=== PATIENT | female | born 1950 | race Caucasian/White ===

== ENCOUNTER 2020-04-10 10:12 | Emergency (ER) | payer MEDICARE, SELFPAY ==
--- NOTE | ~2020-04-10 | XR_ITS ---
EXAMINATION: XR shoulder LT min 2V DATE: 04/10/2020 10:45 INDICATION: Left shoulder injury and pain. TECHNIQUE: 4 views of left shoulder were obtained. COMPARISON: None. FINDINGS: There is an avulsion fracture of greater tuberosity of proximal humerus with 2 mm displacem ent. Glenohumeral joint is normal. There is mild acromioclavicular joint osteoarthritis. Electrodes o verlie the spine. There are widespread curvilinear densities in the visualized portions of the lungs, consistent with embolized bone cement. There are changes of vertebroplasty in thoracic spine. IMPRESSION: 1. Avulsion fracture of greater tuberosity of proximal left humerus. Reviewed, dictated and finalized at location A.
[2020-04-10 10:20] VITALS: BP 154/63; PULSE 78; RESP 20; TEMP 37.1; O2SAT 100
--- NOTE | 2020-04-10 10:46 | ED.UPPEXIN ---
HPI - Extremity Injury (Upper) General Chief Complaint: Extremity Injury, Upper Stated Complaint: left shoulder injury Time Seen by Provider: 04/10/20 10:46 Source: patient and RN notes reviewed Mode of arrival: ambulatory Limitations: no limitations History of Present Illness HPI narrative: 69-year-old female presents with concern for left shoulder injury. Reports this morning she was gardening and slipped on a slippery flower petal on her garage floor. Reports her left arm became hyper extended in front of her body. She reports pain with range of motion, weakness with range of motion, is unable to raise the arm to shoulder level. She denies any numbness and tingling in the hand. She denies any head injury, loss of consciousness, hip pain, other pain. MD complaint: injury to: left and shoulder Related Data Home Medications Medication Instructions Recorded Confirmed gabapentin 300 mg capsule 300 mg PO cap 10/12/19 multivitamin 1 tablet PO DAILY 10/12/19 aspirin 81 mg tablet,delayed 81 mg PO DAILY 12/28/19 release cholecalciferol (vitamin D3) 100 2,000 unit PO DAILY cap 12/28/19 mcg (4,000 unit) capsule ferrous sulfate 325 mg (65 mg 325 mg PO DAILY 12/28/19 iron) tablet furosemide 20 mg tablet 20 mg PO QAM PRN tablet 12/28/19 morphine 30 mg tablet,extended 30 mg PO Q8H tablet 12/28/19 release Allergies Allergy/AdvReac Type Severity Reaction Status Date / Time codeine Allergy Unknown Nausea Verified 04/10/20 10:21 sumatriptan Allergy Unknown chest pain Verified 04/10/20 10:21 Review of Systems Review of Systems: Narrative: CONSTITUTIONAL: Denies malaise, chills, sweats, or fever. CARDIOVASCULAR: Denies chest pain, palpitations, or edema. RESPIRATORY: Denies cough or dyspnea. SKIN: Denies abrasion, bruising, redness MUSCULOSKELETAL: Reports left shoulder pain, decreased range of motion NEUROLOGIC: Denies numbness, weakness All systems reviewed & are unremarkable except as noted in HPI and below PMFSH Past Medical History Medical History Anemia Arthritis Diabetes Social History Social History Smoking status: Never smoker Second hand tobacco smoke exposure: No Alcohol intake: never Comments At time of signature, agree with nursing past medical, surgical, social and family history. There is no relevant family history pertinent to the presenting complaint Exam Narrative: Exam Narrative: GENERAL: Well-appearing, well-nourished, and in no acute distress. HEAD: Normocephalic, atraumatic. EYES: PERRLA, conjunctivae clear NECK: Supple. CHEST: Speaks in full sentences. No respiratory distress. HEART: Regular rate and rhythm. Normal and equal peripheral pulses. EXTREMITIES: Left shoulder has normal sensation, no edema, limited range of motion. 3/5 strength with abduction and abduction flexion and extension. Normal sensation with sensitivity to light touch and pain. No open wounds, no skin tenting, no devitalized tissue or atrophy, no trophic changes, no ecchymosis, no obvious deformity, alignment normal, lateral joint tenderness, nearby joints and structures intact. Distal pulses palpable and equal bilaterally, skin warm, dry, pink. Capillary refill less than 3 seconds. SKIN: Warm, dry, no rash. NEURO: Alert and oriented x3. PSYCH: Normal mood and affect Course Course Emergency Course: Patient is aware of diagnosis, understands and agrees to treatment plan. Anticipatory guidance given. Patient agrees to follow-up as directed and is aware of reasons to seek care at the emergency department. Portions of this record may have been created with voice recognition software Vital Signs Vital signs: Vital Signs Temperature 98.7 F 04/10/20 10:20 Pulse Rate 78 04/10/20 10:20 Respiratory Rate 20 04/10/20 10:20 Blood Pressure 154/63 H 04/10/20 10:20 Pulse Oximetry 100 04/10/20
== END 2020-04-10 11:10 | disposition home or self-care (01) ==
PROVIDERS: Emergency Provider Nurse Practitioner; PCP Family Medicine
DX: S42.252A Displaced fracture of greater tuberosity of left humerus, initial encounter for closed fracture (principal); D64.9 Anemia, unspecified; M19.90 Unspecified osteoarthritis, unspecified site; E11.9 Type 2 diabetes mellitus without complications; Z79.84 Long term (current) use of oral hypoglycemic drugs; Z79.82 Long term (current) use of aspirin; W01.0XXA Fall on same level from slipping, tripping and stumbling without subsequent striking against object, initial encounter
CPT/HCPCS: 73030; 99214; A4565; G0463

== ENCOUNTER 2020-04-20 00:29 | Outpatient (CLI) | payer MEDICARE, SELFPAY ==
[2020-04-20 20:58] LABS: SARS-CoV-2 RNA PCR Negative
== END 2020-04-20 00:30 | disposition home or self-care (01) ==
LOC: ANHCOVIDDT 00:30
PROVIDERS: PCP Family Medicine; Visit Provider Orthopaedic Surgery
DX: Z01.812 Encounter for preprocedural laboratory examination (principal); Z11.59 Encounter for screening for other viral diseases
CPT/HCPCS: 87635; C9803; U0003

== ENCOUNTER 2020-04-20 08:00 | Outpatient (CLI) | payer MEDICARE, SELFPAY ==
--- NOTE | 2020-04-20 08:01 | ECG_ITS ---
Measurements Intervals [place] Rate: 61 P: 24 IA: 171 QRS: -17 QRSD: 95 T: -19 QT: 410 QTc: 416 Interpretive Statements SINUS RHYTHM POOR R WAVE PROGRESSION, ANTERIOR LEADS BORDERLINE T WAVE ABNORMALITY- INFERIOR LEADS BASELINE ARTIFACT- I, II, III, AVR, AVL, AVF BORDERLINE ECG Electronically Signed On 04-20-2020 8:48:26 CDT by Roberto Pelletier D.O.
[2020-04-20 08:53] LABS: Hematocrit 38.3 % (37.0-47.0); Hemoglobin 12.3 g/dL (12.0-15.0)
[2020-04-20 09:06] LABS: Blood Urea Nitrogen 27 mg/dL (7-17); Calcium 9.6 mg/dL (8.4-10.2); Carbon Dioxide 28 mmol/L (22-30); Chloride 104 mmol/L (98-107); Estimated Glomerular Filt Rate > 60; Glucose 96 mg/dL (65-105); Potassium 3.7 mmol/L (3.4-5.0); Sodium 139 mmol/L (137-145)
== END 2020-04-20 08:01 | disposition home or self-care (01) ==
PROVIDERS: Anesthesiology; PCP Family Medicine; Visit Provider Orthopaedic Surgery
DX: D64.9 Anemia, unspecified (principal); E11.9 Type 2 diabetes mellitus without complications; I10 Essential (primary) hypertension; R94.31 Abnormal electrocardiogram [ECG] [EKG]
CPT/HCPCS: 36415; 80048; 85014; 85018; 87635; 93005; C9803; U0003

== ENCOUNTER 2020-04-23 01:26 | Day surgery (SDC) | payer MEDICARE, SELFPAY ==
[2020-04-19 13:23] VITALS: BMI 23.7
--- NOTE | 2020-04-22 16:08 | WPDANESEPP ---
Anes - Eval Pre Procedure Procedure: Operation Date: 04/23/20 07:30 Proposed Procedures p Open Reduction Internal Fixation Left Shoulder Greater Tuberosity Fracture - Moises Hernandez MD Date/Time: 04/22/20 16:08 Pre Op Diagnosis: Left Greater Tuberosity Fracture Patient Data Age: 69 Gender: F Height: 1.6 m Weight: 60.78 kg Allergies Allergy/AdvReac Type Severity Reaction Status Date / Time No Known Allergies Allergy Verified 04/19/20 12:54 Home Medications Medication Instructions Recorded Confirmed Type gabapentin 300 mg capsule 300 mg PO DAILY cap 10/12/19 04/19/20 History multivitamin 1 tablet PO DAILY 10/12/19 04/19/20 History amlodipine 5 mg tablet 5 mg PO DAILY #90 tablet 12/16/19 04/19/20 Rx atorvastatin 10 mg tablet 10 mg PO DAILY #90 tablet 12/16/19 04/19/20 Rx diclofenac sodium 75 mg 75 mg PO BID #60 tablet 12/16/19 04/19/20 Rx tablet,delayed release hydrochlorothiazide 12.5 mg capsule 12.5 mg PO DAILY #90 cap 12/16/19 04/19/20 Rx metformin 500 mg tablet,extended 1,000 mg PO QPM #180 tablet 12/16/19 04/19/20 Rx release 24 hr cholecalciferol (vitamin D3) 100 2,000 unit PO DAILY cap 12/28/19 04/19/20 History mcg (4,000 unit) capsule ferrous sulfate 325 mg (65 mg 325 mg PO DAILY 12/28/19 04/19/20 History iron) tablet furosemide 20 mg tablet 20 mg PO QAM PRN tablet 12/28/19 04/19/20 History morphine 30 mg tablet,extended 30 mg PO Q8H tablet 12/28/19 04/19/20 History release tizanidine 2 mg tablet 2 mg PO TID PRN #90 tablet 12/29/19 04/19/20 Rx lisinopril 40 mg tablet 40 mg PO DAILY #90 tablet 02/27/20 04/19/20 Rx oxybutynin chloride 10 mg 10 mg PO .COMPLEX PRN #90 tablet 04/02/20 04/19/20 Rx tablet,extended release 24 hr vit C 250 mg-E 200 unit-zinc 40 1 tablet PO BID 04/12/20 04/19/20 History mg-copper 1 [id number] capsule Patient hx anesthesia problems: none Family hx anesthesia problems: none PMFSH Past Medical History Medical History Anemia Arthritis Back pain Diabetes A1C = 5.9 (08/01/2019) Hepatitis HTN (hypertension) Shingles Surgical History Surgical History (Updated 04/22/20 @ 16:09 by Rodríguez Bhagat CRNA) History of hernia repair (~05/30/15) History of hernia repair (~05/04/13) History of tonsillectomy and adenoidectomy Hx of appendectomy (~12/31/11) Family History Family History Grandparent Diabetes mellitus Father Acute myocardial infarction, Onset Age: 49 Sibling Malignant neoplasm of prostate Social History Social History Smoking status: Never smoker Second hand tobacco smoke exposure: No Alcohol intake: never Exam Day of Procedure 04/22/20 16:08
[2020-04-23] VITALS (10 sets, daily range): BP systolic 112–159; BP diastolic 58–70; PULSE 58–102; RESP 12–20; TEMP 35.8–36.4; O2SAT 92–98
--- NOTE | ~2020-04-23 | XR_ITS ---
EXAMINATION: XR shoulder LT min 2V DATE: 04/23/2020 10:31 INDICATION: Postoperative evaluation following left shoulder surgery. TECHNIQUE: AP and transscapular Y views of the left shoulder were obtained. COMPARISON: 04/10/2020 FINDINGS: And seen is a comminuted fracture of the left greater tuberosity. There appears to be slightly decrea sed in the degree of distraction of a few of the fragments at the junction of the posterior and middl e facets. Normal alignment at the acromioclavicular and glenohumeral joints with relatively preserved joint spaces. Numerous tiny linear and branching linear opacities throughout the left lung consisten t with embolized methylmethacrylate likely related to a lower thoracic vertebroplasty. Spinal stimula tor leads project over the lower thoracic spine. IMPRESSION: Comminuted fractures of the left greater tuberosity with decreased distraction of a few the bone frag ments. Reviewed, dictated and finalized at location A. IMPRESSION: Comminuted fractures of the left greater tuberosity with decreased distraction of a few the bone fragments.
[2020-04-23] MEDS: LACTATED RINGERS 1,000 ML 30 ML IV CONT ×2 (06:30→08:58)
[2020-04-23 06:39] LABS: Glucose Point of Care 99 (65-105)
--- NOTE | 2020-04-23 06:50 | WPDANESEPPF ---
Anes - Initial Pre Proc Eval Procedure: Operation Date: 04/23/20 07:30 Proposed Procedures p Open Reduction Internal Fixation Left Shoulder Greater Tuberosity Fracture - Moises Hernandez MD Date/Time: 04/23/20 06:50 Surgeon: Moises Hernandez MD Pre Op Diagnosis: Left Greater Tuberosity Fracture Patient Data Age: 69 Gender: F Height: 1.6 m Weight: 60.78 kg Allergies Allergy/AdvReac Type Severity Reaction Status Date / Time No Known Allergies Allergy Verified 04/19/20 12:54 Home Medications Medication Instructions Recorded Confirmed Type gabapentin 300 mg capsule 300 mg PO DAILY cap 10/12/19 04/19/20 History multivitamin 1 tablet PO DAILY 10/12/19 04/19/20 History amlodipine 5 mg tablet 5 mg PO DAILY #90 tablet 12/16/19 04/19/20 Rx atorvastatin 10 mg tablet 10 mg PO DAILY #90 tablet 12/16/19 04/19/20 Rx diclofenac sodium 75 mg 75 mg PO BID #60 tablet 12/16/19 04/19/20 Rx tablet,delayed release hydrochlorothiazide 12.5 mg capsule 12.5 mg PO DAILY #90 cap 12/16/19 04/19/20 Rx metformin 500 mg tablet,extended 1,000 mg PO QPM #180 tablet 12/16/19 04/19/20 Rx release 24 hr cholecalciferol (vitamin D3) 100 2,000 unit PO DAILY cap 12/28/19 04/19/20 History mcg (4,000 unit) capsule ferrous sulfate 325 mg (65 mg 325 mg PO DAILY 12/28/19 04/19/20 History iron) tablet furosemide 20 mg tablet 20 mg PO QAM PRN tablet 12/28/19 04/19/20 History morphine 30 mg tablet,extended 30 mg PO Q8H tablet 12/28/19 04/19/20 History release tizanidine 2 mg tablet 2 mg PO TID PRN #90 tablet 12/29/19 04/19/20 Rx lisinopril 40 mg tablet 40 mg PO DAILY #90 tablet 02/27/20 04/19/20 Rx oxybutynin chloride 10 mg 10 mg PO .COMPLEX PRN #90 tablet 04/02/20 04/19/20 Rx tablet,extended release 24 hr vit C 250 mg-E 200 unit-zinc 40 1 tablet PO BID 04/12/20 04/19/20 History mg-copper 1 [id number] capsule Laboratory Tests 04/23/20 06:33 POC Capillary Glucose 99 mg/dl mg/dl (65-105) ECG: Date of Service: 04/20/20 Procedure(s): CA 12 lead EKG Accession Number(s): [id number] cc: ~ Measurements Intervals [place] Rate: 61 P: 24 DC: 171 QRS: -17 QRSD: 95 T: -19 QT: 410 QTc: 416 Interpretive Statements SINUS RHYTHM POOR R WAVE PROGRESSION, ANTERIOR LEADS BORDERLINE T WAVE ABNORMALITY- INFERIOR LEADS BASELINE ARTIFACT- I, II, III, AVR, AVL, AVF BORDERLINE ECG Electronically Signed On 04-20-2020 8:48:26 CDT by Roberto Pelletier D.O. Dictated By: Roberto Pelletier DO 04/20/20 0832 Patient hx anesthesia problems: none Family hx anesthesia problems: none PMFSH Past Medical History Medical History Anemia Arthritis Back pain Diabetes A1C = 5.9 (08/01/2019) Hepatitis HTN (hypertension) Shingles Surgical History Surgical History (Updated 04/22/20 @ 16:09 by Rodríguez Bhagat CRNA) History of hernia repair (~05/30/15) History of hernia repair (~05/04/13) History of tonsillectomy and adenoidectomy Hx of appendectomy (~12/31/11) Family History Family History Grandparent Diabetes mellitus Father Acute myocardial infarction, Onset Age: 49 Sibling Malignant neoplasm of prostate Social History Social History Smoking status: Never smoker Second hand tobacco smoke exposure: No Alcohol intake: never Anes - Eval Final PreProcedure Day of Procedure 04/23/20 06:50 Informed Consent: The patient's anesthetic plan and its attendant risks and benefits were discussed with the patient/family/POA. Questions were wagner
--- NOTE | 2020-04-23 06:52 | P.PNAN_ITS ---
Anes - Eval Final PreProcedure Day of Procedure 04/23/20 06:52 Patient weight: normal Heart: regular rate and rhythm Lungs: clear to auscultation and normal air movement Airway: Mallampati scale class II Neurological: alert and oriented Last oral intake: >/= 8 hours ASA classification: III Emergent: no Anesthetic plan: proceed Anesthesia type and monitoring: general ETT Informed Consent: The patient's anesthetic plan and its attendant risks and b enefits were discussed with the patient/family/POA. Questions were solicited and answers provided to the satisfaction of the patient/family/POA.
--- NOTE | 2020-04-23 07:00 | WPDANESPNB ---
Anes - Peripheral Nerve Block Date/Time: 04/23/20 07:00 I have discussed with the patient/family/POA the placement of a peripheral nerve block for post-operative pain management, including associated risks, benefits, complications, and side effects. Alternative methods of post-operative analgesia were detailed. Questions were solicited and answers provided to the satisfaction of the patient/family/POA. Time-Out: A pre-procedural Time-Out was completed immediately before starting the procedure and confirmed: Patient Identification, Site, Procedure, Patient Position and the Availability of Requisite Equipment. Clinical Indications: Acute post-operative pain management requested by the operative surgeon. Nerve Block Insertion Note Anes-nerve block: supraclavicular left Patient position: supine Skin prep: chlorhexidine Needle: 22 gauge, stimulating, insulated echogenic needle. Needle length: 80 mm Technique: ultrasound (in plane) Injectate: bupivacaine 0.5% with epi 5 mcg/ml (20cc) Observations: tolerated well Complications: none Procedure start time:: 726 Procedure end time:: 730
--- NOTE | 2020-04-23 07:14 | WPDHPUPDATE1 ---
History and Physical Update Update Date/Time: 04/23/20 07:14 History and Physical has been reviewed, including an updated exam of the patient. There are NO changes in the patient's condition. Risks, benefits, and alternatives have been discussed and questions answered. Patient agrees to proceed with procedure.
[2020-04-23] MEDS: ceFAZolin 2 GM/D5W 50 ML 2 GM/50 ML BAG IVPB (07:31)
[2020-04-23] MEDS: BUPIVACAINE/EPINEPHRINE 0.25% 50 ML VIAL INFILTRATE (08:15)
--- NOTE | 2020-04-23 09:01 | PM.PROC ---
Procedure Note - Detailed Date of procedure: 04/23/20 Pre-op diagnosis: Left Greater Tuberosity Fracture Post-op diagnosis: same Procedure performed: Open reduction internal fixation left shoulder greater tuberosity fracture with repair of the rotator cuff Description of procedure: Patient was identified and proper site identified. In the preop holding area the anesthesia team performed a left upper extremity block. She was then taken to the operating room and transferred to the or table taking care to pad the torso and extremities. After general anesthetic induction and intubation, she was put in a semi beach chair position in the usual manner for a left shoulder procedure. Her head was secured taking care to neither rotate nor extend the head and neck. The left upper extremity was prepped and draped free in usual sterile fashion. The subcutaneous tissue in the area of the incision was injected with 10 cc of 0.25% Marcaine and epinephrine solution. An oblique anterior incision was made extending from the AC joint distally in line with the fibers of the deltoid. Subcutaneous tissue was sharply dissected down to the deltoid fascia. The deltoid was dissected off the anterior portion of the acromion in the distal end of the clavicle. A 3 cm split was made at the junction between the anterior and middle thirds of the deltoid. Care was taken to protect the axillary nerve during the procedure. The rotator cuff and greater tuberosity were examined. The main fragment of greater tuberosity was retracted with the cuff about 2 cm. The fracture site was cleared of debris and after thorough irrigation of the wound, the greater tuberosity fracture and rotator cuff were repaired back to their anatomic position with 2. Or and 2. Vicryl suture through bony bridge. This gave a ac repair which was stable as the shoulder was taken through range of motion. The wound was irrigated with sterile NaCl solution. The deltoid was repaired back to the acromion with 2. Vicryl suture passed through bone and the remainder of the deltoid repair carried out with 2. Vicryl. Subcutaneous tissue was reapproximated with three 0 V lock and tissue adhesive used for the skin. Sterile dressing was applied. There were no known intraoperative complications, and perioperative antibiotics were administered. Anesthesia: GETA Surgeon: Moises Hernandez MD Estimated blood loss (mL): 30 Drains: No Packing: No Pathology: none sent Complications: No immediate complications Condition: stable Disposition: PACU
[2020-04-23 09:02] LABS: Glucose Point of Care 105 (65-105)
--- NOTE | 2020-04-23 12:15 | SUR.PHASEII ---
1118 xrays of left shoulder done.
== END 2020-04-23 11:45 | disposition home or self-care (01) ==
PROVIDERS: PCP Family Medicine; Visit Provider Orthopaedic Surgery
PROC: (CPT 23410; principal; 2020-04-23 07:30)
DX: S42.252A Displaced fracture of greater tuberosity of left humerus, initial encounter for closed fracture (principal); S46.012A Strain of muscle(s) and tendon(s) of the rotator cuff of left shoulder, initial encounter; G89.18 Other acute postprocedural pain; W01.0XXA Fall on same level from slipping, tripping and stumbling without subsequent striking against object, initial encounter; D64.9 Anemia, unspecified; D11.9 Benign neoplasm of major salivary gland, unspecified; M19.90 Unspecified osteoarthritis, unspecified site; E11.9 Type 2 diabetes mellitus without complications; Z79.84 Long term (current) use of oral hypoglycemic drugs; Z79.82 Long term (current) use of aspirin
CPT/HCPCS: 64415; 23410; 73030; A4565; A9270; J0330; J0690; J1100; J2250; J2405; J2704; J3010; J7120

== ENCOUNTER 2020-06-18 10:05 | Emergency (ER) | payer MEDICARE, SELFPAY ==
[2020-06-18] VITALS (21 sets, daily range): BP systolic 127–152; BP diastolic 65–79; PULSE 71–108; RESP 13–25; TEMP 37.3; O2SAT 79–100
--- NOTE | 2020-06-18 10:19 | ED.GENADULT ---
HPI - General Adult General Chief complaint: Unspecified Stated complaint: sent to get labs drawn/doesnt feel right Time Seen by Provider: 06/18/20 10:18 History of Present Illness HPI narrative: 69 yo female presents from home for not feeling right . She reports that she has not been feeling well for a few days. This includes nausea, genralized weakness, and tremors. SHe reports the nausea has been presnet longer, so she has not been eating well. She had a recent left shoulder surgery. Following this she had some redeness of the shoulder and was started on antibiotics. She says that this is improving. She has chronic pain issues and is on morphine 30 mg [id number]. She has chronic constipation. Related Data Home Medications Medication Instructions Recorded Confirmed multivitamin 1 tablet PO DAILY 10/12/19 06/14/20 cholecalciferol (vitamin D3) 100 2,000 unit PO DAILY cap 12/28/19 06/14/20 mcg (4,000 unit) capsule ferrous sulfate 325 mg (65 mg 325 mg PO DAILY 12/28/19 06/14/20 iron) tablet furosemide 20 mg tablet 20 mg PO QAM PRN tablet 12/28/19 06/14/20 morphine 30 mg tablet,extended 30 mg PO Q8H tablet 12/28/19 06/14/20 release vit C 250 mg-E 200 unit-zinc 40 1 tablet PO BID 04/12/20 06/14/20 mg-copper 1 [id number] capsule aspirin [Alanna Chewable Aspirin] 81 mg PO DAILY 06/18/20 Allergies Allergy/AdvReac Type Severity Reaction Status Date / Time No Known Allergies Allergy Verified 06/19/20 13:41 Review of Systems Review of Systems: All systems reviewed & are unremarkable except as noted in HPI and below Constitutional: Constitutional: Reports chills, Denies fever(s) and Reports weakness Cardiovascular: Cardiovascular: Denies chest pain Respiratory: Respiratory: Reports dyspnea Gastrointestinal: Gastrointestinal: Reports bloating and Reports nausea Genitourinary: Genitourinary: Denies dysuria Musculoskeletal: Musculoskeletal: Reports back pain Neurologic: Reports dizziness, Denies syncope and Reports weakness Psychiatric: Psychiatric: Denies anxiety PMFSH Past Medical History Medical History Anemia Arthritis Back pain BMI 25.0-25.9,adult Diabetes A1C = 5.9 (08/01/2019) Hepatitis HTN (hypertension) Shingles Surgical History Surgical History Fracture of greater tuberosity of left humerus ORIF March 2020 History of hernia repair (~05/30/15) History of hernia repair (~05/04/13) History of tonsillectomy and adenoidectomy Hx of appendectomy (~12/31/11) Family History Family History Grandparent Diabetes mellitus Father Acute myocardial infarction, Onset Age: 49 Sibling Malignant neoplasm of prostate Social History Social History Smoking status: Never smoker Second hand tobacco smoke exposure: No Alcohol intake: never Exam Const: General: no acute distress and alert Orientation/consciousness: patient oriented x3 HENMT: Head: normal to inspection Eyes: Pupils: Equal, round and reactive pupils present Resp: Effort & Inspection: normal respiratory effort Auscultation: clear to auscultation bilaterally Cardio: Rate: regular rate Rhythm: regular rhythm GI: GI Palp: Yes Soft to palpation and No Tenderness to palpation present (GI) Skin: Other: Mild eryhema around healed left shoulder incision Neuro: General: patient oriented x3 and moves all extremities Speech: normal speech Other: Tremulous Course Vital Signs Vital signs: Vital Signs Pulse Rate 97 06/18/20 10:14 Respiratory Rate 18 06/18/20 10:14 Pulse Oximetry 100 06/18/20 10:14 Temperature 37.3 C 06/18/20 10:16 Pulse Rate 71 06/18/20 13:03 Respiratory Rate 15 06/18/20 13:03 Blood Pressure 135/68 06/18/20 12:46 Pulse Oximetry 100
--- NOTE | 2020-06-18 10:21 | ECG_ITS ---
Measurements Intervals [place] Rate: 95 P: 58 [place]: 149 QRS: -26 QRSD: 82 T: 25 QT: 342 QTc: 431 Interpretive Statements SINUS RHYTHM POSSIBLE LEFT ATRIAL ENLARGEMENT BORDERLINE R WAVE PROGRESSION, ANTERIOR LEADS BASELINE ARTIFACT- I, II, III, AVR, AVL, AVF, V4 BORDERLINE ECG Electronically Signed On 06-18-2020 10:31:00 CDT by Roberto Pelletier D.O.
[2020-06-18] MEDS: SODIUM CHLORIDE 0.9% IV 1,000 ML 999 ML IV CONT (10:52)
[2020-06-18 10:57] LABS: Basophils Absolute Auto 0.1 K/mm3 (0.0-0.1); Basophils Percent Auto 0.6 % (0.2-1.2); Eosinophils Absolute Auto 0.1 K/mm3 (0-0.3); Eosinophils Percent Auto 0.5 % (0-4.4); Hematocrit 35.8 % (37.0-47.0); Hemoglobin 11.5 g/dL (12.0-15.0); Immature Granulocyte Absolute 0.05 K/mm3 (0.00-0.031); Immature Granulocyte Percent A 0.4 % (0-0.5); Lymphocytes Absolute Auto 1.31 K/mm3 (0.9-3.2); Lymphocytes Percent Auto 11.5 % (18.3-44.2); Mean Corpuscular HGB Conc 32.1 g/dl (32-36); Mean Corpuscular Hemoglobin 28.9 pg (26-34); Mean Corpuscular Volume 89.9 fl (80-100); Mean Platelet Volume 10.2 fl (7.4-10.4); Monocytes Absolute Auto 0.9 K/mm3 (0.1-0.6); Monocytes Percent Auto 7.9 % (2.6-8.5); Neutrophils Percent Auto 79.1 % (45.5-73.1); Platelet Count Result 506 k/mm3 (150-375); Red Blood Count 3.98 M/mm3 (4.2-5.4); Red Cell Distribution Width 13.2 % (11.5-14.5); White Blood Count 11.4 K/mm3 (4.5-10.0)
[2020-06-18 11:10] LABS: Alanine Aminotransferase 23 U/L (4-35); Albumin Level 4.5 g/dL (3.5-5.1); Alkaline Phosphatase 116 U/L (38-126); Anion Gap 14 mmol/L (8-16); Aspartate Amino Transferase 31 U/L (14-36); Bilirubin,Total 0.1 mg/dL (0.2-1.3); Blood Urea Nitrogen 35 mg/dL (7-17); Calcium 10.8 mg/dL (8.4-10.2); Carbon Dioxide 19 mmol/L (22-30); Chloride 104 mmol/L (98-107); Estimated CRCL calculation 22 ml/min; Estimated Glomerular Filt Rate 28; Glucose 136 mg/dL (65-105); Potassium 5.1 mmol/L (3.4-5.0); Sodium 137 mmol/L (137-145)
[2020-06-18 11:24] LABS: Add Urine Microscopic? YES; Appearance Urine Clear (Clear); Bacteria Urine Trace /hpf; Bilirubin Urine Negative (Negative); Blood Urine Negative (Negative); Color Urine Yellow (Yellow); Glucose Urine UA Negative (Negative); Ketones Urine Negative (Negative); Leukocyte Esterase Ur Negative LEU/UL (Negative); Mucus Urine Rare /lpf; Nitrate Urine Negative (Negative); Protein Urine Negative (Negative); RBC Urine 0-2 /hpf (0-2); Specific Grav Ur 1.016 (1.001-1.035); Squamous Epithelial Cell Urine Few /hpf (Few); Urobilinogen Urine Negative mg/dL (<2.0); WBC Urine 0-3 /hpf
[2020-06-18 11:40] LABS: Thyroid Stimulating Hormone 0.941 uIU/mL (0.465-4.680)
== END 2020-06-18 13:39 | disposition home or self-care (01) ==
PROVIDERS: Emergency Provider Emergency Medicine; PCP Family Medicine
DX: N17.9 Acute kidney failure, unspecified (principal); E86.0 Dehydration; T81.49XA Infection following a procedure, other surgical site, initial encounter; L03.114 Cellulitis of left upper limb; M19.90 Unspecified osteoarthritis, unspecified site; E11.9 Type 2 diabetes mellitus without complications; I10 Essential (primary) hypertension; D64.9 Anemia, unspecified; R94.31 Abnormal electrocardiogram [ECG] [EKG]; Z79.82 Long term (current) use of aspirin; Z79.84 Long term (current) use of oral hypoglycemic drugs
CPT/HCPCS: 36415; 80053; 81001; 84443; 85025; 93005; 96360; 99283; J7030

== ENCOUNTER 2020-07-17 11:47 | Outpatient (CLI) | payer MEDICARE, SELFPAY ==
--- NOTE | 2020-07-17 12:05 | ECHO_ITS ---
Patient Info Name: Kate Mccormick Age: 70 years : 1950 Gender: Female Ht: 63 in Wt: 130 lbs BSA: 1.63 m2 HR: 65 bpm BP: 158 / 88 mmHg Heart Rhythm: Sinus Rhythm Technical Quality: Fair Exam Date: 07/17/2020 12:13 PM Exam Location: [facility] Patient Status: Outpatient Admit Date: 07/17/2020 Staff Ordering Physician: Viet Juarez MD Principal Technical Writer: Faisal Harrison RDCS Attending Provider: Viet Juarez MD Referring Physician: Larry AYALA; Exam Type: CA echo doppler color flow Study Info Indications I50.9 - Heart failure, unspecified Complete two-dimensional, color flow and Doppler transthoracic echocardiogram is performed. History/Risk Factors Dyspnea. Summary 1. Complete two-dimensional, color flow and Doppler transthoracic echocardiogram is performed. 2. Left ventricular chamber dimension is normal. 3. Left ventricular systolic function is normal, estimated at 60-65%. 4. The left ventricular diastolic function is grade I diastolic dysfunction. 5. E/e' 13 is mildly elevated. 6. Left atrial chamber dimension is mildly enlarged. 7. There is severe aortic valve sclerosis. 8. There is mild aortic valve stenosis with a peak velocity of 214 cm/s, mean gradient of 10 mmHg, and aortic valve area of 1.5 cm2. 9. There is mild aortic valve regurgitation. 10. There is trace pulmonic regurgitation. Left Ventricle E/e' 13 is mildly elevated. Left ventricular chamber dimension is normal. Left ventricular systolic function is normal, estimated at 60-65%. The left ventricular diastolic function is grade I diastolic dysfunction. Right Ventricle Right ventricular chamber dimension is normal. Right ventricular systolic function is normal. Left Atria Left atrial chamber dimension is mildly enlarged. Right Atria Right atrial chamber dimension is normal. Aortic Valve The aortic valve is trileaflet. There is severe aortic valve sclerosis. There is mild aortic valve stenosis with a peak velocity of 214 cm/s, mean gradient of 10 mmHg, and aortic valve area of 1.5 cm2. There is mild aortic valve regurgitation. Pulmonic Valve There is trace pulmonic regurgitation. Mitral Valve There is no mitral valve stenosis. There is no mitral valve regurgitation. Tricuspid Valve There is no tricuspid valve regurgitation. Pericardium/Pleural There is no pericardial effusion. Inferior Vena Cava Normal inferior vena cava with >50% collapse upon inspiration consistent with normal right atrial pressure, 5 mmHg. Aorta The aortic root size at the sinus of Valsalva is normal. Left Ventricular Outflow Tract Name Value Normal LVOT 2D LVOT Diameter 2.0 cm LVOT Doppler LVOT Peak Gradient 5 mmHg LVOT Mean Gradient 2 mmHg LVOT VTI 23 cm LVOT VTI/AV VTI Ratio 0.5 LVOT Stroke Volume 71 ml LVOT CO 4.3 l/min LVOT CI 2.6 l/min/m2 Mitral Valve
== END 2020-07-17 11:48 | disposition home or self-care (01) ==
PROVIDERS: PCP Family Medicine; Visit Provider Family Medicine
DX: I50.9 Heart failure, unspecified (principal); I08.3 Combined rheumatic disorders of mitral, aortic and tricuspid valves
CPT/HCPCS: 93306

== ENCOUNTER 2020-09-06 10:00 | Outpatient (RCR) | payer MEDICARE, SELFPAY ==
[2020-06-15 12:30] VITALS: BP_SYST 55
--- NOTE | 2020-06-15 13:49 | PTOPEVAL ---
PHYSICAL THERAPY EVALUATION AND PLAN OF CARE 06-15-2020 Thank you for referring Mrs. Mccormick to [facility].? She is scheduled to be seen for therapy? 2 x/week for 4 weeks. Please review, sign, date and return this plan of care BERNARD. I agree with and certify that the following plan of care is medically necessary. Referring Physician Date Attending Provider: Moises Hernandez MD *PT Outpatient Evaluation Start: 06/15/20 12:36 Document 06/15/20 12:30 LAKSHMI (Rec: 06/15/20 13:40 LAKSHMI [id number]) Therapy Assessment Status Assessment Status Assessment Status Evaluation Outpatient Past Medical History Past Medical History Source of Past Medical History Patient Neurological History Hx Neurological Disorders No Significant History Cardiovascular History Hx Hypercholesterolemia Yes Hx Hypertension Yes: meds Respiratory History Hx Respiratory Disorders No Significant History Gastrointestinal History Hx Appendectomy Yes Hx Hernia Yes: BILAT INGUINAL HERNIA REPAIR Genitourinary History Hx Genitourinary Disorders No Significant History Musculoskeletal History Hx Back Pain Yes: scoliosis Hx Degenerative Disk Disease Yes: lumbar Hx Other Musculoskeletal Disorders Yes: SPINAL CORD STIMULATOR R low back/pain clinic Hematological History Hx Anemia Yes: TAKES PO IRON Endocrine History Hx Diabetes Yes: meds HEENT History Hx Tonsillectomy Yes Integumentary History Hx Shingles Yes Reproductive History Hx Post Menopausal Yes Psychosocial History Hx Psychiatric Disorders No Significant History Pain History Has Past Pain Affected Your Daily Life Yes: CHRONIC BACK PAIN History of Long-Term Prescription Pain Yes: MORPHINE PO X 2-3 YRS Medication Use (Opiates) Anesthesia History Hx Anesthesia Reactions No Significant History Other History Hx Implanted Device Yes: SPINAL CORD STIMULATOR Evaluation Information Problem Diagnosis s/p L shoulder surgery- rotator cuff repair and greater tuberosity humral fx repair Onset 04-30-20 Subjective Information fall with L shoulder injury; Query Text:As Reported By Patient/ using sling; saw yesterday Family and all is good with her shoulder; is on an antibiotic due to redness and irritation of shoulder; is doing pendulum exercises- about once/day; Prior Level of Function Activity Level (Last 3 Months) Occupation retired Hand Dominance Right
--- NOTE | 2020-07-12 10:48 | PTOPEVAL ---
PHYSICAL THERAPY RE-EVALUATION AND UPDATED PLAN OF CARE 07-12-2020 Refer to the clinical summary section below for a comparison to her initial evaluation. Thank you for referring Kate Mccormick to [facility].? She is scheduled to continue therapy? 2 x/week for 5 weeks. Please review, sign, date and return this plan of care BERNARD. I agree with and certify that the following plan of care is medically necessary. Referring Physician Date Attending Provider: Moises Hernandez MD *PT Outpatient Re- Evaluation Document 07/12/20 09:55 LAKSHMI (Rec: 07/12/20 10:48 LAKSHMI [id number]) Subjective Information Kate reports: is Query Text:As Reported By Patient/ assisting her with bathing, Family dressing, putting on shoes, cleaning and heavy tasks; she is using R arm for dusting, light tasks; to see dr next week and have an MRI scheduled next week; self assessment functional score with the Quick DASH is 82% limitation in activity; Discussed insurance with pt and authorization required for additional therapy sessions, and she completed her section of the form and signed it. Pain Assessment Timing of Pain Assessment Timing of Pain Assessment Assessment Pain Scale Pain Scale Used Numeric (1 - 10) Self Report Pain Assessment Left Shoulder(s) Reported Pain Level 4 Pain Description Aching,Soreness Radicular Pain Location upper humerus sore & red area over incision-less red,blister & some drainage Pain Frequency Acute Lowest Pain Intensity 3 Greatest Pain Intensity 7 Pain Aggravating Factors Exercise/Activity Pain Relief Interventions Used By Elevation,Heat,Inactivity/Rest Patient Other Alleviating Interventions sling when out of home; in home, prop on pillow in sitting Additional Pain Comments sleeping in bed some, but couch comfortable for support to arm; Pain Score Pain Score 4: Self Report Upper Extremity Range of Motion General Upper Extremity Range of Motion Gross Upper Extremity Range of Motion L UE: Comments -use of pully to warm up and passive self- stretch to L shoulder flexion and abduction
--- NOTE | 2020-07-12 11:05 | PCPTNOTE ---
with the reevaluation today- completed [employer] form for pre authorization of visits; gave to Verónica Erickson to submit to [employer];
--- NOTE | 2020-08-17 11:39 | PTOPEVAL ---
PHYSICAL THERAPY REEVALUATION AND UPDATED PLAN OF CARE 08-17-2020 Thank you for referring Kate Mccormick to [facility].?She is scheduled to continue therapy? 2x/week for 3 weeks. Please review, sign, date and return this plan of care BERNARD. I agree with and certify that the following plan of care is medically necessary. Referring Physician Date Attending Provider: Moises Hernandez MD *PT Outpatient Re-Evaluation Document 08/17/20 10:45 LAKSHMI (Rec: 08/17/20 11:39 LAKSHMI [id number]) Subjective Information Kate reports: still weak in Query Text:As Reported By Patient/ arm- cannot lift it up; Family trying to make arm do things in kitchen-hold things; am very frustrated with the arm; doing exercises at home;pain as soon as start to move arm; not use heat or ice at home; self assessment DASH is 73% Pain Assessment Timing of Pain Assessment Timing of Pain Assessment Assessment Pain Scale Pain Scale Used Numeric (1 - 10) Self Report Pain Assessment Left Shoulder(s) Reported Pain Level 0 Pain Frequency Chronic Other Pain Description hurts and sore over upper humerus Lowest Pain Intensity 0 Greatest Pain Intensity 7 Pain Aggravating Factors Exercise/Activity Pain Behaviors Anxious,Guarding Pain Score Pain Score 0: Self Report Additional Pain Score Comments sleeping in the bed, on her back, does not awaken due to shoulder pain; Interventions Used Interventions Used By Clinicians Exercise Upper Extremity Range of Motion General Upper Extremity Range of Motion Gross Upper Extremity Range of Motion pully and wall slide for warm Comments up and stretch to L shoulder: AROM in standing/ AAROM supine : flexion 30'/125'; abduction 40'/110', ER, IR- reach behind back, palm to above waist; supine shoulder ER with elbow at side 20'; Upper Extremity Muscle Strength Testing General Upper Extremity Strength Gross Upper Extremity Strength Comments L UE: shoulder extension to 40 ' with 2# hand wt x 5 reps; shoulder IR- reach behind back 2# x 5 reps; elbow flexion/ extension 2# x reps; With flexion, abduction and ER - not able to activel
[2020-09-06 10:05] VITALS: BP_SYST 100
--- NOTE | 2020-09-06 10:52 | PTOPEVAL ---
PHYSICAL THERAPY DISCHARGE 09-06-2020 Refer to the clinical summary below for pt's status. The goals were partially achieved. Discharge from PT this date and Kate is to continue with her shoulder exercises at home. Thank you for referring Kate Mccormick to [facility].? Please review, sign, date and return this discharge BERNARD. I agree with and certify that the following plan of care is medically necessary. Referring Physician Date Attending Provider: Moises Hernandez MD *PT Outpatient discharge Document 09/06/20 10:05 LAKSHMI (Rec: 09/06/20 10:46 LAKSHMI [id number]) Problem Subjective Information Kate reports: shoulder is Query Text:As Reported By Patient/ better-- not hurting as much Family as it was; still weak and cannot use it; Pain Assessment Timing of Pain Assessment Timing of Pain Assessment Assessment Pain Scale Pain Scale Used Numeric (1 - 10) Self Report Pain Assessment Left Shoulder(s) Reported Pain Level 2 Pain Description Pulling,Tightness Pain Frequency Chronic Other Pain Description weak in shoulder Lowest Pain Intensity 0 Greatest Pain Intensity 6 Pain Score Pain Score 2: Self Report Interventions Used Interventions Used By Clinicians Exercise,Ice Upper Extremity Range of Motion General Upper Extremity Range of Motion Gross Upper Extremity Range of Motion pully in sitting- stretch and Comments strengthen shoulder flexion and scaption x 12 reps; warm up prior to exercises Scapular/ Shoulder Range of Motion Left Shoulder Flexion - Active 30 Shoulder Flexion - Passive 135 Shoulder Abduction - Active 45 Shoulder Abduction - Passive 100 Shoulder Medial Rotation - Active fingers to lower scapula Query Text:Reach Behind the Back Shoulder Lateral Rotation - Passive 20 Shoulder Lateral Rotation - Active palm to cheek Query Text:Reach Behind the Head Scapular/Shoulder Range of Motion ER in supine with elbow at Comments side; active in sitting; AAROM in supine Upper Extremity Muscle Strength Testing General Upper Extremity Strength Gross Upper Extremity Strength Comments standing: L elbow flexion/ext 3# x 10 reps; shoulder extension 3# x 12 reps; client service supervisor dynamometer 3rd slot 35#; Rehab Teaching Rehab Teaching Teaching Topic Rehab Teaching Topic Components Exercise,Home Program,Pain Management As Pertains To Body Mechanics Recipient Patient,Spouse Learning Preferences A
== END 2020-09-06 15:17 | disposition home or self-care (01) ==
LOC: ANHPT 10:00
PROVIDERS: PCP Family Medicine; Visit Provider Orthopaedic Surgery
DX: Z48.89 Encounter for other specified surgical aftercare (principal)
CPT/HCPCS: 97110; 97140; 97161

== ENCOUNTER 2020-12-29 13:35 | Emergency (ER) | payer MEDICARE, SELFPAY ==
[2020-12-29 13:57] VITALS: BP 143/69; PULSE 88; RESP 14; TEMP 37.1; O2SAT 98
[2020-12-29 14:14] VITALS: BP 143/69; PULSE 88; RESP 14; TEMP 37.1; O2SAT 98
--- NOTE | 2020-12-29 14:29 | ED.EAR ---
HPI - Ear Problem General Chief complaint: Ear Stated complaint: LT EAR PROB Time Seen by Provider: 12/29/20 14:29 Source: patient Mode of arrival: ambulatory Limitations: no limitations History of Present Illness HPI Narrative: Kate Mccormick is a 70 yo female with a PMH of HTN, high cholesterol, chronic pain, diabetes, bladder incontinence, who come to express care for L ear pain that feels like she is under water - started 2 days - used q tip to try and unclog ear Related Data Home Medications Medication Instructions Recorded Confirmed multivitamin 1 tablet PO DAILY 10/12/19 12/29/20 cholecalciferol (vitamin D3) 100 2,000 unit PO DAILY cap 12/28/19 12/29/20 mcg (4,000 unit) capsule ferrous sulfate 325 mg (65 mg 325 mg PO DAILY 12/28/19 12/29/20 iron) tablet furosemide 20 mg tablet 20 mg PO QAM PRN tablet 12/28/19 12/29/20 morphine 30 mg tablet,extended 30 mg PO Q8H tablet 12/28/19 12/29/20 release vit C 250 mg-vit E 90 mg-zinc 40 1 tablet PO BID 04/12/20 12/29/20 mg-copper 1 [id number] capsule hydrochlorothiazide 12.5 mg PO DAILY 12/29/20 12/29/20 Allergies Allergy/AdvReac Type Severity Reaction Status Date / Time No Known Allergies Allergy Verified 12/29/20 14:11 Review of Systems Review of Systems: Narrative: CONSTITUTIONAL: Denies fever, chills, sweats. EYES: Denies visual changes, redness, discharge. ENT: Denies rhinorrhea, congestion, sore throat, L otalgia. CARDIOVASCULAR: Denies chest pain, palpitations, edema. RESPIRATORY: Denies dyspnea, wheezing, cough GASTROINTESTINAL: Denies abdominal pain, nausea, vomiting, diarrhea. GENITOURINARY: Denies dysuria, hematuria, abnormal discharge SKIN: Denies rash or itching. NEUROLOGIC: Denies numbness, or focal weakness. PSYCHIATRIC: Denies anxiety or depression. [facility] Past Medical History Medical History (Updated 12/29/20 @ 14:48 by Angely Caceres CNP) Anemia Arthritis Back pain BMI 25.0-25.9,adult Diabetes A1C = 5.9 (08/01/2019) Hepatitis HTN (hypertension) Shingles Surgical History Surgical History Fracture of greater tuberosity of left humerus ORIF March 2020 History of hernia repair (~05/30/15) History of hernia repair (~05/04/13) History of tonsillectomy and adenoidectomy Hx of appendectomy (~12/31/11) Family History Family History Grandparent Diabetes mellitus Father Acute myocardial infarction, Onset Age: 49 Sibling Malignant neoplasm of prostate Social History Social History Smoking status: Never smoker Second hand tobacco smoke exposure: No Alcohol intake: never Comments At time of signature, I agree with nursing past medical, surgical, social and family history. There is no relevant family history pertinent to the presenting complaint. Blood pressure is elevated is a known hypertensive Exam Narrative: Exam Narrative: GENERAL: This is a well-nourished, well-developed patient, in mild distress. HEAD: normocephalic, atraumatic. EYES: PERRL. Sclera clear/white. Vision is grossly intact. EARS: External ears normal, auditory canals clear on R- L with redness, cotton in L ear canal. TMs appera normal without perforation with partial occlusion of L TM. Hearing grossly intact. NOSE: External nose normal without nasal discharge, nares without redness, no rhinorrhea. THROAT: Mucous membranes moist, NECK: Neck supple, CARDIOVASCULAR: Regular rate and rhythm without murmurs, gallops, or rubs. RESPIRATORY: Clear to auscultation. Breath sounds equal bilaterally. No wheezes, rales, or rhonchi. GASTROINTESTINAL: Abdomen soft, SKIN: warm, intact with no suspicious lesions or rash, good texture and turgor. NEURO: awake, alert, and oriented to person, place and time. There were no obvious focal neurologic abnormalities. Steady gait E
== END 2020-12-29 15:00 | disposition home or self-care (01) ==
PROVIDERS: Emergency Provider Nurse Practitioner; PCP Family Medicine
DX: T16.2XXA Foreign body in left ear, initial encounter (principal); X58.XXXA Exposure to other specified factors, initial encounter; M19.90 Unspecified osteoarthritis, unspecified site; E11.9 Type 2 diabetes mellitus without complications; I10 Essential (primary) hypertension; E78.00 Pure hypercholesterolemia, unspecified
CPT/HCPCS: 99213; G0463

== ENCOUNTER 2021-11-21 13:41 | Outpatient (CLI) | payer MEDICARE, SELFPAY ==
--- NOTE | ~2021-11-21 | CT_ITS ---
EXAMINATION: CT abdomen pelvis w con EXAM DATE: 11/21/2021 14:22 INDICATION: R10.32 - Left lower quadrant pain . Nausea TECHNIQUE: Spiral CT of the abdomen and pelvis was performed following intravenous injection of 100 m L Omnipaque 350. Axial, coronal and sagittal images of the abdomen and pelvis were reviewed. The do se-length product (DLP) for this examination was 294.78 mGy-cm. The exposure was tailored according to patient size (auto mA exposure control), and iterative reconstruction (ASIR) was used as additiona l dose reduction technique. Comparison is made to prior examination from 05/29/2014 FINDINGS: Spine stimulator. There is 7 cm cyst lower pole left kidney. Smaller renal cysts bilaterall y. The liver, spleen, adrenal glands and pancreas are unremarkable. Gallbladder is unremarkable. N o biliary obstruction. Portal and splenic veins are patent. Kidneys enhance symmetrically. There i s no hydronephrosis. Small calcified fibroids. The bladder is unremarkable. There is no retroperi toneal or pelvic lymphadenopathy. There is moderate scattered arteriosclerotic disease. Possible in terval right lower quadrant abdominal wall hernia repair. There are no findings to suggest appendicitis. The stomach and small bowel are unremarkable. Low-de nsity, loose appearing colonic stool. No colonic wall thickening. There is moderate sigmoid, otherwis e mild scattered colonic diverticulosis. There is no adjacent inflammatory change to suggest diverti culitis. No free intraperitoneal gas. The heart is normal in size. There are no pericardial or pl eural effusions. Basilar calcified granulomata. Severe lumbar levoscoliosis. Treated compression fr actures. Subacute right lower rib fractures. IMPRESSION: 1. Low density liquid stool, correlate for possible diarrhea or gastroenteritis. 2. Moderate sigmoid diverticulosis without adjacent fat stranding. 3. Subacute right lower rib fractures. Reviewed, dictated and finalized at location A. ECT BINDER OPERATOR IMPRESSION: 1. Low density liquid stool, correlate for possible diarrhea or gastroenteriti s. 2. Moderate sigmoid diverticulosis without adjacent fat stranding. 3. Subacute right lower rib fractures.
[2021-11-21 14:14] LABS: Estimated Glomerular Filt Rate > 60
== END 2021-11-21 13:42 | disposition home or self-care (01) ==
LOC: ANHIMG 13:45
PROVIDERS: PCP Family Medicine; Visit Provider Physician Assistant
DX: R10.32 Left lower quadrant pain (principal); S22.31XA Fracture of one rib, right side, initial encounter for closed fracture; K57.30 Diverticulosis of large intestine without perforation or abscess without bleeding
CPT/HCPCS: 74177; Q9967

== ENCOUNTER 2021-11-22 10:47 | Emergency (ER) | payer MEDICARE, SELFPAY ==
[2021-11-22] VITALS (19 sets, daily range): BP systolic 121–155; BP diastolic 61–81; PULSE 58–116; RESP 12–27; TEMP 36.6–37.4; O2SAT 98–100
--- NOTE | ~2021-11-22 | CT_ITS ---
EXAMINATION: CT abdomen pelvis w con DATE: 11/22/2021 13:18 INDICATION: Left lower quadrant abdominal pain. TECHNIQUE: Computed tomography (CT) of the abdomen and pelvis was performed with 100 mL Omnipaque 350 intravenous contrast. Automated exposure control and iterative reconstruction technique were employe d. The dose-length product was 364.00 mGy-cm. COMPARISON: CT abdomen and pelvis 11/21/2021 FINDINGS: The visualized portions of the lung bases demonstrates mild atelectasis. There is embolized bone cement in pulmonary arteries bilaterally. No pleural effusion. The heart size is normal. There are coronary artery calcifications. No pericardial effusion. The liver is normal. The gallbladder is distended, likely secondary to fasting. There is contrast in the gallbladder from the recent CT. Calc ifications in the spleen are consistent with old granulomatous disease. The pancreas and adrenal glan ds are normal. There is cortical thinning of the kidneys. There are cysts in the kidneys measuring up to 5.6 cm on the left. Uterine fibroids are noted. The endometrial complex is thickened to 12 mm. Th ere is diverticulosis of the colon without evidence of diverticulitis. The appendix is not visualized . There are no pathologically enlarged lymph nodes. There is no free intraperitoneal fluid. Epidural electrodes are noted. There is severe thoracolumbar spondylosis. There are changes of vertebroplasty in L1 and T9. Lumbar levoscoliosis is noted. There are healing right rib fractures. IMPRESSION: 1. Thickened endometrial complex, which may be seen with endometrial hyperplasia, polyp, and carcinom a. Pelvis ultrasound is recommended. Reviewed, dictated and finalized at location A. TABOUT PUSHER IMPRESSION: 1. Thickened endometrial complex, which may be seen with endometrial hyperplasi a, polyp, and carcinoma. Pelvis ultrasound is recommended.
--- NOTE | ~2021-11-22 | US_ITS ---
EXAMINATION: US pelvic complete DATE: 11/22/2021 14:57 INDICATION: Endometrial carcinoma Comparison:CT dated 11/22/2021 TECHNIQUE: Multiple transabdominal sonographic images of the pelvis performed. FINDINGS: The uterus measures 6 x 2.9 x 4.2 cm. There is endometrial thickening measuring 11 mm. Ther e is focal calcification in the endometrium measuring 1 cm. The endometrial complex measures 11 mm. The ovaries are not visualized. There is no free fluid in the pelvis. There are no abnormal masses seen on either side. IMPRESSION: 1. Thickened endomtrial complex. The differential diagnosis includes endometrial hyperplasia, polyp and carcinoma. Biopsy is recommended. Reviewed, dictated and finalized at location B. OW MAKER IMPRESSION: 1. Thickened endomtrial complex. The differential diagnosis includes endometri al hyperplasia, polyp and carcinoma. Biopsy is recommended.
[2021-11-22 12:35] LABS: Basophils Percent Auto 0.3 % (0.2-1.2); Hematocrit 37.8 % (37.0-47.0); Hemoglobin 12.7 g/dL (12.0-15.0); Immature Granulocyte Absolute 0.04 K/mm3 (0.00-0.031); Immature Granulocyte Percent A 0.4 % (0-0.5); Lymphocytes Absolute Auto 1.11 K/mm3 (0.9-3.2); Lymphocytes Percent Auto 10.4 % (18.3-44.2); Mean Corpuscular HGB Conc 33.6 g/dl (32-36); Mean Corpuscular Volume 89.4 fl (80-100); Mean Platelet Volume 10.5 fl (7.4-10.4); Monocytes Absolute Auto 0.5 K/mm3 (0.1-0.6); Neutrophils Percent Auto 83.9 % (45.5-73.1); Platelet Count Result 292 k/mm3 (150-375); Red Blood Count 4.23 M/mm3 (4.2-5.4); White Blood Count 10.7 K/mm3 (4.5-10.0)
[2021-11-22 12:48] LABS: Lactic Acid Reflex 1.9 mmol/L (0.7-2.1)
[2021-11-22 12:51] LABS: Alanine Aminotransferase 19 U/L (4-35); Albumin Level 4.8 g/dL (3.5-5.1); Alkaline Phosphatase 98 U/L (38-126); Anion Gap 11 mmol/L (8-16); Aspartate Amino Transferase 27 U/L (14-36); Bilirubin,Total 0.5 mg/dL (0.2-1.3); Blood Urea Nitrogen 19 mg/dL (7-17); Calcium 10.7 mg/dL (8.4-10.2); Carbon Dioxide 25 mmol/L (22-30); Chloride 101 mmol/L (98-107); Estimated CRCL calculation 41 ml/min; Estimated Glomerular Filt Rate > 60; Glucose 139 mg/dL (65-110); Lipase 36 U/L (23-300); Potassium 4.7 mmol/L (3.4-5.0); Sodium 137 mmol/L (137-145)
--- NOTE | 2021-11-22 12:53 | ED.ABDPAIN ---
HPI - Abdominal Pain General Chief Complaint: Abdominal Pain Stated Complaint: LL abd pain Time Seen by Provider: 11/22/21 12:07 Source: patient and RN notes reviewed Mode of arrival: ambulatory Limitations: no limitations History of Present Illness HPI narrative: Patient is 71 years old white female presented to the ED complaining of left abdominal pain started 4 days ago, constant, no aggravating or relieving factors, no fever, no chills, no nausea or vomiting, no diarrhea or constipation or urinary symptoms. History of appendectomy. Patient did not take her morphine today , CAT scan of the abdomen and pelvis yesterday showed 1. Low density liquid stool, correlate for possible diarrhea or gastroenteritis. 2. Moderate sigmoid diverticulosis without adjacent fat stranding. 3. Subacute right lower rib fractures. Related Data Home Medications Medication Instructions Recorded Confirmed multivitamin 1 tablet PO DAILY 10/12/19 11/21/21 cholecalciferol (vitamin D3) 100 2,000 unit PO DAILY cap 12/28/19 11/21/21 mcg (4,000 unit) capsule ferrous sulfate 325 mg (65 mg 325 mg PO DAILY 12/28/19 11/21/21 iron) tablet furosemide 20 mg tablet 20 mg PO QAM PRN tablet 12/28/19 11/21/21 morphine 30 mg tablet,extended 30 mg PO Q8H tablet 12/28/19 11/21/21 release vit C 250 mg-vit E 90 mg-zinc 40 1 tablet PO BID 04/12/20 11/21/21 mg-copper 1 [id number] capsule Allergies Allergy/AdvReac Type Severity Reaction Status Date / Time No Known Allergies Allergy Verified 11/22/21 12:09 Review of Systems Review of Systems: CONSTITUTIONAL: Denies fever, chills, or sweats. EYES: Denies visual changes, redness, or discharge. ENT: Denies rhinorrhea, congestion, sore throat, or otalgia. CARDIOVASCULAR: Denies chest pain, palpitations, or edema. RESPIRATORY: Denies cough or dyspnea. GASTROINTESTINAL: Denies abdominal pain, nausea, vomiting, or diarrhea. GENITOURINARY: Denies dysuria or hematuria. SKIN: Denies rash or itching. MUSCULOSKELETAL: Denies back pain, joint pain, or myalgia. NEUROLOGIC: Denies headache, numbness, or weakness. PSYCHIATRIC: Denies anxiety or depression. PMFSH Past Medical History Medical History (Updated 11/22/21 @ 15:21 by Augie Munguia MD) Anemia Arthritis Back pain BMI 25.0-25.9,adult Diabetes A1C = 5.9 (08/01/2019) Hepatitis HTN (hypertension) Shingles Surgical History Surgical History Fracture of greater tuberosity of left humerus ORIF March 2020 History of hernia repair (~05/30/15) History of hernia repair (~05/04/13) History of tonsillectomy and adenoidectomy Hx of appendectomy (~12/31/11) Family History Family History Grandparent Diabetes mellitus Father Acute myocardial infarction, Onset Age: 49 Sibling Malignant neoplasm of prostate Social History Social History Second hand tobacco smoke exposure: No Alcohol intake: never Exam Narrative: General appearance: Well-developed, well-nourished Skin: Normal color Head: Normocephalic, nontraumatic Eyes: Clear conjunctiva ENT: Oropharynx normal, ears normal, nose normal Neck: Supple, nontender Chest and respiratory: Airway patent, no respiratory distress, no accessory muscle use Heart: Regular rate/rhythm Abdomen: Soft, slight tenderness with deep palpation left abdomen. No guarding or rebound. No organomegaly, quiet bowel sounds Vascular: Normal peripheral pulses, normal capillary refill. Musculoskeletal: Normal range of motion, nontender back Neurologic: Alert and oriented ?3, CAN SLIDER is normal as tested, no gross motor deficit
[2021-11-22 12:58] LABS: Add Urine Microscopic? YES; Appearance Urine Clear (Clear); Bilirubin Urine Negative (Negative); Blood Urine Negative (Negative); Color Urine Yellow (Yellow); Glucose Urine UA Negative (Negative); Ketones Urine 1+ mg/dL (Negative); Leukocyte Esterase Ur Negative LEU/UL (Negative); Mucus Urine Rare /lpf; Nitrate Urine Negative (Negative); Protein Urine 2+ mg/dL (Negative); RBC Urine 0-2 /hpf (0-2); Squamous Epithelial Cell Urine Rare /hpf (Few); Urobilinogen Urine Negative mg/dL (<2.0); WBC Urine 0-3 /hpf
[2021-11-22 13:01] LABS: Specific Grav Ur 1.034 (1.001-1.035)
[2021-11-22] MEDS: SODIUM CHLORIDE 0.9% IV 1,000 ML 999 ML IV CONT (13:04)
[2021-11-22] MEDS: ONDANSETRON INJ 4 MG/2 ML VIAL IV PUSH (13:04)
[2021-11-22] MEDS: MORPHINE SULFATE (*CRX) 4 MG/ML INJ IV PUSH ×2 (13:04→13:38)
--- NOTE | 2021-11-22 13:11 | PC.NURSE ---
Pt off floor to CT scan
--- NOTE | 2021-11-22 13:34 | PC.NURSE ---
Spoke with patient, Pain remains 9/10 after 4 mg of morphine. Pt states she take 30 mg of morphine every 6 hours at home at baseline. MD aware, verbal order for an additional 4 mg of IV morphine.
--- NOTE | 2021-11-22 14:42 | PC.NURSE ---
Pt off floor to US.
== END 2021-11-22 16:30 | disposition home or self-care (01) ==
PROVIDERS: Emergency Medicine; Emergency Provider Emergency Medicine; PCP Family Medicine
DX: N85.01 Benign endometrial hyperplasia (principal); E83.52 Hypercalcemia; R10.32 Left lower quadrant pain; E11.9 Type 2 diabetes mellitus without complications; I10 Essential (primary) hypertension; M19.90 Unspecified osteoarthritis, unspecified site; Z86.2 Personal history of diseases of the blood and blood-forming organs and certain disorders involving the immune mechanism; K57.30 Diverticulosis of large intestine without perforation or abscess without bleeding; Z79.84 Long term (current) use of oral hypoglycemic drugs
CPT/HCPCS: 36415; 74177; 76856; 80053; 81001; 83605; 83690; 85025; 96361; 96374; 96375; 96376; 99284; J2270; J2405; J7030; Q9967

== ENCOUNTER → 2021-12-04 11:26 | Outpatient (CLI) | payer MEDICARE, SELFPAY ==
--- NOTE | ~2021-12-04 | XR_ITS ---
XR thoracic spine 2V DATE: 12/04/2021 11:56 INDICATION: Thoracic spine pain TECHNIQUE: AP, lateral, swimmer views COMPARISON: December 01, 2016 CT thoracic spine FINDINGS: Multilevel severe degenerative disc disease in the mid and lower cervical spine. Left cervical rib. Diffuse osteopenia. There is mild dextroscoliosis of the lower thoracic spine. Status post vertebroplasty at T8 and T12. No fracture of the remaining thoracic vertebrae. The thorac ic pedicles appear intact. No paraspinal soft tissue thickening. Thoracic spinal leads are noted overlying the lower thoracic spinal canal. IMPRESSION: Diffuse osteopenia Scoliosis Left cervical rib Status post vertebroplasty at T8 and T12 Reviewed, dictated and finalized at location A. OFIT INSTALLER
--- NOTE | ~2021-12-04 | XR_ITS ---
XR lumbar spine 2-3V DATE: 12/04/2021 11:56 INDICATION: Low back pain TECHNIQUE: COMPARISON: None FINDINGS: There is diffuse osteopenia. There is severe rotatory levoscoliosis measuring 49 degrees from L1 to L4. There is severe degenerative disc disease throughout the lumbar and lumbosacral spine. There is up to 12 mm leftward translation at L4-5. The sacroiliac joints are intact. Battery pack overlies the right iliac area with leads extending to the lower thoracic spine. Vertebroplasty at T8 and T12. IMPRESSION: Left 49 degrees rotatory levoscoliosis and severe degenerative disc disease of the lumbar spine, leftward translation at L4-5 Reviewed, dictated and finalized at location A. BERRY SORTER
== END ==
PROVIDERS: PCP Family Medicine; Visit Provider Nurse Practitioner Family
DX: M54.6 Pain in thoracic spine (principal); M54.50 Low back pain, unspecified; M85.88 Other specified disorders of bone density and structure, other site; M41.9 Scoliosis, unspecified
CPT/HCPCS: 72070; 72100

== ENCOUNTER 2022-04-24 13:36 | Emergency (ER) | payer MEDICARE, SELFPAY ==
[2022-04-24 13:45] VITALS: BP 139/76; PULSE 76; RESP 20; TEMP 37.4; O2SAT 100
--- NOTE | 2022-04-24 13:51 | ED.UPPEXIN ---
HPI - Extremity Injury (Upper) General Chief Complaint: Extremity Injury, Upper Stated Complaint: bruise on right arm Time Seen by Provider: 04/24/22 14:03 Source: patient and RN notes reviewed Mode of arrival: ambulatory Limitations: no limitations History of Present Illness HPI narrative: 71-year-old female presents with concern for bruise to her right upper arm. Reports 2 days ago she ran into a wall causing a large dark color lump. Reports the arm is not tender, reports there is no pain with movement. Reports she was concerned because of the lump. Reports it improved today and is not very tender. She denies any distal decree sensation, strength, range of motion. Reports she has been using an ice bag. MD complaint: injury to: right and arm Related Data Home Medications Medication Instructions Recorded Confirmed multivitamin (Daily Multi-Vitamin 1 tablet PO DAILY 10/12/19 03/05/22 tablet) cholecalciferol (vitamin D3) 100 2,000 unit PO DAILY 12/28/19 03/05/22 mcg (4,000 unit) capsule ferrous sulfate 325 mg (65 mg 325 mg PO DAILY 12/28/19 03/05/22 iron) tablet furosemide 20 mg tablet 20 mg PO QAM PRN Edema 12/28/19 03/05/22 morphine 30 mg tablet,extended 30 mg PO Q8H 12/28/19 03/05/22 release vit C 250 mg-vit E 90 mg-zinc 40 1 tablet PO BID 04/12/20 03/05/22 mg-copper 1 [id number]-cqxfbb capsule (PreserVision AREDS-2) Allergies Allergy/AdvReac Type Severity Reaction Status Date / Time No Known Allergies Allergy Verified 03/26/22 09:41 Review of Systems Review of Systems: CONSTITUTIONAL: Denies malaise, chills, sweats, or fever. SKIN: Denies rash or itching, open skin, laceration, abrasion, redness, warmth MUSCULOSKELETAL: Reports of bruise to the right upper arm NEUROLOGIC: Denies numbness, weakness All systems reviewed & are unremarkable except as noted in HPI and below PMFSH Past Medical History Medical History Anemia Arthritis Back pain BMI 25.0-25.9,adult Colon cancer screening Colon, diverticulosis Degenerative scoliosis Diabetes A1C = 5.9 (08/01/2019) Hepatitis HTN (hypertension) Shingles Surgical History Surgical History Fracture of greater tuberosity of left humerus ORIF March 2020 History of hernia repair (~05/30/15) History of hernia repair (~05/04/13) History of tonsillectomy and adenoidectomy Hx of appendectomy (~12/31/11) S/P shoulder surgery Family History Family History Grandparent Diabetes mellitus Father Acute myocardial infarction, Onset Age: 49 Sibling Malignant neoplasm of prostate Social History Social History Smoking status: Never smoker Second hand tobacco smoke exposure: No Alcohol intake: never Substance use: never Substance use type: does not use Spiritual care concerns: No Comments At time of signature, agree with nursing past medical, surgical, social and family history. There is no relevant family history pertinent to the presenting complaint Exam Narrative: GENERAL: Well-appearing, well-nourished, and in no acute distress. HEAD: Normocephalic, atraumatic. EYES: PERRLA, conjunctivae clear NECK: Supple. CHEST: Speaks in full sentences. No respiratory distress. HEART: Regular rate and rhythm. Normal and equal peripheral pulses. EXTREMITIES: Right arm has normal strength and sensation, grossly normal range of motion. No edema noted. Normal sensation with sensitivity to light touch and pain. No point tenderness. No open wounds, no skin tenting, no devitalized tissue or atrophy, no trophic changes, no obvious deformity, alignment normal, nearby joints and structures intact. Distal pulses palpable and equal bilaterally, skin warm, dry, pink. Capillary refill less than 3 seconds. SKIN: Warm, dry, no rash. Fla
== END 2022-04-24 14:15 | disposition home or self-care (01) ==
PROVIDERS: Emergency Provider Nurse Practitioner; PCP Physician Assistant
DX: S40.021A Contusion of right upper arm, initial encounter (principal); X58.XXXA Exposure to other specified factors, initial encounter; M19.90 Unspecified osteoarthritis, unspecified site; E11.9 Type 2 diabetes mellitus without complications; I10 Essential (primary) hypertension
CPT/HCPCS: 99212; G0463

== ENCOUNTER 2022-06-02 10:31 | Outpatient (CLI) | payer MEDICARE, SELFPAY ==
--- NOTE | ~2022-06-02 | US_ITS ---
EXAMINATION: US pelvic complete w TV DATE: 06/02/2022 11:44 INDICATION: Abnormal findings on prior ultrasound. Comparison:Ultrasound dated 11/22/2021 TECHNIQUE: Multiple transabdominal and endovaginal sonographic images of the pelvis performed. FINDINGS: The uterus measures 5 x 2.9 x 4 cm. The endometrial complex measures 3.7 mm. There is a sma ll mass of the endometrium measuring 1 cm, likely calcified uterine fibroid. The ovaries are not visualized. There is no free fluid in the pelvis. There are no abnormal masses seen on either side. IMPRESSION: 1. Echogenic 1 cm mass of the uterus, consistent with calcified fibroid. 2: Borderline sized postmenopausal endometrium measuring 3.7 mm. Reviewed, dictated and finalized at location A.
== END 2022-06-02 10:32 | disposition home or self-care (01) ==
PROVIDERS: PCP Physician Assistant; Visit Provider Obstetrics & Gynecology
DX: R93.89 Abnormal findings on diagnostic imaging of other specified body structures (principal)
CPT/HCPCS: 76830; 76856

== ENCOUNTER 2022-08-13 14:44 | Outpatient (CLI) | payer MEDICARE, SELFPAY ==
--- NOTE | 2022-08-13 15:09 | ECHO_ITS ---
Patient Info Name: Kate Mccormick Age: 72 years : 1950 Gender: Female Ht: 63 in Wt: 135 lbs BSA: 1.66 m2 HR: 85 bpm BP: 144 / 64 mmHg Heart Rhythm: Sinus Rhythm Technical Quality: Good Exam Date: 08/13/2022 3:31 PM Exam Location: [facility] Patient Status: Outpatient Admit Date: 08/13/2022 Staff Ordering Physician: Randi Kelley MD Document Manager: Opal Sesay RDCS Attending Provider: Randi Kelley MD Referring Physician: Warren GRESHAM; Exam Type: CA echo doppler color flow Study Info Indications R01.1 - Cardiac murmur, unspecified Complete two-dimensional, color flow and Doppler transthoracic echocardiogram is performed. Summary 1. Complete two-dimensional, color flow and Doppler transthoracic echocardiogram is performed. 2. Left ventricular chamber dimension is normal. 3. Left ventricular systolic function is normal, estimated at 55-60%. 4. The left ventricular diastolic function is grade I diastolic dysfunction. 5. E/e' 12 is mildly elevated. 6. Left atrial chamber dimension is mildly enlarged. 7. There is severe aortic valve sclerosis. 8. There is moderate aortic valve stenosis with a peak velocity of 254 cm/s, mean gradient of 16 mmHg, and aortic valve area of 1.4 cm2. 9. There is mild aortic valve regurgitation. 10. The mitral valve has moderately calcified annulus. 11. There is trace mitral valve regurgitation. 12. There is trace tricuspid valve regurgitation. 13. No pulmonary hypertension, estimated pulmonary arterial systolic pressure is 32 mmHg. Left Ventricle E/e' 12 is mildly elevated. Left ventricular chamber dimension is normal. Left ventricular systolic function is normal, estimated at 55-60%. The left ventricular diastolic function is grade I diastolic dysfunction. Right Ventricle Right ventricular chamber dimension is normal. Right ventricular systolic function is normal. Left Atria Left atrial chamber dimension is mildly enlarged. Right Atria Right atrial chamber dimension is normal. Aortic Valve The aortic valve is trileaflet. There is severe aortic valve sclerosis. There is moderate aortic valve stenosis with a peak velocity of 254 cm/s, mean gradient of 16 mmHg, and aortic valve area of 1.4 cm2. There is mild aortic valve regurgitation. Pulmonic Valve There is no pulmonic regurgitation. Mitral Valve The mitral valve has moderately calcified annulus. There is no mitral valve stenosis. There is trace mitral valve regurgitation. Tricuspid Valve There is trace tricuspid valve regurgitation. No pulmonary hypertension, estimated pulmonary arterial systolic pressure is 32 mmHg. Pericardium/Pleural There is no pericardial effusion. Inferior Vena Cava Normal inferior vena cava with >50% collapse upon inspiration consistent with normal right atrial pressure, 5 mmHg. Aorta The aortic root size at the sinus of Valsalva is normal. Left Ventricular Outflow Tract Name Value Normal LVOT 2D LVOT Diameter 2.0 cm LVOT Doppler LVOT Peak Gradient 4 mmHg LVOT Mean Gradient 3 mmH
== END 2022-08-13 14:45 | disposition home or self-care (01) ==
PROVIDERS: PCP Family Medicine; Visit Provider Family Medicine
DX: I35.1 Nonrheumatic aortic (valve) insufficiency (principal)
CPT/HCPCS: 93306

== ENCOUNTER 2022-10-09 11:15 | Outpatient (CLI) | payer MEDICARE, SELFPAY ==
--- NOTE | ~2022-10-09 | DEXA_ITS ---
Bone Density Report Name: JERROD HALEY Age: 72 Sex: Female Ethnicity: White Date of : 1950 Indication: postmenopausal; screening for osteoporosis; height loss; Referring Provider: NADIYA INGRAM Study: Bone densitometry was performed. Exam Date: October 09, 2022 Accession number: [id number] Bone Density: Region BMD T-score Z-score Classification AP Spine(L2, L3, L4) 1.153 0.7 3.1 Normal Femoral Neck (Left) 0.672 -1.6 0.4 Osteopenia Total Hip (Left) 0.786 -1.3 0.4 Osteopenia Femoral Neck (Right) 0.709 -1.3 0.7 Osteopenia Total Hip (Right) 0.740 -1.7 0.0 Osteopenia Total Hip Mean 0.763 -1.5 0.2 Osteopenia World Health Organization criteria for BMD impression classify patients as: Normal (T-score at or above -1.0), Osteopenia (T-score between -1.0 and -2.5), or Osteoporosis (T-score at or below -2.5). 10-year Fracture Risk(1): Major Osteoporotic Fracture 11% Hip Fracture 2.0% Reported Risk Factors: [place] (), Neck BMD=0.672, BMI=25.7 (1) FRAX(R) Version 3.08. Fracture probability calculated for an untreated patient. Fracture probability may be lower if the patient has received treatment. Clinical Information Provided by Patient: Has used the following medications: Vitamin D, Calcium Patient maximum height was 65 Menopause Age: 49 No regular weight bearing exercise Does not regularly consume dairy products Onset of menses at age 10 Number of children 2 Impression: The patient has low bone mass, based on the Right Total Hip T-score. The patient has an estimated ten-year risk of hip fracture of 2% and an estimated ten-year risk of major fracture of 11%, based on the WHO FRAX algorithm. Discussion: BONE DENSITY IS LOW AT ONE OR MORE SKELETAL SITES. This patient's lowest T-score is low at one or more skeletal sites. It meets the World Health Organization's (WHO) criteria for ?low bone mass? (T-score between -1.0 and -2.5). The patient's 10-year risk of fracture as calculated by FRAX is less than the threshold where pharmacological therapy is recommended by the National Osteoporosis Foundation (NOF). However, all treatment decisions require clinical judgment and consideration of individual patient factors, including patient preferences, comorbidities, previous drug use, risk factors not captured in the FRAX model (e.g., frailty, falls, vitamin D deficiency, increased bone turnover, interval significant decline in bone density) and possible under or overestimation of fracture risk by FRAX. The patient should follow a healthful lifestyle (good nutrition with adequate calcium and vitamin D, and appropriate weight-bearing exercise). Follow-Up: Consider repeating this study in 2 to 3 years to reassess this patient's status, or sooner if there is some new clinical indic
== END 2022-10-09 11:16 | disposition home or self-care (01) ==
PROVIDERS: PCP Family Medicine; Visit Provider Physician Assistant
DX: Z78.0 Asymptomatic menopausal state (principal); M85.852 Other specified disorders of bone density and structure, left thigh; M85.851 Other specified disorders of bone density and structure, right thigh
CPT/HCPCS: 77080

== ENCOUNTER 2024-03-17 11:05 | Emergency (ER) | payer MEDICARE, SELFPAY ==
--- NOTE | 2024-03-17 11:09 | ED.FEMALEGU ---
HPI - Female Genitourinary General Chief complaint: Urogenital-Female Stated complaint: PAINFUL URINATION Time Seen by Provider: 03/17/24 11:25 Source: patient, RN notes reviewed and old records reviewed Mode of arrival: ambulatory Limitations: no limitations History of Present Illness HPI Narrative: 73-year-old female presents to the [facility] with urinary symptoms Presents with . Patient is not a great historian, reports that there feels like there is pressure down there Reports lower abdominal discomfort Related Data Home Medications Medication Instructions Recorded Confirmed multivitamin (Daily Multi-Vitamin 1 tablet PO DAILY 10/12/19 03/17/24 tablet) ferrous sulfate 325 mg (65 mg 325 mg PO DAILY 12/28/19 03/17/24 iron) tablet morphine 30 mg tablet,extended 30 mg PO Q8H 12/28/19 03/17/24 release vit C 250 mg-vit E 90 mg-zinc 40 1 tablet PO BID 04/12/20 03/17/24 mg-copper 1 pq-bvxegh-zctvpq capsule (PreserVision AREDS-2) uggiwjl-ljagsnisg-bjiw 333 mg-133 1 tablet PO DAILY 12/10/22 03/17/24 mg-5 mg tablet cholecalciferol (vitamin D3) 50 50 mcg PO DAILY 12/10/22 03/17/24 mcg (2,000 unit) capsule magnesium oxide 400 mg PO TID 06/10/23 03/17/24 Allergies Allergy/AdvReac Type Severity Reaction Status Date / Time No Known Allergies Allergy Verified 03/17/24 11:14 Review of Systems Review of Systems: All systems reviewed & are unremarkable except as noted in HPI and below Constitutional: Constitutional: Reports no additional constitutional complaints Eyes: Eyes: Reports no additional eye complaints ENT: Reports system reviewed and no additional complaints, except as documented Cardiovascular: Cardiovascular: Reports no additional cardiovascular complaints, Denies chest pain and Denies dyspnea Respiratory: Respiratory: Reports no additional respiratory complaints, Denies chest congestion, Denies cough and Denies dyspnea Gastrointestinal: Gastrointestinal: Reports no additional gastrointestinal complaints, Denies abdominal pain, Denies nausea and Denies vomiting Genitourinary: Genitourinary: Reports as per HPI Musculoskeletal: Musculoskeletal: Reports no additional musculoskeletal complaints Integumentary/Breasts: Skin/Breast: Reports system reviewed and no additional complaints, except as docu Neurologic: Reports system reviewed and no additional complaints, except as documented Psychiatric: Psychiatric: Reports no additional psychiatric complaints Allergic/Immunologic: Allergic/Immunologic: Reports no additional allergic/immunologic complaints [facility] Past Medical History Medical History Abnormal finding on ultrasound 8.8.22 calcified fibroid/ borderline endometrium 3.7 mm Anemia Arthritis Back pain Colon, diverticulosis Degenerative scoliosis Hepatitis Shingles Surgical History Surgical History Fracture of greater tuberosity of left humerus ORIF March 2020 History of hernia repair (~05/30/15) History of hernia repair (~05/04/13) History of tonsillectomy and adenoidectomy Hx of appendectomy (~12/31/11) S/P shoulder surgery Family History Family History Grandparent Diabetes mellitus Father Acute myocardial infarction, Onset Age: 49 Sibling Malignant neoplasm of prostate Social History Social History Smoking status: Never smoker Second hand tobacco smoke exposure: No Alcohol intake: never Substance use: never Substance use type: does not use Lack of Transportation: No Lack of Food: Never True Current Housing: I Have Housing Concerned About Future Housing: No Difficulty Paying Gas/Electric Bills: No Difficulty Paying for Meds: No Currently Unemployed: No Education: High School Diploma/GED [facility]
[2024-03-17 11:19] VITALS: BP 119/97; PULSE 83; RESP 14; TEMP 37.3; O2SAT 100
== END 2024-03-17 11:46 | disposition home or self-care (01) ==
PROVIDERS: Emergency Provider Nurse Practitioner; PCP Family Medicine
DX: N39.0 Urinary tract infection, site not specified (principal); M19.90 Unspecified osteoarthritis, unspecified site
CPT/HCPCS: 81003; 87086; 87088; 99213; G0463

== ENCOUNTER 2024-05-05 08:45 | Outpatient (CLI) | payer MEDICARE, SELFPAY ==
[2024-05-05 10:29] LABS: Basophils Absolute Auto 0.1 K/mm3 (0.0-0.1); Basophils Percent Auto 0.7 % (0.2-1.2); Eosinophils Absolute Auto 0.2 K/mm3 (0-0.3); Eosinophils Percent Auto 2.8 % (0-4.4); Hematocrit 37.4 % (37.0-47.0); Immature Granulocyte Absolute 0.02 K/mm3 (0.00-0.031); Immature Granulocyte Percent A 0.2 % (0-0.5); Lymphocytes Percent Auto 18.6 % (18.3-44.2); Mean Corpuscular HGB Conc 32.1 g/dl (32-36); Mean Corpuscular Hemoglobin 30.8 pg (26-34); Mean Corpuscular Volume 95.9 fl (80-100); Mean Platelet Volume 11.2 fl (7.4-10.4); Monocytes Absolute Auto 0.8 K/mm3 (0.1-0.6); Monocytes Percent Auto 9.5 % (2.6-8.5); Neutrophils Absolute Auto 5.5 K/mm3 (1.3-6.7); Neutrophils Percent Auto 68.2 % (45.5-73.1); Platelet Count Result 243 k/mm3 (150-375); Red Cell Distribution Width 13.4 % (11.5-14.5); White Blood Count 8.1 K/mm3 (4.5-10.0)
[2024-05-05 10:48] LABS: Alanine Aminotransferase 18 U/L (6-35); Albumin Level 4.5 g/dL (3.5-5.1); Alkaline Phosphatase 98 U/L (38-126); Anion Gap 11 mmol/L (4-12); Aspartate Amino Transferase 48 U/L (14-36); Bilirubin,Total 0.6 mg/dL (0.2-1.3); Blood Urea Nitrogen 25 mg/dL (7-17); Calcium 9.9 mg/dL (8.4-10.2); Carbon Dioxide 27 mmol/L (22-30); Chloride 102 mmol/L (98-107); Cholesterol 153 mg/dL (0-200); Estimated Glomerular Filt Rate 54; Glucose 90 mg/dL (65-110); HDL Direct 69 mg/dL; Potassium 3.8 mmol/L (3.4-5.0); Sodium 140 mmol/L (137-145); Triglycerides 156 mg/dL (<150)
[2024-05-05 10:59] LABS: LDL Cholesterol Direct 58 mg/dL
== END 2024-05-05 08:46 | disposition home or self-care (01) ==
PROVIDERS: PCP Family Medicine; Visit Provider Physician Assistant
DX: E78.2 Mixed hyperlipidemia (principal); Z79.899 Other long term (current) drug therapy; N32.81 Overactive bladder; I12.9 Hypertensive chronic kidney disease with stage 1 through stage 4 chronic kidney disease, or unspecified chronic kidney disease; N18.30 Chronic kidney disease, stage 3 unspecified
CPT/HCPCS: 36415; 80053; 80061; 83036; 84443; 85025

== ENCOUNTER 2024-06-13 10:58 | Emergency (ER) | payer MEDICARE, SELFPAY ==
--- NOTE | 2024-06-13 11:01 | ED.NAVMDI ---
HPI - Nausea/Vomiting/Diarrhea General Chief complaint: Nausea/Vomiting/Diarrhea Stated complaint: Diarrhea/Fever Time Seen by Provider: 06/13/24 11:00 Source: patient Mode of arrival: ambulatory Limitations: no limitations History of Present Illness HPI Narrative: Kate is a 73 year old female patient presenting to the clinic today with c/o nausea, vomiting, diarrhea, abdominal cramping/pain, and weakness. Unable to rate her pain at this time. She reports symptoms started around noon yesterday. Started with decreased appetite-nausea. Has been reports that they did a at home COVID test yesterday and it was negative. She states that she has vomited and had diarrhea several times since yesterday. Anything she drinks or eats- she vomits. is concerned about dehydration. Related Data Home Medications Medication Instructions Recorded Confirmed multivitamin (Daily Multi-Vitamin 1 tablet PO DAILY 10/12/19 06/13/24 tablet) ferrous sulfate 325 mg (65 mg 325 mg PO DAILY 12/28/19 06/13/24 iron) tablet morphine 30 mg tablet,extended 30 mg PO Q8H 12/28/19 06/13/24 release vit C 250 mg-vit E 90 mg-zinc 40 1 tablet PO BID 04/12/20 06/13/24 mg-copper 1 ti-jvfofi-qphvhx capsule (PreserVision AREDS-2) ricfigb-yovcuubfa-aqha 333 mg-133 1 tablet PO DAILY 12/10/22 06/13/24 mg-5 mg tablet cholecalciferol (vitamin D3) 50 50 mcg PO DAILY 12/10/22 06/13/24 mcg (2,000 unit) capsule magnesium oxide 400 mg PO TID 06/10/23 06/13/24 Allergies Allergy/AdvReac Type Severity Reaction Status Date / Time No Known Allergies Allergy Verified 06/13/24 11:14 Review of Systems Review of Systems: Pertinent positives per HPI. Patient denies any fever, chills, rash, headache, visual changes, dizziness, cough, runny nose, sore throat, shortness of breath, chest pain, palpitations, constipation, or any urinary issues. PMF Past Medical History Medical History Abnormal finding on ultrasound 8.8.22 calcified fibroid/ borderline endometrium 3.7 mm Anemia Arthritis Back pain Colon, diverticulosis Degenerative scoliosis Hepatitis Shingles Surgical History Surgical History Fracture of greater tuberosity of left humerus ORIF March 2020 History of hernia repair (~05/30/15) History of hernia repair (~05/04/13) History of tonsillectomy and adenoidectomy Hx of appendectomy (~12/31/11) S/P shoulder surgery Family History Family History Grandparent Diabetes mellitus Father Acute myocardial infarction, Onset Age: 49 Sibling Malignant neoplasm of prostate Social History Social History Smoking status: Never smoker Second hand tobacco smoke exposure: No Alcohol intake: never Substance use: never Substance use type: does not use Lack of Transportation: No Lack of Food: Never True Current Housing: I Have Housing Concerned About Future Housing: No Difficulty Paying Gas/Electric Bills: No Difficulty Paying for Meds: No Currently Unemployed: No Education: High School Diploma/GED Living arrangements: with family Spiritual care concerns: No Comments At the time of my signature, I reviewed and agree with the nursing past medical, surgical, social, and family history. There is no relevant family history pertinent to the patient complaint. Exam Narrative: General: Well-developed, well nourished, acute ill-appearing, pale appearing Head: Normocephalic, atraumatic. Cardio: Regular rate and rhythm, s1 and s2 normal, no murmur appreciated. Resp: Clear to auscultation bilaterally, no rhonchi, rales, wheezing or rubs. Abdomen: Soft, pliable, bowel sounds present in all quadrants, generalized abdomen tenderness greater in bilateral lower abdomen, no org
[2024-06-13 11:09] VITALS: BP 149/99; PULSE 92; RESP 15; TEMP 36.8; O2SAT 100
== END 2024-06-13 11:17 | disposition short-term general hospital (02) ==
PROVIDERS: Emergency Provider Nurse Practitioner Family; PCP Family Medicine
DX: E86.0 Dehydration (principal); R11.2 Nausea with vomiting, unspecified; R19.7 Diarrhea, unspecified; M19.90 Unspecified osteoarthritis, unspecified site; D64.9 Anemia, unspecified
CPT/HCPCS: 99212; G0463

== ENCOUNTER 2024-06-13 11:42 | Emergency (ER) | payer MEDICARE, SELFPAY ==
--- NOTE | ~2024-06-13 | CT_ITS ---
EXAMINATION: CT abdomen pelvis w con DATE: 06/13/2024 14:24 INDICATION: Abdominal pain. Nausea, vomiting, and diarrhea. TECHNIQUE: Computed tomography (CT) of the abdomen and pelvis was performed with 100 mL Omnipaque 350 intravenous contrast. Automated exposure control and iterative reconstruction technique were employe d. The dose-length product was 287.43 mGy-cm. COMPARISON: CT abdomen pelvis 11/22/2021 FINDINGS: The visualized portions of the lung bases demonstrate mild atelectasis. Calcified pulmonary nodules are consistent with old granulomatous disease. No pleural effusion. Cardiomegaly is noted. T here are calcifications of the aortic valve. There are coronary artery calcifications. No pericardial effusion. There is a 5 mm cyst in the liver. Calcifications in the spleen are consistent with old gr anulomatous disease. The gallbladder, pancreas, and adrenal glands are normal. There are cysts in the kidneys measuring up to 5.9 cm on the left. There is cortical thinning of the kidneys. There are sma ll calcified fibroids in the uterus. There is a pessary in the vagina. There is diverticulosis of the colon without evidence of diverticulitis. There are no dilated loops of bowel. The appendix is not v isualized. There is calcified atherosclerosis of the aorta and many of the other arteries. There are no pathologically enlarged lymph nodes. There is no free intraperitoneal fluid. Epidural electrodes a re noted. There is lumbar levoscoliosis and severe spondylosis. There are changes of vertebroplasty a t T12 and T8. IMPRESSION: 1. No etiology for the patient's symptoms. Reviewed, dictated and finalized at location A.
[2024-06-13 12:02] VITALS: BP 119/105; PULSE 94; RESP 22; TEMP 36.6; O2SAT 100
[2024-06-13 13:06] VITALS: BP 160/85; PULSE 91; RESP 18; O2SAT 100
[2024-06-13 13:27] LABS: Basophils Percent Auto 0.1 % (0.2-1.2); Hematocrit 40.1 % (37.0-47.0); Hemoglobin 13.7 g/dL (12.0-15.0); Immature Granulocyte Absolute 0.08 K/mm3 (0.00-0.031); Immature Granulocyte Percent A 0.5 % (0-0.5); Lymphocytes Absolute Auto 0.74 K/mm3 (0.9-3.2); Mean Corpuscular HGB Conc 34.2 g/dl (32-36); Mean Corpuscular Volume 90.7 fl (80-100); Mean Platelet Volume 10.4 fl (7.4-10.4); Monocytes Absolute Auto 1.1 K/mm3 (0.1-0.6); Monocytes Percent Auto 7.3 % (2.6-8.5); Neutrophils Absolute Auto 12.9 K/mm3 (1.3-6.7); Neutrophils Percent Auto 87.1 % (45.5-73.1); Platelet Count Result 353 k/mm3 (150-375); Red Blood Count 4.42 M/mm3 (4.2-5.4); Red Cell Distribution Width 12.9 % (11.5-14.5); White Blood Count 14.8 K/mm3 (4.5-10.0)
[2024-06-13] MEDS: SODIUM CHLORIDE 0.9% IV 1,000 ML 999 ML IV CONT (13:27)
[2024-06-13] MEDS: MORPHINE SULFATE (*CRX) 4 MG/ML INJ 2 MG IV PUSH (13:27)
[2024-06-13] MEDS: ONDANSETRON INJ 4 MG/2 ML VIAL IV PUSH (13:27)
--- NOTE | 2024-06-13 13:35 | ED.GENADULT ---
HPI - General Adult General Chief complaint: Abdominal Pain Stated complaint: abd pain, n/v Time Seen by Provider: 06/13/24 13:09 History of Present Illness HPI narrative: Patient 73-year-old female who presents emergency department with chief complaint of abdominal pain patient reports that yesterday she started having abdominal discomfort reports that it is generalized and reports there is nonlocalizing position patient presumably get comfortable reports she started having diarrhea and had nausea and vomiting. Patient reports that she was seen in urgent care and told to come the emergency department for evaluation. Patient did a home COVID test that was negative. Related Data Home Medications Medication Instructions Recorded Confirmed multivitamin (Daily Multi-Vitamin 1 tablet PO DAILY 10/12/19 06/13/24 tablet) ferrous sulfate 325 mg (65 mg 325 mg PO DAILY 12/28/19 06/13/24 iron) tablet morphine 30 mg tablet,extended 30 mg PO Q8H 12/28/19 06/13/24 release vit C 250 mg-vit E 90 mg-zinc 40 1 tablet PO BID 04/12/20 06/13/24 mg-copper 1 dr-lsrfrc-mxnhtd capsule (PreserVision AREDS-2) igjxzfd-lubyrcrtu-wkxj 333 mg-133 1 tablet PO DAILY 12/10/22 06/13/24 mg-5 mg tablet cholecalciferol (vitamin D3) 50 50 mcg PO DAILY 12/10/22 06/13/24 mcg (2,000 unit) capsule magnesium oxide 400 mg PO TID 06/10/23 06/13/24 Allergies Allergy/AdvReac Type Severity Reaction Status Date / Time No Known Allergies Allergy Verified 06/13/24 11:14 Review of Systems Review of Systems: A 10 system review of systems was completed on the patient and is negative except for what is stated in the HPI. Nursing and ancillary documentation was reviewed. [facility] Past Medical History Medical History Abnormal finding on ultrasound 8.8.22 calcified fibroid/ borderline endometrium 3.7 mm Anemia Arthritis Back pain Colon, diverticulosis Degenerative scoliosis Hepatitis Shingles Surgical History Surgical History Fracture of greater tuberosity of left humerus ORIF March 2020 History of hernia repair (~05/30/15) History of hernia repair (~05/04/13) History of tonsillectomy and adenoidectomy Hx of appendectomy (~12/31/11) S/P shoulder surgery Family History Family History Grandparent Diabetes mellitus Father Acute myocardial infarction, Onset Age: 49 Sibling Malignant neoplasm of prostate Social History Social History Smoking status: Never smoker Second hand tobacco smoke exposure: No Alcohol intake: never Substance use: never Substance use type: does not use Lack of Transportation: No Lack of Food: Never True Current Housing: I Have Housing Concerned About Future Housing: No Difficulty Paying Gas/Electric Bills: No Difficulty Paying for Meds: No Currently Unemployed: No Education: High School Diploma/GED Living arrangements: with family Spiritual care concerns: No Exam Narrative: GENERAL: Well-appearing, well-nourished, and in no acute distress. HEAD: Normocephalic, atraumatic. EYES: PERRLA and EOMI. ENT: Nares clear, no rhinorrhea or epistaxis. Mucous membranes moist. NECK: Supple. CHEST: Clear to auscultation. No respiratory distress. HEART: Regular rate and rhythm. No murmur heard. Normal peripheral pulses. ABDOMEN: Soft, diffusely tender to palpation, nondistended, normal active bowel sounds. EXTREMITIES: Normal range of motion. No edema. SKIN: Warm, dry, no rash. NEURO: No focal deficits. Alert and oriented x3. PSYCH: Normal mood and affect. Course Vital Signs Vital signs: Vital Signs Temperature 36.6 C 06/13/24 12:02 Pulse Rate 94 06/13/24 12:02 Respiratory Rate 22 H 06/13/24 12:02 Blood
[2024-06-13 13:57] LABS: Lactic Acid Reflex 1.5 mmol/L (0.7-2.0)
[2024-06-13 13:58] LABS: Alanine Aminotransferase 20 U/L (6-35); Albumin Level 4.9 g/dL (3.5-5.1); Alkaline Phosphatase 106 U/L (38-126); Anion Gap 19 mmol/L (4-12); Aspartate Amino Transferase 32 U/L (14-36); Bilirubin,Total 0.8 mg/dL (0.2-1.3); Blood Urea Nitrogen 24 mg/dL (7-17); Calcium 10.9 mg/dL (8.4-10.2); Carbon Dioxide 23 mmol/L (22-30); Chloride 97 mmol/L (98-107); Estimated CRCL calculation 36 ml/min; Estimated Glomerular Filt Rate 54; Glucose 171 mg/dL (65-110); Lipase 182 U/L (23-300); Potassium 3.1 mmol/L (3.4-5.0); Sodium 139 mmol/L (137-145)
[2024-06-13 14:27] VITALS: BP 153/77; PULSE 78; RESP 14; TEMP 36.7; O2SAT 99
--- NOTE | 2024-06-13 14:48 | PC.NURSE ---
Pt attempted to give urine sample but specimen was mixed with stool.
[2024-06-13 15:28] LABS: Add Urine Microscopic? YES; Appearance Urine Clear (Clear); Bacteria Urine None Seen /hpf; Bilirubin Urine Negative (Negative); Blood Urine Trace (Negative); Color Urine Yellow (Yellow); Glucose Urine UA Negative (Negative); Ketones Urine 1+ mg/dL (Negative); Leukocyte Esterase Ur Negative LEU/UL (Negative); Nitrate Urine Negative (Negative); Protein Urine 2+ mg/dL (Negative); RBC Urine 0-2 /hpf (0-2); Squamous Epithelial Cell Urine None Seen /hpf (Few); Urobilinogen Urine 0.2 mg/dL (<2.0); WBC Urine 0-5 /hpf (0-3)
[2024-06-13 16:31] VITALS: BP 136/76; PULSE 86; RESP 18; TEMP 36.6; O2SAT 96
== END 2024-06-13 16:32 | disposition home or self-care (01) ==
PROVIDERS: Student in an Organized Health Care Education/Training Program; Emergency Provider Emergency Medicine; PCP Family Medicine
DX: K52.9 Noninfective gastroenteritis and colitis, unspecified (principal); D64.9 Anemia, unspecified; M19.90 Unspecified osteoarthritis, unspecified site
CPT/HCPCS: 36415; 74177; 80053; 81001; 83605; 83690; 85025; 96361; 96374; 96375; 99284; J2270; J2405; J7030; Q9967

== ENCOUNTER 2024-06-15 17:31 | Inpatient (IN) | payer MEDICARE, SELFPAY ==
[2024-06-15] VITALS (7 sets, daily range): BP systolic 148–181; BP diastolic 62–77; PULSE 61–66; RESP 15–23; TEMP 36.4–36.7; O2SAT 97–99; BMI 23.0; BMI 20.9
--- NOTE | ~2024-06-15 | XR_ITS ---
EXAMINATION: XR chest 1V portable Exam Date/Time: 06/19/2024 14:40 CDT HISTORY: productive cough- r/o aspiration penumonia Comparison: 06/15/2024. RESULT: Lines, tubes, and devices: Leads project over the lower thoracic spine. Multilevel vertebral plasty cement. Lungs and pleura: New segmental left basilar opacity. Mild left costophrenic angle blunting. Chronic diffuse methylmethacrylate embolization in the lungs. Cardiomediastinal silhouette: Stable. Other: No acute osseous or upper abdominal finding. IMPRESSION: Left basilar atelectasis/consolidation. Small left pleural effusion. Reviewed, dictated and finalized at location K.
--- NOTE | ~2024-06-15 | CT_ITS ---
EXAMINATION: CT abdomen pelvis w con DATE: 06/15/2024 21:11 INDICATION: Abdominal pain, nausea, vomiting and diarrhea TECHNIQUE: Computed tomography (CT) of the abdomen and pelvis was performed with 100 mL Omnipaque-350 intravenous contrast. Automated exposure control and iterative reconstruction technique were employe d. The dose-length product was 236.39 mGy-cm. COMPARISON: 06/13/2024 FINDINGS: Mild dependent atelectasis in the bilateral lower lobes. Scattered small foci of embolized methyl met hacrylate in the subsegmental pulmonary arteries in the bilateral lower lungs. Heart size normal. Ath erosclerotic coronary artery calcification. Aortic valve catheter station. No pericardial or pleural effusion. Liver, gallbladder, pancreas and bilateral adrenal glands are normal. Scattered splenic jamie iccation consistent with old granulomatous disease. There are bilateral renal cysts the largest mixed lytic cyst arising from the lower pole of the left kidney which measures 6 cm in maximal diameter. S cattered cortical scarring of the bilateral kidneys. There is moderate scattered colonic diverticulos is without adjacent inflammatory change to suggest diverticulitis. No bowel obstruction. There is sug gestion of mild wall thickening throughout the colon, most prominent in the proximal colon where ther e appears be some surrounding hyperemia of the vasa recta suspicious for colitis. The appendix is not visualized. No pericecal inflammatory change to suggest acute appendicitis. Bladder is normal. Calci fied degenerated uterine fibroids. Pessary within the vaginal vault. No free intraperitoneal gas or f luid. No pathologically enlarged abdominal or pelvic lymphadenopathy. Lumbar levoscoliosis with sever e spondylosis. T8 and T9 vertebroplasties. Spinal stimulator in the subcutaneous tissues at the right buttock with leads extending cephalad along the posterior aspect of the thoracic central canal. IMPRESSION: 1. Mild colonic wall thickening most prominent in the proximal colon where there is hyperemia of the vasa recta suspicious for colitis which could be infectious or inflammatory in etiology. Reviewed, dictated and finalized at location A. IMPRESSION: 1. Mild colonic wall thickening most prominent in the proximal colon where ther e is hyperemia of the vasa recta suspicious for colitis which could be infectio us or inflammatory in etiology.
--- NOTE | ~2024-06-15 | CT_ITS ---
EXAMINATION: CT brain wo con DATE: 06/15/2024 18:57 INDICATION: Altered mental status. TECHNIQUE: Computed tomography (CT) of the head was performed without intravenous contrast. Sagittal and coronal reconstructions were performed. The mA was adjusted according to patient size. Iterative reconstruction technique was employed. The dose-length product was 605.33 mGy-cm. COMPARISON: None FINDINGS: Left thalamic small lacunar infarct. No acute intracranial hemorrhage, acute infarction or abnormal e xtra axial fluid collection. There is mild scattered white matter hypoattenuation consistent with chr onic small vessel ischemic disease. Ventricles are normal and symmetric. No mass/mass effect. Intracr anial calcified cerebral atherosclerosis is noted. The orbits, paranasal sinuses and mastoid air cell s are normal. IMPRESSION: 1. Small old lacunar infarct at the left thalamus and mild scattered white matter hypoattenuation con sistent with chronic small vessel ischemic disease. No acute intracranial process. Reviewed, dictated and finalized at location A. IMPRESSION: 1. Small old lacunar infarct at the left thalamus and mild scattered white young er hypoattenuation consistent with chronic small vessel ischemic disease. No ac [place] intracranial process.
--- NOTE | ~2024-06-15 | CT_ITS ---
EXAMINATION: CT brain wo con DATE: 06/19/2024 15:13 INDICATION: drowsiness, lethargy . TECHNIQUE: Computed tomography (CT) of the head was performed without intravenous contrast. The mA wa s adjusted according to patient size. Iterative reconstruction technique was employed. The dose-lengt h product was 529.67 mGy-cm. COMPARISON: 06/15/2024. FINDINGS: No acute intracranial hemorrhage or extra-axial fluid collection. No hydrocephalus, mass, or herniation. No acute ischemic infarct. Unremarkable dural venous sinus attenuation. No acute osseous abnormality. The aerated spaces are clear. Mild atrophy and chronic white matter change. Atherosclerotic intracranial calcification. Focal old l acunar infarcts noted in the bilateral posterior internal capsules and left thalamus. IMPRESSION: No acute intracranial process. Reviewed, dictated and finalized at location K.
--- NOTE | ~2024-06-15 | XR_ITS ---
EXAMINATION: XR chest 1V portable DATE: 06/15/2024 18:44 INDICATION: Altered mental status TECHNIQUE: frontal view of the chest was obtained. COMPARISON: Chest radiograph dated 12/31/[address] abdomen and pelvis dated 06/13/2024 FINDINGS: There are numerous small linear and branching densities scattered throughout both lungs consistent wi th embolized methyl methacrylate like related to prior T8 and T12 vertebral plasties. No other air sp katie opacities, pulmonary edema, pleural effusion or pneumothorax. Cardiomegaly. Spinal stimulator dc ds project over the central canal of the lower thoracic spine with distal lead tips at the level of T 6-T7 and T7-T8. IMPRESSION: 1. Extensive scattered pulmonary arterial embolized methylmethacrylate. No acute cardiopulmonary dise ase. Reviewed, dictated and finalized at location A. IMPRESSION: 1. Extensive scattered pulmonary arterial embolized methylmethacrylate. No acut e cardiopulmonary disease.
--- NOTE | 2024-06-15 17:51 | ECG_ITS ---
Test Date: 2024-06-15 18:06:08 Measurements Intervals Percival Rate: 59 P: -68 TX: 129 QRS: -32 QRSD: 94 T: -5 QT: 432 QTc: 430 Interpretive Statements SINUS BRADYCARDIA MARKED LEFT AXIS DEVIATION [QRS AXIS < -30] No previous ECG available for comparison Electronically Signed On 06-16-2024 14:38:27 CDT by Cecilia Reyes M.D.
[2024-06-15 18:03] LABS: Hemoglobin 12.5 g/dL (12.0-15.0); Mean Corpuscular HGB Conc 32.9 g/dl (32-36); Mean Corpuscular Hemoglobin 30.5 pg (26-34); Mean Corpuscular Volume 92.7 fl (80-100); Red Cell Distribution Width 12.7 % (11.5-14.5); White Blood Count 16.6 K/mm3 (4.5-10.0)
[2024-06-15 18:04] LABS: Basophils Percent Auto 0.1 % (0.2-1.2); Immature Granulocyte Absolute 0.09 K/mm3 (0.00-0.031); Immature Granulocyte Percent A 0.5 % (0-0.5); Lymphocytes Absolute Auto 1.42 K/mm3 (0.9-3.2); Lymphocytes Percent Auto 8.5 % (18.3-44.2); Mean Platelet Volume 10.7 fl (7.4-10.4); Monocytes Absolute Auto 1.6 K/mm3 (0.1-0.6); Monocytes Percent Auto 9.7 % (2.6-8.5); Neutrophils Absolute Auto 13.5 K/mm3 (1.3-6.7); Neutrophils Percent Auto 81.2 % (45.5-73.1); Platelet Count Result 307 k/mm3 (150-375)
[2024-06-15 18:15] LABS: INR 1.1; Prothrombin Time 14.9 Seconds (11.1-14.7)
[2024-06-15 18:16] LABS: Add Urine Microscopic? YES; Alanine Aminotransferase 30 U/L (6-35); Albumin Level 4.2 g/dL (3.5-5.1); Alkaline Phosphatase 79 U/L (38-126); Anion Gap 11 mmol/L (4-12); Appearance Urine Clear (Clear); Aspartate Amino Transferase 38 U/L (14-36); Bacteria Urine None Seen /hpf; Bilirubin Urine Negative (Negative); Bilirubin,Total 0.6 mg/dL (0.2-1.3); Blood Urea Nitrogen 31 mg/dL (7-17); Blood Urine Trace (Negative); Carbon Dioxide 28 mmol/L (22-30); Chloride 99 mmol/L (98-107); Color Urine Yellow (Yellow); Estimated CRCL calculation 37 ml/min; Estimated Glomerular Filt Rate 49; Glucose 117 mg/dL (65-110); Glucose Urine UA Negative (Negative); Ketones Urine 1+ mg/dL (Negative); Leukocyte Esterase Ur Trace LEU/UL (Negative); Need Manual Microscopic Reviewed; Nitrate Urine Positive (Negative); Non Pathogenic Casts 0-2; Partial Thromboplastin Time 28.4 Seconds (22.3-36.8); Potassium 3.2 mmol/L (3.4-5.0); Protein Urine 2+ mg/dL (Negative); RBC Urine 0-2 /hpf (0-2); Sodium 138 mmol/L (137-145); Specific Grav Ur 1.024 (1.001-1.035); Squamous Epithelial Cell Urine None Seen /hpf (Few); Urobilinogen Urine 0.2 mg/dL (<2.0); pH Urine 5.5 (5.0-9.0)
[2024-06-15] MEDS: MORPHINE SULFATE (*CRX) 2 MG/ML INJ IV PUSH (18:32)
[2024-06-15] MEDS: ONDANSETRON INJ 4 MG/2 ML VIAL IV PUSH (18:33)
[2024-06-15] MEDS: SODIUM CHLORIDE 0.9% IV 1,000 ML 999 ML IV CONT (18:33)
[2024-06-15 18:52] LABS: Lactic Acid Reflex 0.9 mmol/L (0.7-2.0)
[2024-06-15 19:05] LABS: Troponin I 0.013 ng/mL (0.000-0.034)
[2024-06-15 19:24] LABS: Thyroid Stimulating Hormone 0.684 uIU/mL (0.465-4.680)
[2024-06-15 19:25] LABS: Creatine Kinase 190 U/L (30-135)
[2024-06-15 19:54] LABS: Influenza A QL RT-PCR Negative (Negative); Influenza B QL RT-PCR Negative (Negative); RSV RNA, RT-PCR Negative (Negative); SARS-CoV-2 RNA PCR Negative (Negative)
--- NOTE | 2024-06-15 20:09 | ED.AMS ---
HPI - Altered Mental Status General Chief Complaint: Altered Mental Status Stated Complaint: AMS Time Seen by Provider: 06/15/24 18:11 History of Present Illness HPI narrative: 73-year-old female with history of hypertension, aortic stenosis, aortic regurgitation, CKD stage 3, diabetes, PAD presents to the emergency department via EMS from home with her family at bedside for nausea and vomiting, diarrhea and altered mental status. Patient's at bedside provides the following history. States the patient was slightly confused starting 3 days ago and had associated nausea vomiting. she was seen in our emergency department on 06/13/2024 and was diagnosed with get viral gastroenteritis after having a negative CT and lab work. She was discharged home. Family states that patient has significantly worsened has been not able to keep down food and fluids and has become more altered. States she is normally A&O x4 but has been AL x3 today. She is responsive to verbal stimuli. States she has had copious amounts of diarrhea. They deny recent antibiotic use, surgeries or hospitalizations. Denies known fever, cough or congestion, chest pain or shortness of breath. When I asked her if anything hurts she points to her abdomen. Related Data Home Medications Medication Instructions Recorded Confirmed multivitamin (Daily Multi-Vitamin 1 tablet PO DAILY 10/12/19 06/15/24 tablet) ferrous sulfate 325 mg (65 mg 325 mg PO DAILY 12/28/19 06/15/24 iron) tablet morphine 30 mg tablet,extended 30 mg PO Q8H 12/28/19 06/15/24 release vit C 250 mg-vit E 90 mg-zinc 40 1 tablet PO BID 04/12/20 06/15/24 mg-copper 1 fb-iniher-mpkgne capsule (PreserVision AREDS-2) fkebsbi-bquytfeho-kwhy 333 mg-133 1 tablet PO DAILY 12/10/22 06/15/24 mg-5 mg tablet cholecalciferol (vitamin D3) 50 50 mcg PO DAILY 12/10/22 06/15/24 mcg (2,000 unit) capsule magnesium oxide 400 mg PO TID 06/10/23 06/15/24 amlodipine 5 mg tablet 5 mg PO DAILY 06/15/24 06/15/24 atorvastatin 10 mg tablet 10 mg PO DAILY 06/15/24 06/15/24 gabapentin 300 mg capsule 300 mg PO DAILY 06/15/24 06/15/24 hydrochlorothiazide 12.5 mg capsule 12.5 mg PO DAILY 06/15/24 06/15/24 lisinopril 40 mg tablet 40 mg PO DAILY 06/15/24 06/15/24 metformin 500 mg tablet,extended 1,000 mg PO QPM 06/15/24 06/15/24 release 24 hr oxybutynin chloride 10 mg 10 mg PO DAILY PRN Overactive 06/15/24 06/15/24 tablet,extended release 24 hr Bladder Allergies Allergy/AdvReac Type Severity Reaction Status Date / Time No Known Allergies Allergy Verified 06/15/24 18:31 Review of Systems Review of Systems: All systems reviewed & are unremarkable except as noted in HPI and below PMFSH Past Medical History Medical History Abnormal finding on ultrasound 8.8.22 calcified fibroid/ borderline endometrium 3.7 mm Anemia Arthritis Back pain Colon, diverticulosis Degenerative scoliosis Hepatitis Shingles Surgical History Surgical History Fracture of greater tuberosity of left humerus ORIF March 2020 History of hernia repair (~05/30/15) History of hernia repair (~05/04/13) History of tonsillectomy and adenoidectomy Hx of appendectomy (~12/31/11) S/P shoulder surgery Family History Family History Grandparent Diabetes mellitus Father Acute myocardial infarction, Onset Age: 49 Sibling Malignant neoplasm of prostate Social History Social History Smoking status: Never smoker Second hand tobacco smoke exposure: No Alcohol intake: never Substance use: never Substance use type: does not use Do You Feel Safe in your Home?: Yes Lack of Transportation: No Lack of Food: Never True Current Housing: I Have Housing Concerned About Future Housing: No Dif
[2024-06-15] MEDS: POTASSIUM CHLORIDE 20 MEQ PACKET (FOR LIQUID) 40 MEQ PO (23:01)
[2024-06-15] MEDS: PIPERACILLN/TAZ 3.375GM/NS50ML 3.375 GM/50 ML BAG IVPB (23:01)
--- NOTE | 2024-06-15 23:23 | ADMGEN ---
This patient, Kate Mccormick, was admitted to IMU Room 206-01 at 2312. Patient/family oriented to hospital policies and general routines including ID bracelet, bed and alarms, visiting hours, pain management, procedures, bathroom and other care routines, personal items, smoking policy, room service/diet, and visiting hours. Information on how to activate the Rapid Response Team has been discussed. Patient/Family are encouraged to report perceived risks to care and to ask questions if they do not understand what they are told or what they should do.
[2024-06-16] VITALS (13 sets, daily range): BP systolic 137–157; BP diastolic 54–67; PULSE 53–74; RESP 16–18; TEMP 36–36.4; O2SAT 98–100
[2024-06-16 05:10] LABS: Basophils Percent Auto 0.2 % (0.2-1.2); Eosinophils Percent Auto 0.1 % (0-4.4); Hematocrit 36.4 % (37.0-47.0); Hemoglobin 11.7 g/dL (12.0-15.0); Immature Granulocyte Absolute 0.09 K/mm3 (0.00-0.031); Immature Granulocyte Percent A 0.5 % (0-0.5); Lymphocytes Percent Auto 7.9 % (18.3-44.2); Mean Corpuscular HGB Conc 32.1 g/dl (32-36); Mean Corpuscular Volume 93.3 fl (80-100); Mean Platelet Volume 10.9 fl (7.4-10.4); Monocytes Absolute Auto 1.5 K/mm3 (0.1-0.6); Neutrophils Absolute Auto 13.6 K/mm3 (1.3-6.7); Neutrophils Percent Auto 82.3 % (45.5-73.1); Platelet Count Result 298 k/mm3 (150-375); Red Cell Distribution Width 12.9 % (11.5-14.5); White Blood Count 16.6 K/mm3 (4.5-10.0)
[2024-06-16 05:25] LABS: Alanine Aminotransferase 28 U/L (6-35); Albumin Level 4.1 g/dL (3.5-5.1); Alkaline Phosphatase 72 U/L (38-126); Anion Gap 10 mmol/L (4-12); Aspartate Amino Transferase 36 U/L (14-36); Bilirubin,Total 0.6 mg/dL (0.2-1.3); Blood Urea Nitrogen 25 mg/dL (7-17); Calcium 9.8 mg/dL (8.4-10.2); Carbon Dioxide 27 mmol/L (22-30); Chloride 102 mmol/L (98-107); Estimated CRCL calculation 41 ml/min; Estimated Glomerular Filt Rate 54; Glucose 109 mg/dL (65-110); Magnesium 1.9 mg/dL (1.6-2.3); Potassium 3.5 mmol/L (3.4-5.0); Sodium 139 mmol/L (137-145)
[2024-06-16] MEDS: PIPERACILLIN/TAZ 2.25G/NS 50ML 2.25 GM/50 ML BAG IVPB ×4 (06:00→22:46)
[2024-06-16 06:34] LABS: Glucose Point of Care 103 mg/dl (65-105)
[2024-06-16] MEDS: ENOXAPARIN 40 MG/0.4 ML SYRINGE SUB-Q (09:00)
[2024-06-16] MEDS: MAGNESIUM OXIDE 400 MG TABLET PO (09:01)
[2024-06-16] MEDS: FERROUS SULFATE 325 MG TABLET DR BY MOUTH (09:01)
[2024-06-16] MEDS: OPTI-GEN TAB 1 TABLET PO (09:01)
[2024-06-16] MEDS: lisinopriL 20 MG TABLET 40 MG PO (09:01)
[2024-06-16] MEDS: GABAPENTIN 300 MG CAPSULE PO (09:02)
[2024-06-16] MEDS: amLODIPine BESYLATE 5 MG TABLET PO (09:02)
[2024-06-16] MEDS: MULTIVITAMINS THERAPEUTIC TAB (*BKC) 1 TABLET PO (09:02)
[2024-06-16] MEDS: CHOLECALCIFEROL 1,000 UNITS TABLET 2000 UNITS PO (09:02)
[2024-06-16] MEDS: hydroCHLOROthiazide 12.5 MG CAPSULE PO (09:03)
[2024-06-16] MEDS: CALCIUM CARBONATE (OSCAL) 250 MG TABLET PO (09:03)
[2024-06-16] MEDS: ATORVASTATIN 10 MG TABLET PO (09:18)
[2024-06-16 12:06] LABS: Glucose Point of Care 117 mg/dl (65-105)
--- NOTE | 2024-06-16 14:34 | PM.IMHP ---
H&P: HPI History of Present Illness Date/Time: 06/16/24 14:34 Chief Complaint: AMS and diarrhea Narrative: 73-year-old female with history of hypertension, aortic stenosis, aortic regurgitation, CKD stage 3, diabetes, PAD presents to the emergency department via EMS from home with her family at bedside for nausea and vomiting, diarrhea and altered mental status. Pt had been seen in ED on Thursday given fluids and sent home for viral gastroenteritis after negative lab tests. Pt continued to have diarrhea and vomiting at home after her ED visit. Diarrhea her states started from Thursday after a camping trip. Pt was not able to eat anything since thursday and has been having ongoing diarrhea. Pt admitted with AMS, states she went unresponsive for them at home so they returned to ED. Imaging shows ct head which was negative ct abdo shows -ild colonic wall thickening most prominent in the proximal colon where there is hyperemia of the vasa recta suspicious for colitis which could be infectious or inflammatory in etiology. Pt admitted for AMS secondary to malnutrition,colitis and suspected UTi Review of Systems Review of Systems: Pt is too sleepy to give history Systems review positive for diarrhea and vomiting and loss of consciousness all other 12 systems reviewed with and are negative PMFSH Past Medical History Medical History Abnormal finding on ultrasound 8.8.22 calcified fibroid/ borderline endometrium 3.7 mm Anemia Arthritis Back pain Colon, diverticulosis Degenerative scoliosis Hepatitis Shingles Surgical History Surgical History Fracture of greater tuberosity of left humerus ORIF March 2020 History of hernia repair (~05/30/15) History of hernia repair (~05/04/13) History of tonsillectomy and adenoidectomy Hx of appendectomy (~12/31/11) S/P shoulder surgery Family History Family History Grandparent Diabetes mellitus Father Acute myocardial infarction, Onset Age: 49 Sibling Malignant neoplasm of prostate Social History Social History Smoking status: Never smoker Second hand tobacco smoke exposure: No Alcohol intake: never Substance use: never Substance use type: does not use Do You Feel Safe in your Home?: Yes Lack of Transportation: No Lack of Food: Never True Current Housing: I Have Housing Concerned About Future Housing: No Difficulty Paying Gas/Electric Bills: No Difficulty Paying for Meds: No Currently Unemployed: No Education: High School Diploma/GED Difficulty w/ Childcare or Family Care: No Living arrangements: with family Spiritual care concerns: No Meds Home Medications and Allergies Home Medications Medication Instructions Recorded Confirmed Type multivitamin (Daily Multi-Vitamin 1 tablet PO DAILY 10/12/19 06/15/24 History tablet) ferrous sulfate 325 mg (65 mg 325 mg PO DAILY 12/28/19 06/15/24 History iron) tablet morphine 30 mg tablet,extended 30 mg PO Q8H 12/28/19 06/15/24 History release vit C 250 mg-vit E 90 mg-zinc 40 1 tablet PO BID 04/12/20 06/15/24 History mg-copper 1 ci-qlgwcq-dxgcug capsule (PreserVision AREDS-2) ixkjkge-umozdzgsr-hkvh 333 mg-133 1 tablet PO DAILY 12/10/22 06/15/24 History mg-5 mg tablet cholecalciferol (vitamin D3) 50 50 mcg PO DAILY 12/10/22 06/15/24 History mcg (2,000 unit) capsule magnesium oxide 400 mg PO TID 06/10/23 06/15/24 History betamethasone dipropionate 0.05 % 1 applic topical BID PRN itching 11/03/23 06/15/24 Rx topical cream #45 grams diclofenac sodium 75 mg 75 mg PO BID PRN pain #180 tabs 04/27/24 06/15/24 Rx tablet,delayed release furosemide 20 mg tablet 20 mg PO QAM PRN Edema #90 tabs 04/27/24 06/15/24 Rx
[2024-06-16 15:30] LABS: Glucose Point of Care 108 mg/dl (65-105)
--- NOTE | 2024-06-16 15:40 | PC.NURSE ---
Resting in bed with eyes closed. Skin pale. Opens eyes to painful stimuli but does not regard. Unable to follow commands. Dr. Daniel made aware. New orders noted. at bedside.
[2024-06-16] MEDS: SODIUM CHLORIDE 0.9% IV 1,000 ML 100 ML IV CONT (15:49)
[2024-06-16] MEDS: NALOXONE HCL 0.4 MG/ML VIAL 0.1 MG IV PUSH (15:49)
[2024-06-16 16:32] LABS: Hematocrit 36.6 % (37.0-47.0); Hemoglobin 12.3 g/dL (12.0-15.0); Mean Corpuscular HGB Conc 33.6 g/dl (32-36); Mean Corpuscular Hemoglobin 30.8 pg (26-34); Mean Corpuscular Volume 91.7 fl (80-100); Mean Platelet Volume 10.4 fl (7.4-10.4); Platelet Count Result 286 k/mm3 (150-375); Red Blood Count 3.99 M/mm3 (4.2-5.4); Red Cell Distribution Width 12.9 % (11.5-14.5); White Blood Count 13.9 K/mm3 (4.5-10.0)
[2024-06-16 16:33] LABS: Glucose Point of Care 116 mg/dl (65-105)
[2024-06-16 16:42] LABS: Anion Gap 10 mmol/L (4-12); Blood Urea Nitrogen 21 mg/dL (7-17); Calcium 9.9 mg/dL (8.4-10.2); Carbon Dioxide 26 mmol/L (22-30); Chloride 100 mmol/L (98-107); Estimated CRCL calculation 45 ml/min; Estimated Glomerular Filt Rate > 60; Glucose 106 mg/dL (65-110); Magnesium 1.9 mg/dL (1.6-2.3); Potassium 3.3 mmol/L (3.4-5.0); Sodium 136 mmol/L (137-145)
[2024-06-16] MEDS: SODIUM CHLORIDE 0.9% IV 1,000 ML 999 ML IV CONT (17:10)
--- NOTE | 2024-06-16 18:05 | PC.NURSE ---
1L bolus of NS complete. Pt drowsy but responsive to verbal stimuli. Alert and oriented x 4. Continent of bladder.
[2024-06-16] MEDS: metroNIDAZOLE 500 MG/ISO 100ML 500 MG/100 ML BAG 100 MG IVPB ×2 (18:25→23:54)
[2024-06-16 20:12] LABS: Glucose Point of Care 106 mg/dl (65-105)
[2024-06-17] VITALS (17 sets, daily range): BP systolic 142–161; BP diastolic 54–66; PULSE 46–67; RESP 16–20; TEMP 36.2–37.1; O2SAT 95–100
[2024-06-17] MEDS: PIPERACILLIN/TAZ 2.25G/NS 50ML 2.25 GM/50 ML BAG IVPB ×4 (05:01→23:02)
[2024-06-17 05:27] LABS: Basophils Percent Auto 0.2 % (0.2-1.2); Eosinophils Percent Auto 0.2 % (0-4.4); Hematocrit 36.7 % (37.0-47.0); Hemoglobin 12.2 g/dL (12.0-15.0); Immature Granulocyte Absolute 0.07 K/mm3 (0.00-0.031); Immature Granulocyte Percent A 0.5 % (0-0.5); Lymphocytes Absolute Auto 1.52 K/mm3 (0.9-3.2); Lymphocytes Percent Auto 11.6 % (18.3-44.2); Mean Corpuscular HGB Conc 33.2 g/dl (32-36); Mean Corpuscular Hemoglobin 30.6 pg (26-34); Mean Platelet Volume 10.9 fl (7.4-10.4); Monocytes Absolute Auto 1.1 K/mm3 (0.1-0.6); Neutrophils Absolute Auto 10.5 K/mm3 (1.3-6.7); Neutrophils Percent Auto 79.5 % (45.5-73.1); Platelet Count Result 284 k/mm3 (150-375); Red Blood Count 3.99 M/mm3 (4.2-5.4); Red Cell Distribution Width 12.6 % (11.5-14.5); White Blood Count 13.2 K/mm3 (4.5-10.0)
[2024-06-17 05:33] LABS: Alanine Aminotransferase 23 U/L (6-35); Albumin Level 3.8 g/dL (3.5-5.1); Alkaline Phosphatase 68 U/L (38-126); Anion Gap 11 mmol/L (4-12); Aspartate Amino Transferase 29 U/L (14-36); Bilirubin,Total 0.6 mg/dL (0.2-1.3); Blood Urea Nitrogen 17 mg/dL (7-17); Calcium 9.5 mg/dL (8.4-10.2); Carbon Dioxide 25 mmol/L (22-30); Chloride 100 mmol/L (98-107); Estimated CRCL calculation 50 ml/min; Estimated Glomerular Filt Rate > 60; Glucose 90 mg/dL (65-110); Magnesium 1.7 mg/dL (1.6-2.3); Potassium 2.9 mmol/L (3.4-5.0); Sodium 136 mmol/L (137-145)
[2024-06-17] MEDS: metroNIDAZOLE 500 MG/ISO 100ML 500 MG/100 ML BAG 100 MG IVPB ×3 (06:03→17:36)
[2024-06-17 06:34] LABS: Glucose Point of Care 93 mg/dl (65-105)
[2024-06-17] MEDS: ENOXAPARIN 40 MG/0.4 ML SYRINGE SUB-Q (08:23)
[2024-06-17] MEDS: ACETAMINOPHEN 325 MG TABLET 650 MG PO (08:24)
[2024-06-17] MEDS: POTASSIUM CHLORIDE 20 MEQ ER TABLET 40 MEQ PO (08:28)
[2024-06-17] MEDS: ONDANSETRON INJ 4 MG/2 ML VIAL IV PUSH (08:35)
--- NOTE | 2024-06-17 09:24 | PM.IMPN ---
Progress Note: A&P Assessment and Plan (1) Colitis: Code(s): K52.9 - Noninfective gastroenteritis and colitis, unspecified Status: Acute Assessment and Plan: CT abdo shows colitis Add iv zosyn and oral flagyl await stool culture pt to start on iv fluids and continue iv abx (2) Altered mental status: Qualifiers: Altered mental status type: unspecified Qualified Code(s): R41.82 - Altered mental status, unspecified Code(s): R41.82 - Altered mental status, unspecified Status: Acute Assessment and Plan: Likely due to dehydration and malnutrition Watch for improvement Ct head is negative unlikely due to neurology problem (3) Abnormal urinalysis: Code(s): R82.90 - Unspecified abnormal findings in urine Status: Acute Assessment and Plan: Suspected UTI await UC Pt is on iv zosyn history of vaginal prolapse (4) Vaginal vault prolapse: Code(s): N81.9 - Female genital prolapse, unspecified Status: Acute Assessment and Plan: Chronic problem pt sees DRUM SAW OPERATOR here (5) Cystocele: Status: Acute Assessment and Plan: pt sees DRUM SAW OPERATOR pt is on oxybutynin (6) PAD (peripheral artery disease): Code(s): I73.9 - Peripheral vascular disease, unspecified Status: Acute Assessment and Plan: chronic problem pt takes medications for PAD (7) Essential (primary) hypertension: Code(s): I10 - Essential (primary) hypertension Status: Acute Assessment and Plan: chronic and stable on medications norvasc, lasix, lisinopril (8) Chronic kidney disease, stage 3 (moderate): Qualifiers: Chronic kidney disease stage 3 subtype: stage 3a (GFR 45-59) Qualified Code(s): N18.31 - Chronic kidney disease, stage 3a Code(s): N18.3 - Chronic kidney disease, stage 3 (moderate) Status: Acute Assessment and Plan: continue fluids watch UO and BMp (9) Chronic low back pain with sciatica: Code(s): M54.40 - Lumbago with sciatica, unspecified side; G89.29 - Other chronic pain Status: Acute Assessment and Plan: pt takes morphine at home Plan pt remains full code lovenox for DVT prop ordered Subjective Date/time seen: 06/17/24 09:24 Interval history: Pt admitted for AMS secondary to malnutrition,colitis and suspected UTI Narrative retrieved from H/P: 73-year-old female with history of hypertension, aortic stenosis, aortic regurgitation, CKD stage 3, diabetes, PAD presents to the emergency department via EMS from home with her family at bedside for nausea and vomiting, diarrhea and altered mental status. Pt had been seen in ED on Thursday given fluids and sent home for viral gastroenteritis after negative lab tests. Pt continued to have diarrhea and vomiting at home after her ED visit. Diarrhea her states started from Thursday after a camping trip. Pt was not able to eat anything since thursday and has been having ongoing diarrhea. Pt admitted with AMS, states she went unresponsive for them at home so they returned to ED. Imaging shows ct head which was negative ct abdo shows -lid colonic wall thickening most prominent in the proximal colon where there is hyperemia of the vasa recta suspicious for colitis which could be infectious or inflammatory in etiology. 06/17- assuming care. pt is seen and examined today. Episodes of nausea and vomiting this am. On IV fluids and antibiotics (Zosyn). reports that she takes a lot of pain meds at home- following with pain management doctor- has back nurse stimulator. apparently she take morphine at home for pain taht was held Review of Systems Review of Systems: Pt is too sleepy to give history Systems review positive for diarrhea and vomiting and loss of consciousness all other 12 systems reviewed with and are negative Exam Const: General: in distress, overweight and other (arousabl
[2024-06-17] MEDS: SODIUM CHLORIDE 0.9% IV 1,000 ML 100 ML IV CONT (09:35)
[2024-06-17] MEDS: MAGNESIUM SULF 2 GM/WATER 50ML 2 GM/50 ML BAG IVPB (09:45)
[2024-06-17] MEDS: POTASSIUM CHLORIDE INJ 40 MEQ in SODIUM CHLORIDE 0.9% IV 500 ML 130 MEQ IVPB (09:46)
[2024-06-17 11:26] LABS: Glucose Point of Care 89 mg/dl (65-105)
[2024-06-17] MEDS: KETOROLAC 15 MG/ML VIAL (*BKC) IV PUSH (12:14)
[2024-06-17 17:56] LABS: Glucose Point of Care 98 mg/dl (65-105)
[2024-06-18] VITALS (13 sets, daily range): BP systolic 111–153; BP diastolic 47–68; PULSE 48–77; RESP 14–24; TEMP 36.4–37.2; O2SAT 97–100
[2024-06-18] MEDS: metroNIDAZOLE 500 MG/ISO 100ML 500 MG/100 ML BAG 100 MG IVPB ×5 (00:08→23:41)
[2024-06-18] MEDS: SODIUM CHLORIDE 0.9% IV 1,000 ML 100 ML IV CONT ×2 (02:26→20:10)
[2024-06-18 04:41] LABS: Basophils Percent Auto 0.2 % (0.2-1.2); Eosinophils Absolute Auto 0.1 K/mm3 (0-0.3); Eosinophils Percent Auto 0.4 % (0-4.4); Hemoglobin 11.2 g/dL (12.0-15.0); Immature Granulocyte Absolute 0.07 K/mm3 (0.00-0.031); Immature Granulocyte Percent A 0.5 % (0-0.5); Lymphocytes Percent Auto 10.6 % (18.3-44.2); Mean Corpuscular HGB Conc 32.9 g/dl (32-36); Mean Corpuscular Hemoglobin 30.1 pg (26-34); Mean Corpuscular Volume 91.4 fl (80-100); Monocytes Absolute Auto 1.1 K/mm3 (0.1-0.6); Neutrophils Absolute Auto 11.4 K/mm3 (1.3-6.7); Neutrophils Percent Auto 80.3 % (45.5-73.1); Platelet Count Result 260 k/mm3 (150-375); Red Blood Count 3.72 M/mm3 (4.2-5.4); Red Cell Distribution Width 12.6 % (11.5-14.5); White Blood Count 14.2 K/mm3 (4.5-10.0)
[2024-06-18 04:47] LABS: Alanine Aminotransferase 21 U/L (6-35); Albumin Level 3.7 g/dL (3.5-5.1); Alkaline Phosphatase 64 U/L (38-126); Anion Gap 10 mmol/L (4-12); Aspartate Amino Transferase 24 U/L (14-36); Bilirubin,Total 0.6 mg/dL (0.2-1.3); Blood Urea Nitrogen 14 mg/dL (7-17); Calcium 9.2 mg/dL (8.4-10.2); Carbon Dioxide 22 mmol/L (22-30); Chloride 103 mmol/L (98-107); Estimated CRCL calculation 50 ml/min; Estimated Glomerular Filt Rate > 60; Glucose 92 mg/dL (65-110); Magnesium 2.1 mg/dL (1.6-2.3); Potassium 3.5 mmol/L (3.4-5.0); Sodium 135 mmol/L (137-145)
[2024-06-18] MEDS: PIPERACILLIN/TAZ 2.25G/NS 50ML 2.25 GM/50 ML BAG IVPB ×4 (05:40→23:03)
--- NOTE | 2024-06-18 07:24 | PM.IMPN ---
Progress Note: A&P Assessment and Plan (1) Colitis: Code(s): K52.9 - Noninfective gastroenteritis and colitis, unspecified Status: Acute Assessment and Plan: CT abdo shows colitis Add iv zosyn and oral flagyl await stool culture pt to start on iv fluids and continue iv abx 06/18- stool cultures still pending slight increase in wbc, afebrile (2) Altered mental status: Qualifiers: Altered mental status type: unspecified Qualified Code(s): R41.82 - Altered mental status, unspecified Code(s): R41.82 - Altered mental status, unspecified Status: Acute Assessment and Plan: Likely due to dehydration and malnutrition Watch for improvement Ct head is negative unlikely due to neurology problem - continue to monitor, IV fluids, strick I/O - 06/18- she is a little better this am- but drowsy and very tired. Not much rest overnight as her roommate kept her awake- discussed with using staff about moving confused pt out or switching rooms to ensure adequate rest (3) Abnormal urinalysis: Code(s): R82.90 - Unspecified abnormal findings in urine Status: Acute Assessment and Plan: Suspected UTI await UC Pt is on iv zosyn history of vaginal prolapse (4) Vaginal vault prolapse: Code(s): N81.9 - Female genital prolapse, unspecified Status: Acute Assessment and Plan: Chronic problem pt sees NUMERICAL CONTROL TOOL PROGRAMMER here (5) Cystocele: Status: Acute Assessment and Plan: pt sees NUMERICAL CONTROL TOOL PROGRAMMER pt is on oxybutynin (6) PAD (peripheral artery disease): Code(s): I73.9 - Peripheral vascular disease, unspecified Status: Acute Assessment and Plan: chronic problem pt takes medications for PAD (7) Essential (primary) hypertension: Code(s): I10 - Essential (primary) hypertension Status: Acute Assessment and Plan: chronic and stable on medications norvasc, lasix, lisinopril (8) Chronic kidney disease, stage 3 (moderate): Qualifiers: Chronic kidney disease stage 3 subtype: stage 3a (GFR 45-59) Qualified Code(s): N18.31 - Chronic kidney disease, stage 3a Code(s): N18.3 - Chronic kidney disease, stage 3 (moderate) Status: Acute Assessment and Plan: continue fluids watch UO and BMp (9) Chronic low back pain with sciatica: Code(s): M54.40 - Lumbago with sciatica, unspecified side; G89.29 - Other chronic pain Status: Acute Assessment and Plan: pt takes morphine at home - had narcan administered in ed- so try to avoid narcotics - kidney function back to baseline- so trying low dose toradol- controlling pain well so far Plan pt remains full code lovenox for DVT prop ordered Time Spent With Patient Time with patient: Greater than 35 minutes Subjective Date/time seen: 06/18/24 07:24 Interval history: Pt admitted for AMS secondary to malnutrition,colitis and suspected UTI Narrative retrieved from H/P: 73-year-old female with history of hypertension, aortic stenosis, aortic regurgitation, CKD stage 3, diabetes, PAD presents to the emergency department via EMS from home with her family at bedside for nausea and vomiting, diarrhea and altered mental status. Pt had been seen in ED on Thursday given fluids and sent home for viral gastroenteritis after negative lab tests. Pt continued to have diarrhea and vomiting at home after her ED visit. Diarrhea her states started from Thursday after a camping trip. Pt was not able to eat anything since thursday and has been having ongoing diarrhea. Pt admitted with AMS, states she went unresponsive for them at home so they returned to ED. Imaging shows ct head which was negative ct abdo shows -lid colonic wall thickening most prominent in the proximal colon where there is hyperemia of the vasa recta suspicious for colitis which could be infectious or inflammatory in etiology. 06/17- assuming care. pt is seen and examined today.
[2024-06-18] MEDS: ENOXAPARIN 40 MG/0.4 ML SYRINGE SUB-Q (09:31)
[2024-06-18] MEDS: ONDANSETRON INJ 4 MG/2 ML VIAL IV PUSH (09:54)
[2024-06-18] MEDS: GABAPENTIN 300 MG CAPSULE PO (09:54)
[2024-06-18] MEDS: ATORVASTATIN 10 MG TABLET PO (09:54)
[2024-06-18] MEDS: CHOLECALCIFEROL 1,000 UNITS TABLET 2000 UNITS PO (09:54)
[2024-06-18] MEDS: FERROUS SULFATE 325 MG TABLET DR BY MOUTH (09:54)
[2024-06-18] MEDS: hydroCHLOROthiazide 12.5 MG CAPSULE PO (09:54)
[2024-06-18] MEDS: amLODIPine BESYLATE 5 MG TABLET PO (09:54)
[2024-06-18] MEDS: lisinopriL 20 MG TABLET 40 MG PO (09:54)
[2024-06-18] MEDS: MAGNESIUM OXIDE 400 MG TABLET PO ×3 (09:54→17:49)
[2024-06-18] MEDS: OPTI-GEN TAB 1 TABLET PO ×2 (09:55→17:49)
[2024-06-18] MEDS: MULTIVITAMINS THERAPEUTIC TAB (*BKC) 1 TABLET PO (09:55)
[2024-06-18] MEDS: KCL 20 MEQ/SW 100 ML 100 ML 50 MEQ IVPB (09:57)
[2024-06-19] VITALS (13 sets, daily range): BP systolic 142–168; BP diastolic 53–60; PULSE 47–70; RESP 16–24; TEMP 36.4–37.5; O2SAT 96–100
[2024-06-19] MEDS: PIPERACILLIN/TAZ 2.25G/NS 50ML 2.25 GM/50 ML BAG IVPB ×4 (05:53→22:33)
[2024-06-19] MEDS: metroNIDAZOLE 500 MG/ISO 100ML 500 MG/100 ML BAG 100 MG IVPB ×2 (06:34→13:15)
[2024-06-19 07:03] LABS: Basophils Percent Auto 0.2 % (0.2-1.2); Eosinophils Absolute Auto 0.2 K/mm3 (0-0.3); Eosinophils Percent Auto 1.5 % (0-4.4); Hematocrit 32.4 % (37.0-47.0); Hemoglobin 10.9 g/dL (12.0-15.0); Immature Granulocyte Absolute 0.07 K/mm3 (0.00-0.031); Immature Granulocyte Percent A 0.5 % (0-0.5); Lymphocytes Absolute Auto 1.48 K/mm3 (0.9-3.2); Lymphocytes Percent Auto 10.9 % (18.3-44.2); Mean Corpuscular HGB Conc 33.6 g/dl (32-36); Mean Corpuscular Hemoglobin 30.9 pg (26-34); Mean Corpuscular Volume 91.8 fl (80-100); Mean Platelet Volume 10.3 fl (7.4-10.4); Monocytes Absolute Auto 1.1 K/mm3 (0.1-0.6); Neutrophils Absolute Auto 10.7 K/mm3 (1.3-6.7); Neutrophils Percent Auto 78.9 % (45.5-73.1); Platelet Count Result 238 k/mm3 (150-375); Red Blood Count 3.53 M/mm3 (4.2-5.4); Red Cell Distribution Width 12.8 % (11.5-14.5); White Blood Count 13.6 K/mm3 (4.5-10.0)
[2024-06-19 07:20] LABS: Alanine Aminotransferase 21 U/L (6-35); Albumin Level 3.2 g/dL (3.5-5.1); Alkaline Phosphatase 60 U/L (38-126); Anion Gap 9 mmol/L (4-12); Aspartate Amino Transferase 31 U/L (14-36); Bilirubin,Total 0.4 mg/dL (0.2-1.3); Blood Urea Nitrogen 10 mg/dL (7-17); Calcium 8.9 mg/dL (8.4-10.2); Carbon Dioxide 21 mmol/L (22-30); Chloride 101 mmol/L (98-107); Estimated CRCL calculation 57 ml/min; Estimated Glomerular Filt Rate > 60; Glucose 100 mg/dL (65-110); Magnesium 1.7 mg/dL (1.6-2.3); Potassium 3.1 mmol/L (3.4-5.0); Sodium 131 mmol/L (137-145)
--- NOTE | 2024-06-19 07:31 | PM.IMPN ---
Progress Note: A&P Assessment and Plan (1) Colitis: Code(s): K52.9 - Noninfective gastroenteritis and colitis, unspecified Status: Acute Assessment and Plan: CT abdo shows colitis Add iv zosyn and oral flagyl await stool culture pt to start on iv fluids and continue iv abx 06/18- stool cultures still pending slight increase in wbc, afebrile 06/19- wbc trending down (2) Altered mental status: Qualifiers: Altered mental status type: unspecified Qualified Code(s): R41.82 - Altered mental status, unspecified Code(s): R41.82 - Altered mental status, unspecified Status: Acute Assessment and Plan: Likely due to dehydration and malnutrition Watch for improvement Ct head is negative unlikely due to neurology problem - continue to monitor, IV fluids, strick I/O - 06/18- she is a little better this am- but drowsy and very tired. Not much rest overnight as her roommate kept her awake- discussed with using staff about moving confused pt out or switching rooms to ensure adequate rest 06/19- resting now this am, anticipate moving pt out of IMU if improved with mental status (3) Abnormal urinalysis: Code(s): R82.90 - Unspecified abnormal findings in urine Status: Acute Assessment and Plan: Suspected UTI await UC Pt is on iv zosyn history of vaginal prolapse (4) Vaginal vault prolapse: Code(s): N81.9 - Female genital prolapse, unspecified Status: Acute Assessment and Plan: Chronic problem pt sees PARAPROFESSIONAL INTERPRETER here (5) Cystocele: Status: Acute Assessment and Plan: pt sees PARAPROFESSIONAL INTERPRETER pt is on oxybutynin (6) PAD (peripheral artery disease): Code(s): I73.9 - Peripheral vascular disease, unspecified Status: Acute Assessment and Plan: chronic problem pt takes medications for PAD (7) Essential (primary) hypertension: Code(s): I10 - Essential (primary) hypertension Status: Acute Assessment and Plan: chronic and stable on medications norvasc, lasix, lisinopril (8) Chronic kidney disease, stage 3 (moderate): Qualifiers: Chronic kidney disease stage 3 subtype: stage 3a (GFR 45-59) Qualified Code(s): N18.31 - Chronic kidney disease, stage 3a Code(s): N18.3 - Chronic kidney disease, stage 3 (moderate) Status: Acute Assessment and Plan: continue fluids watch UO and BMp (9) Chronic low back pain with sciatica: Code(s): M54.40 - Lumbago with sciatica, unspecified side; G89.29 - Other chronic pain Status: Acute Assessment and Plan: pt takes morphine at home - had narcan administered in ed- so try to avoid narcotics - kidney function back to baseline- so trying low dose toradol- controlling pain well so far-continue Plan pt remains full code lovenox for DVT prop ordered Time Spent With Patient Time with patient: Greater than 35 minutes Subjective Date/time seen: 06/19/24 07:31 Interval history: Pt admitted for AMS secondary to malnutrition,colitis and suspected UTI Narrative retrieved from H/P: 73-year-old female with history of hypertension, aortic stenosis, aortic regurgitation, CKD stage 3, diabetes, PAD presents to the emergency department via EMS from home with her family at bedside for nausea and vomiting, diarrhea and altered mental status. Pt had been seen in ED on Thursday given fluids and sent home for viral gastroenteritis after negative lab tests. Pt continued to have diarrhea and vomiting at home after her ED visit. Diarrhea her states started from Thursday after a camping trip. Pt was not able to eat anything since thursday and has been having ongoing diarrhea. Pt admitted with AMS, states she went unresponsive for them at home so they returned to ED. Imaging shows ct head which was negative ct abdo shows -lid colonic wall thickening most prominent in the proximal colon where there is hyperemia of the vasa recta suspi
[2024-06-19] MEDS: amLODIPine BESYLATE 5 MG TABLET PO (10:23)
[2024-06-19] MEDS: POTASSIUM CHLORIDE INJ 40 MEQ in SODIUM CHLORIDE 0.9% IV 500 ML 130 MEQ IVPB (10:23)
[2024-06-19] MEDS: ATORVASTATIN 10 MG TABLET PO (10:24)
[2024-06-19] MEDS: CHOLECALCIFEROL 1,000 UNITS TABLET 2000 UNITS PO (10:25)
[2024-06-19] MEDS: FERROUS SULFATE 325 MG TABLET DR BY MOUTH (10:25)
[2024-06-19] MEDS: GABAPENTIN 300 MG CAPSULE PO (10:26)
[2024-06-19] MEDS: lisinopriL 20 MG TABLET 40 MG PO (10:26)
[2024-06-19] MEDS: hydroCHLOROthiazide 12.5 MG CAPSULE PO (10:26)
[2024-06-19] MEDS: ENOXAPARIN 40 MG/0.4 ML SYRINGE SUB-Q (10:27)
[2024-06-19] MEDS: OPTI-GEN TAB 1 TABLET PO (10:27)
[2024-06-19 15:46] LABS: Potassium 3.8 mmol/L (3.4-5.0)
[2024-06-19 15:50] LABS: Ammonia < 9 umol/L (9-30); Lactic Acid Reflex 0.8 mmol/L (0.7-2.0)
[2024-06-19 15:59] LABS: Alveolar/Arterial O2 Gradient 35.7 mmHg; Base Excess ABG -1.4 mEq/l (+/-2.0); Carboxyhemoglobin 0.2 % THb (0-2.0); Fractional Inspired Oxygen 21 %; HCO3 ABG 21.3 mEq/l (22.0-26.0); Methemoglobin ABG 0.3 %THb (0-1.5); Oxygen Saturation ABG 96.4 % (95.0-100.0); Oxyhemoglobin 95.9 % THb (90.0-100.0); PO2 ABG 78.1 mmHg (80.0-100.0); PO2 FiO2 Ratio Arterial Blood 3.72 %; Reduced Hemoglobin 3.6 %THb (0-5.0); Total Hemoglobin 11.8 g/dL (12.0-18.0)
[2024-06-19 16:04] LABS: Device ROOM AIR; Site Drawn LEFT RADIAL
[2024-06-19 18:23] LABS: Iron 44 ug/dL (37-170)
[2024-06-19 18:33] LABS: Percent Iron Saturation 20 % (20-50)
[2024-06-19 19:13] LABS: Vitamin B12 > 1000.0 pg/mL (239-931)
[2024-06-19 20:09] LABS: MRSA (PCR) NOT DETECTED (NOT DETECTE)
[2024-06-19 22:28] LABS: Add Urine Microscopic? YES; Appearance Urine Clear (Clear); Bacteria Urine None Seen /hpf; Bilirubin Urine Negative (Negative); Blood Urine 2+ (Negative); Budding Yeast Urine Present /hpf; Color Urine Yellow (Yellow); Glucose Urine UA Negative (Negative); Ketones Urine 1+ mg/dL (Negative); Leukocyte Esterase Ur 3+ LEU/UL (Negative); Need Manual Microscopic Reviewed; Nitrate Urine Negative (Negative); Non Pathogenic Casts 0-2; Protein Urine Negative (Negative); RBC Urine 0-2 /hpf (0-2); Squamous Epithelial Cell Urine None Seen /hpf (Few); Urobilinogen Urine 0.2 mg/dL (<2.0); WBC Urine 0-5 /hpf (0-3); pH Urine 5.5 (5.0-9.0)
[2024-06-20] VITALS (16 sets, daily range): BP systolic 137–150; BP diastolic 60–75; PULSE 58–96; RESP 16–20; TEMP 36.3–36.6; O2SAT 97–99
[2024-06-20] MEDS: SODIUM CHLORIDE 0.9% IV 1,000 ML 100 ML IV CONT ×3 (00:24→22:26)
[2024-06-20] MEDS: PIPERACILLIN/TAZ 2.25G/NS 50ML 2.25 GM/50 ML BAG IVPB (05:06)
[2024-06-20 05:35] LABS: Basophils Percent Auto 0.3 % (0.2-1.2); Eosinophils Absolute Auto 0.1 K/mm3 (0-0.3); Eosinophils Percent Auto 0.9 % (0-4.4); Hematocrit 33.2 % (37.0-47.0); Hemoglobin 11.1 g/dL (12.0-15.0); Immature Granulocyte Absolute 0.09 K/mm3 (0.00-0.031); Immature Granulocyte Percent A 0.6 % (0-0.5); Lymphocytes Absolute Auto 1.32 K/mm3 (0.9-3.2); Lymphocytes Percent Auto 8.3 % (18.3-44.2); Mean Corpuscular HGB Conc 33.4 g/dl (32-36); Mean Corpuscular Hemoglobin 30.3 pg (26-34); Mean Corpuscular Volume 90.7 fl (80-100); Mean Platelet Volume 11.2 fl (7.4-10.4); Monocytes Absolute Auto 1.1 K/mm3 (0.1-0.6); Monocytes Percent Auto 6.6 % (2.6-8.5); Neutrophils Absolute Auto 13.2 K/mm3 (1.3-6.7); Neutrophils Percent Auto 83.3 % (45.5-73.1); Platelet Count Result 261 k/mm3 (150-375); Red Blood Count 3.66 M/mm3 (4.2-5.4); Red Cell Distribution Width 12.8 % (11.5-14.5); White Blood Count 15.9 K/mm3 (4.5-10.0)
[2024-06-20 05:57] LABS: Alanine Aminotransferase 35 U/L (6-35); Albumin Level 3.4 g/dL (3.5-5.1); Alkaline Phosphatase 65 U/L (38-126); Anion Gap 11 mmol/L (4-12); Aspartate Amino Transferase 46 U/L (14-36); Bilirubin,Total 0.5 mg/dL (0.2-1.3); Blood Urea Nitrogen 8 mg/dL (7-17); Calcium 9.1 mg/dL (8.4-10.2); Carbon Dioxide 22 mmol/L (22-30); Chloride 99 mmol/L (98-107); Estimated CRCL calculation 57 ml/min; Estimated Glomerular Filt Rate > 60; Glucose 81 mg/dL (65-110); Magnesium 1.6 mg/dL (1.6-2.3); Sodium 132 mmol/L (137-145)
[2024-06-20] MEDS: amLODIPine BESYLATE 5 MG TABLET PO (09:00)
[2024-06-20] MEDS: CALCIUM CARBONATE (OSCAL) 250 MG TABLET PO (09:00)
[2024-06-20] MEDS: FERROUS SULFATE 325 MG TABLET DR BY MOUTH (09:00)
[2024-06-20] MEDS: OPTI-GEN TAB 1 TABLET PO ×2 (09:00→17:33)
[2024-06-20] MEDS: lisinopriL 20 MG TABLET 40 MG PO (09:00)
[2024-06-20] MEDS: MULTIVITAMINS THERAPEUTIC TAB (*BKC) 1 TABLET PO (09:00)
[2024-06-20] MEDS: ATORVASTATIN 10 MG TABLET PO (09:00)
[2024-06-20] MEDS: GABAPENTIN 300 MG CAPSULE PO (09:00)
[2024-06-20] MEDS: POTASSIUM CHLORIDE 20 MEQ ER TABLET 40 MEQ PO (09:00)
[2024-06-20] MEDS: hydroCHLOROthiazide 12.5 MG CAPSULE PO (09:00)
[2024-06-20] MEDS: CHOLECALCIFEROL 1,000 UNITS TABLET 2000 UNITS PO (09:00)
[2024-06-20] MEDS: ENOXAPARIN 40 MG/0.4 ML SYRINGE SUB-Q (09:01)
[2024-06-20] MEDS: metroNIDAZOLE 500 MG/ISO 100ML 500 MG/100 ML BAG 100 MG IVPB ×2 (10:22→17:33)
[2024-06-20] MEDS: levoFLOXacin 750 MG/D5W 150 ML 750 MG/150 ML BAG 100 MG IVPB (10:23)
--- NOTE | 2024-06-20 13:04 | P.PNIM_ITS ---
Progress Note: A&P Assessment and Plan (1) Colitis: Code(s): K52.9 - Noninfective gastroenteritis and colitis, unspecified Status: Acute Assessment and Plan: CT abdo shows colitis Add iv zosyn and oral flagyl await stool culture pt to start on iv fluids and continue iv abx 06/18- stool cultures still pending slight increase in wbc, afebrile 06/19- wbc trending down 06/20/24: * WBC's uptrending from 13.6-->15.9 today. * Change Zosyn to Levaquin based on appearance of CXR and Urine cultures as well as presence of colitis. * Continue to trend labs and VS. * Not currently meeting sepsis criteria. * Flagyl restarted. (2) Altered mental status: Qualifiers: Altered mental status type: unspecified Qualified Code(s): R41.82 - Altered mental status, unspecified Code(s): R41.82 - Altered mental status, unspecified Status: Acute Assessment and Plan: Likely due to dehydration and malnutrition Watch for improvement Ct head is negative unlikely due to neurology problem - continue to monitor, IV fluids, strick I/O - 06/18- she is a little better this am- but drowsy and very tired. Not much rest overnight as her roommate kept her awake- discussed with using staff about moving confused pt out or switching rooms to ensure adequate rest 06/19- resting now this am, anticipate moving pt out of IMU if improved with mental status 06/20/24: * Alert and oriented, but very tired. * Continue IMU with uptrend in WBC's. * Continue I&O * Continue IVF * Trend labs (3) Abnormal urinalysis: Code(s): R82.90 - Unspecified abnormal findings in urine Status: Acute Assessment and Plan: Suspected UTI await UC Pt is on iv zosyn history of vaginal prolapse 06/18/26: * Urine is reflecting acute UTI. * Urine cx grew out E.coli and Staph aureus. * Keep follow up appointment with GRINDER SET UP OPERATOR CENTERLESS. * Abx changed to levaquin based on sensitivities. * Continue to monitor and trend labs and VS. (4) Pneumonia: Code(s): J18.9 - Pneumonia, unspecified organism Status: Acute Assessment and Plan: * As per CXR dated 06/19/24 pt has left basilar consolidation. * Abx changed to Levaquin. * Continue current treatment and monitoring. * Continue IS * Blood cultures negative to date. * Not meeting sepsis criteria. * Sputum culture ordered. (5) Vaginal vault prolapse: Code(s): N81.9 - Female genital prolapse, unspecified Status: Chronic Assessment and Plan: Chronic problem pt sees HYDRAULIC PRESS TENDER here 06/18/26: * Keep follow up appointment with HYDRAULIC PRESS TENDER. (6) Cystocele: Status: Chronic Assessment and Plan: pt sees HYDRAULIC PRESS TENDER pt is on oxybutynin 06/20/24: * Keep upcoming appointment with HYDRAULIC PRESS TENDER. (7) PAD (peripheral artery disease): Code(s): I73.9 - Peripheral vascular disease, unspecified Status: Chronic Assessment and Plan: chronic problem pt takes medications for PAD 06/20/24: * Continue home medications. (8) Essential (primary) hypertension: Code(s): I10 - Essential (primary) hypertension Status: Chronic Assessment and Plan: chronic and stable on medications norvasc, lasix, lisinopril 06/20/24: * Continue to monitor and trend VS. Continue home medications. * Currently stable. (9) Chronic kidney disease, stage 3 (moderate): Qualifiers: Chronic kidney disease stage 3 subtype: stage 3a (GFR 45-59) Qualified Code(s): N18.31 - Chronic kidney
--- NOTE | 2024-06-20 13:04 | PM.IMPN ---
Progress Note: A&P Assessment and Plan (1) Colitis: Code(s): K52.9 - Noninfective gastroenteritis and colitis, unspecified Status: Acute Assessment and Plan: CT abdo shows colitis Add iv zosyn and oral flagyl await stool culture pt to start on iv fluids and continue iv abx 06/18- stool cultures still pending slight increase in wbc, afebrile 06/19- wbc trending down 06/20/24: WBC's uptrending from 13.6-->15.9 today. Change Zosyn to Levaquin based on appearance of CXR and Urine cultures as well as presence of colitis. Continue to trend labs and VS. Not currently meeting sepsis criteria. Flagyl restarted. (2) Altered mental status: Qualifiers: Altered mental status type: unspecified Qualified Code(s): R41.82 - Altered mental status, unspecified Code(s): R41.82 - Altered mental status, unspecified Status: Acute Assessment and Plan: Likely due to dehydration and malnutrition Watch for improvement Ct head is negative unlikely due to neurology problem - continue to monitor, IV fluids, strick I/O - 06/18- she is a little better this am- but drowsy and very tired. Not much rest overnight as her roommate kept her awake- discussed with using staff about moving confused pt out or switching rooms to ensure adequate rest 06/19- resting now this am, anticipate moving pt out of IMU if improved with mental status 06/20/24: Alert and oriented, but very tired. Continue IMU with uptrend in WBC's. Continue I&O Continue IVF Trend labs (3) Abnormal urinalysis: Code(s): R82.90 - Unspecified abnormal findings in urine Status: Acute Assessment and Plan: Suspected UTI await UC Pt is on iv zosyn history of vaginal prolapse 06/18/26: Urine is reflecting acute UTI. Urine cx grew out E.coli and Staph aureus. Keep follow up appointment with REEXAMINER. Abx changed to levaquin based on sensitivities. Continue to monitor and trend labs and VS. (4) Pneumonia: Code(s): J18.9 - Pneumonia, unspecified organism Status: Acute Assessment and Plan: As per CXR dated 06/19/24 pt has left basilar consolidation. Abx changed to Levaquin. Continue current treatment and monitoring. Continue IS Blood cultures negative to date. Not meeting sepsis criteria. Sputum culture ordered. (5) Vaginal vault prolapse: Code(s): N81.9 - Female genital prolapse, unspecified Status: Chronic Assessment and Plan: Chronic problem pt sees INSTRUMENT LENS INSPECTOR here 06/18/26: Keep follow up appointment with INSTRUMENT LENS INSPECTOR. (6) Cystocele: Status: Chronic Assessment and Plan: pt sees INSTRUMENT LENS INSPECTOR pt is on oxybutynin 06/20/24: Keep upcoming appointment with INSTRUMENT LENS INSPECTOR. (7) PAD (peripheral artery disease): Code(s): I73.9 - Peripheral vascular disease, unspecified Status: Chronic Assessment and Plan: chronic problem pt takes medications for PAD 06/20/24: Continue home medications. (8) Essential (primary) hypertension: Code(s): I10 - Essential (primary) hypertension Status: Chronic Assessment and Plan: chronic and stable on medications norvasc, lasix, lisinopril 06/20/24: Continue to monitor and trend VS. Continue home medications. Currently stable. (9) Chronic kidney disease, stage 3 (moderate): Qualifiers: Chronic kidney disease stage 3 subtype: stage 3a (GFR 45-59) Qualified Code(s): N18.31 - Chronic kidney disease, stage 3a Code(s): N18.3 - Chronic kidney disease, stage 3 (moderate) Status: Chronic Assessment and Plan: continue fluids watch UO and BMp 06/20/24: UOP adequate. Continue accurate I&O. Renal function normal today at 0.7/8 Encourage po intake. (10) Chronic low back pain with sciatica: Code(s): M54.40 - Lumbago with sciatica, unspecified side; G89.29 - Other chronic pain Status: Acute Assessment and Plan: pt takes morphine at h
[2024-06-21] VITALS (15 sets, daily range): BP systolic 132–159; BP diastolic 68–78; PULSE 69–100; RESP 16–28; TEMP 36.2–36.6; O2SAT 96–100; BMI 22.3
[2024-06-21] MEDS: metroNIDAZOLE 500 MG/ISO 100ML 500 MG/100 ML BAG 100 MG IVPB ×2 (01:56→11:30)
[2024-06-21 05:37] LABS: Basophils Percent Auto 0.2 % (0.2-1.2); Eosinophils Percent Auto 0.3 % (0-4.4); Hematocrit 32.4 % (37.0-47.0); Immature Granulocyte Absolute 0.06 K/mm3 (0.00-0.031); Immature Granulocyte Percent A 0.5 % (0-0.5); Lymphocytes Absolute Auto 1.21 K/mm3 (0.9-3.2); Lymphocytes Percent Auto 9.1 % (18.3-44.2); Mean Corpuscular Hemoglobin 30.5 pg (26-34); Mean Corpuscular Volume 89.8 fl (80-100); Mean Platelet Volume 11.2 fl (7.4-10.4); Monocytes Absolute Auto 0.9 K/mm3 (0.1-0.6); Monocytes Percent Auto 6.7 % (2.6-8.5); Neutrophils Absolute Auto 11.1 K/mm3 (1.3-6.7); Neutrophils Percent Auto 83.2 % (45.5-73.1); Platelet Count Result 243 k/mm3 (150-375); Red Blood Count 3.61 M/mm3 (4.2-5.4); Red Cell Distribution Width 12.9 % (11.5-14.5); White Blood Count 13.3 K/mm3 (4.5-10.0)
[2024-06-21 05:55] LABS: Alanine Aminotransferase 50 U/L (6-35); Albumin Level 3.4 g/dL (3.5-5.1); Alkaline Phosphatase 59 U/L (38-126); Anion Gap 12 mmol/L (4-12); Aspartate Amino Transferase 57 U/L (14-36); Bilirubin,Total 0.4 mg/dL (0.2-1.3); Blood Urea Nitrogen 8 mg/dL (7-17); Calcium 8.9 mg/dL (8.4-10.2); Carbon Dioxide 19 mmol/L (22-30); Chloride 102 mmol/L (98-107); Estimated CRCL calculation 65 ml/min; Estimated Glomerular Filt Rate > 60; Glucose 95 mg/dL (65-110); Magnesium 1.6 mg/dL (1.6-2.3); Potassium 3.4 mmol/L (3.4-5.0); Sodium 133 mmol/L (137-145)
[2024-06-21] MEDS: ENOXAPARIN 40 MG/0.4 ML SYRINGE SUB-Q (09:30)
[2024-06-21] MEDS: levoFLOXacin 750 MG/D5W 150 ML 750 MG/150 ML BAG 100 MG IVPB (10:30)
--- NOTE | 2024-06-21 12:51 | P.PNIM_ITS ---
Progress Note: A&P Assessment and Plan (1) Colitis: Code(s): K52.9 - Noninfective gastroenteritis and colitis, unspecified Status: Acute Assessment and Plan: CT abdo shows colitis Add iv zosyn and oral flagyl await stool culture pt to start on iv fluids and continue iv abx 06/18- stool cultures still pending slight increase in wbc, afebrile 06/19- wbc trending down 06/20/24: * WBC's uptrending from 13.6-->15.9 today. * Change Zosyn to Levaquin based on appearance of CXR and Urine cultures as well as presence of colitis. * Continue to trend labs and VS. * Not currently meeting sepsis criteria. * Flagyl restarted. 06/21/24: * Interval decrease in WBCs from 15.9-->13.3 today. * Continue Levaquin and Flagyl. * Continue to trend labs and VS. * Not currently meeting sepsis criteria. (2) Altered mental status: Qualifiers: Altered mental status type: unspecified Qualified Code(s): R41.82 - Altered mental status, unspecified Code(s): R41.82 - Altered mental status, unspecified Status: Acute Assessment and Plan: Likely due to dehydration and malnutrition Watch for improvement Ct head is negative unlikely due to neurology problem - continue to monitor, IV fluids, strick I/O - 06/18- she is a little better this am- but drowsy and very tired. Not much rest overnight as her roommate kept her awake- discussed with using staff about moving confused pt out or switching rooms to ensure adequate rest 06/19- resting now this am, anticipate moving pt out of IMU if improved with mental status 06/20/24: * Alert and oriented, but very tired. * Continue IMU with uptrend in WBC's. * Continue I&O * Continue IVF * Trend labs 06/21/24: * Continues to be fatigued and weak but stable. * When aroused, answers questions appropriately. * Continue to trend labs and abx. (3) Abnormal urinalysis: Code(s): R82.90 - Unspecified abnormal findings in urine Status: Acute Assessment and Plan: Suspected UTI await UC Pt is on iv zosyn history of vaginal prolapse 06/20/24: * Urine is reflecting acute UTI. * Urine cx grew out E.coli and Staph aureus. * Keep follow up appointment with DRILLING ENGINEERING MANAGER. * Abx changed to levaquin based on sensitivities. * Continue to monitor and trend labs and VS. 06/21/24: * Continue Levaquin for UTI of E.coli and staph aureus * MRSA swab negative. * Not meeting Sepsis criteria. (4) Pneumonia: Code(s): J18.9 - Pneumonia, unspecified organism Status: Acute Assessment and Plan: * As per CXR dated 06/19/24 pt has left basilar consolidation. * Abx changed to Levaquin. * Continue current treatment and monitoring. * Continue IS * Blood cultures negative to date. * Not meeting sepsis criteria. * Sputum culture ordered. 06/21/24: * VS stable including oxygen sats. * Not meeting sepsis criteria. * Continue IS * Obtain sputum cx * Blood cultures negative. * Day #2 of Levaquin. (5) Generalized weakness: Code(s): R53.1 - Weakness Status: Acute Assessment and Plan: * in setting of acute PNA, UTI and Colitis * Pt has been rehydrated as reflected in labs. * Poor appetite present. * Start Megace 400 mg daily. * Move out of IMU to tele floor * Continue PT and OT for strengthening. (6) Vaginal vault prolapse: Code(s): N81.9 - Female genital prolapse, unspecified Status: Chronic Assessment and Plan: Chronic problem pt
--- NOTE | 2024-06-21 12:51 | PM.IMPN ---
Progress Note: A&P Assessment and Plan (1) Colitis: Code(s): K52.9 - Noninfective gastroenteritis and colitis, unspecified Status: Acute Assessment and Plan: CT abdo shows colitis Add iv zosyn and oral flagyl await stool culture pt to start on iv fluids and continue iv abx 06/18- stool cultures still pending slight increase in wbc, afebrile 06/19- wbc trending down 06/20/24: WBC's uptrending from 13.6-->15.9 today. Change Zosyn to Levaquin based on appearance of CXR and Urine cultures as well as presence of colitis. Continue to trend labs and VS. Not currently meeting sepsis criteria. Flagyl restarted. 06/21/24: Interval decrease in WBCs from 15.9-->13.3 today. Continue Levaquin and Flagyl. Continue to trend labs and VS. Not currently meeting sepsis criteria. (2) Altered mental status: Qualifiers: Altered mental status type: unspecified Qualified Code(s): R41.82 - Altered mental status, unspecified Code(s): R41.82 - Altered mental status, unspecified Status: Acute Assessment and Plan: Likely due to dehydration and malnutrition Watch for improvement Ct head is negative unlikely due to neurology problem - continue to monitor, IV fluids, strick I/O - 06/18- she is a little better this am- but drowsy and very tired. Not much rest overnight as her roommate kept her awake- discussed with using staff about moving confused pt out or switching rooms to ensure adequate rest 06/19- resting now this am, anticipate moving pt out of IMU if improved with mental status 06/20/24: Alert and oriented, but very tired. Continue IMU with uptrend in WBC's. Continue I&O Continue IVF Trend labs 06/21/24: Continues to be fatigued and weak but stable. When aroused, answers questions appropriately. Continue to trend labs and abx. (3) Abnormal urinalysis: Code(s): R82.90 - Unspecified abnormal findings in urine Status: Acute Assessment and Plan: Suspected UTI await UC Pt is on iv zosyn history of vaginal prolapse 06/20/24: Urine is reflecting acute UTI. Urine cx grew out E.coli and Staph aureus. Keep follow up appointment with POLISHER AND SANDER. Abx changed to levaquin based on sensitivities. Continue to monitor and trend labs and VS. 06/21/24: Continue Levaquin for UTI of E.coli and staph aureus MRSA swab negative. Not meeting Sepsis criteria. (4) Pneumonia: Code(s): J18.9 - Pneumonia, unspecified organism Status: Acute Assessment and Plan: As per CXR dated 06/19/24 pt has left basilar consolidation. Abx changed to Levaquin. Continue current treatment and monitoring. Continue IS Blood cultures negative to date. Not meeting sepsis criteria. Sputum culture ordered. 06/21/24: VS stable including oxygen sats. Not meeting sepsis criteria. Continue IS Obtain sputum cx Blood cultures negative. Day #2 of Levaquin. (5) Generalized weakness: Code(s): R53.1 - Weakness Status: Acute Assessment and Plan: in setting of acute PNA, UTI and Colitis Pt has been rehydrated as reflected in labs. Poor appetite present. Start Megace 400 mg daily. Move out of IMU to [facility] floor Continue PT and OT for strengthening. (6) Vaginal vault prolapse: Code(s): N81.9 - Female genital prolapse, unspecified Status: Chronic Assessment and Plan: Chronic problem pt sees PRODUCTION MACHINIST here 06/18/26: Keep follow up appointment with PRODUCTION MACHINIST. (7) Cystocele: Status: Chronic Assessment and Plan: pt sees PRODUCTION MACHINIST pt is on oxybutynin 06/20/24: Keep upcoming appointment with PRODUCTION MACHINIST. (8) PAD (peripheral artery disease): Code(s): I73.9 - Peripheral vascular disease, unspecified Status: Chronic Assessment and Plan: chronic problem pt takes medications for PAD 06/20/24: Continue home medications. (9) Essential (primary) hypertension: Code(s): I10 - [place]se
--- NOTE | 2024-06-21 13:11 | PCPTNOTE ---
On 06/21/24, the student, [Dayana Encarnacion], provided care and completed [facility] documentation on this patient. I have reviewed the student's documentation and agree with the findings.
[2024-06-21] MEDS: lisinopriL 20 MG TABLET 40 MG PO (13:27)
[2024-06-21] MEDS: amLODIPine BESYLATE 5 MG TABLET PO (13:27)
[2024-06-21] MEDS: ATORVASTATIN 10 MG TABLET PO (13:27)
[2024-06-21] MEDS: hydroCHLOROthiazide 12.5 MG CAPSULE PO (13:28)
[2024-06-21] MEDS: GABAPENTIN 300 MG CAPSULE PO (13:28)
[2024-06-21] MEDS: FERROUS SULFATE 325 MG TABLET DR BY MOUTH (13:28)
[2024-06-21] MEDS: SODIUM CHLORIDE 0.9% IV 1,000 ML 100 ML IV CONT ×2 (14:22→22:23)
[2024-06-21] MEDS: MEGESTROL ACETATE (*CHEMO) ORAL SUSP 40 MG/ML SYR 400 MG PO (16:00)
--- NOTE | 2024-06-21 22:46 | PC.NURSE ---
Pt to move to second medical room 242. Notified pt's spouse, Taj [phone], of pt transfer.
--- NOTE | 2024-06-21 23:22 | PC.NURSE ---
Report called to [facility] DMITRY Yates.
--- NOTE | 2024-06-21 23:37 | PC.NURSE ---
This patient, Kate Mccormick, was transferred to [[address] [place] [address] ] on 06/21/24 at 2338. Personal belongings sent with patient. Report given to [DMITRY Yates ]. Appropriate documentation sent with patient.
--- NOTE | 2024-06-21 23:50 | PC.NURSE ---
Received patient from IMU. Patient comfortable in bed, denies any pain or needs at this time. Does not verbally answer questions but nodded head yes or no. Belongings with patient in bag.
[2024-06-22] VITALS (8 sets, daily range): BP systolic 128–130; BP diastolic 62–66; PULSE 74–90; RESP 16; TEMP 36.4–36.5; O2SAT 97
[2024-06-22] MEDS: metroNIDAZOLE 500 MG/ISO 100ML 500 MG/100 ML BAG 100 MG IVPB ×2 (02:33→09:18)
[2024-06-22 05:53] LABS: Basophils Percent Auto 0.2 % (0.2-1.2); Eosinophils Absolute Auto 0.1 K/mm3 (0-0.3); Eosinophils Percent Auto 0.6 % (0-4.4); Hematocrit 32.3 % (37.0-47.0); Hemoglobin 10.9 g/dL (12.0-15.0); Immature Granulocyte Absolute 0.06 K/mm3 (0.00-0.031); Immature Granulocyte Percent A 0.5 % (0-0.5); Lymphocytes Absolute Auto 1.38 K/mm3 (0.9-3.2); Lymphocytes Percent Auto 11.6 % (18.3-44.2); Mean Corpuscular HGB Conc 33.7 g/dl (32-36); Mean Corpuscular Hemoglobin 30.5 pg (26-34); Mean Corpuscular Volume 90.5 fl (80-100); Monocytes Absolute Auto 1.1 K/mm3 (0.1-0.6); Monocytes Percent Auto 8.8 % (2.6-8.5); Neutrophils Absolute Auto 9.3 K/mm3 (1.3-6.7); Neutrophils Percent Auto 78.3 % (45.5-73.1); Platelet Count Result 280 k/mm3 (150-375); Red Blood Count 3.57 M/mm3 (4.2-5.4); Red Cell Distribution Width 13.1 % (11.5-14.5); White Blood Count 11.9 K/mm3 (4.5-10.0)
[2024-06-22 06:02] LABS: Alanine Aminotransferase 43 U/L (6-35); Albumin Level 3.1 g/dL (3.5-5.1); Alkaline Phosphatase 58 U/L (38-126); Anion Gap 11 mmol/L (4-12); Aspartate Amino Transferase 34 U/L (14-36); Bilirubin,Total 0.2 mg/dL (0.2-1.3); Blood Urea Nitrogen 9 mg/dL (7-17); Carbon Dioxide 21 mmol/L (22-30); Chloride 104 mmol/L (98-107); Estimated CRCL calculation 65 ml/min; Estimated Glomerular Filt Rate > 60; Glucose 96 mg/dL (65-110); Magnesium 1.5 mg/dL (1.6-2.3); Potassium 2.9 mmol/L (3.4-5.0); Sodium 136 mmol/L (137-145)
[2024-06-22] MEDS: FERROUS SULFATE 325 MG TABLET DR BY MOUTH (09:16)
[2024-06-22] MEDS: hydroCHLOROthiazide 12.5 MG CAPSULE PO (09:16)
[2024-06-22] MEDS: ATORVASTATIN 10 MG TABLET PO (09:16)
[2024-06-22] MEDS: MULTIVITAMINS THERAPEUTIC TAB (*BKC) 1 TABLET PO (09:16)
[2024-06-22] MEDS: CHOLECALCIFEROL 1,000 UNITS TABLET 2000 UNITS PO (09:16)
[2024-06-22] MEDS: lisinopriL 20 MG TABLET 40 MG PO (09:16)
[2024-06-22] MEDS: ACETAMINOPHEN 325 MG TABLET 650 MG PO (09:17)
[2024-06-22] MEDS: ENOXAPARIN 40 MG/0.4 ML SYRINGE SUB-Q (09:17)
[2024-06-22] MEDS: GABAPENTIN 300 MG CAPSULE PO (09:17)
[2024-06-22] MEDS: amLODIPine BESYLATE 5 MG TABLET PO (09:17)
[2024-06-22] MEDS: CALCIUM CARBONATE (OSCAL) 250 MG TABLET PO (09:18)
[2024-06-22] MEDS: MEGESTROL ACETATE (*CHEMO) ORAL SUSP 40 MG/ML SYR 400 MG PO (09:18)
[2024-06-22] MEDS: SODIUM CHLORIDE 0.9% IV 1,000 ML 100 ML IV CONT ×2 (10:32→23:10)
[2024-06-22] MEDS: levoFLOXacin 750 MG/D5W 150 ML 750 MG/150 ML BAG 100 MG IVPB (10:32)
--- NOTE | 2024-06-22 11:48 | PCPTNOTE ---
Patient refused treatment this session. Patient sound asleep upon entering room, patient able to wake up enough to shake head no to physical therapy and fall back to sleep. Patient unable to be aroused again.
--- NOTE | 2024-06-22 14:18 | P.PNIM_ITS ---
Progress Note: A&P Assessment and Plan (1) Colitis: Code(s): K52.9 - Noninfective gastroenteritis and colitis, unspecified Status: Acute Assessment and Plan: CT abdo shows colitis Add iv zosyn and oral flagyl await stool culture pt to start on iv fluids and continue iv abx 06/18- stool cultures still pending slight increase in wbc, afebrile 06/19- wbc trending down 06/20/24: * WBC's uptrending from 13.6-->15.9 today. * Change Zosyn to Levaquin based on appearance of CXR and Urine cultures as well as presence of colitis. * Continue to trend labs and VS. * Not currently meeting sepsis criteria. * Flagyl restarted. 06/21/24: * Interval decrease in WBCs from 15.9-->13.3 today. * Continue Levaquin and Flagyl. * Continue to trend labs and VS. * Not currently meeting sepsis criteria. 06/22/24: - Diarrhea appears to have improved. - No episodes yet today. - IV antibiotics switched to PO. - Continue Megace and encourage with meals. - Die Fitter consulted for very poor PO intake. - Continue pain meds PRN but avoid narcotics. - Encourage with PT/OT treatment and out of bed. (2) Altered mental status: Qualifiers: Altered mental status type: unspecified Qualified Code(s): R41.82 - Altered mental status, unspecified Code(s): R41.82 - Altered mental status, unspecified Status: Acute Assessment and Plan: Likely due to dehydration and malnutrition Watch for improvement Ct head is negative unlikely due to neurology problem - continue to monitor, IV fluids, strick I/O - 06/18- she is a little better this am- but drowsy and very tired. Not much rest overnight as her roommate kept her awake- discussed with using staff about moving confused pt out or switching rooms to ensure adequate rest 06/19- resting now this am, anticipate moving pt out of IMU if improved with mental status 06/20/24: * Alert and oriented, but very tired. * Continue IMU with uptrend in WBC's. * Continue I&O * Continue IVF * Trend labs 06/21/24: * Continues to be fatigued and weak but stable. * When aroused, answers questions appropriately. * Continue to trend labs and abx. (3) Abnormal urinalysis: Code(s): R82.90 - Unspecified abnormal findings in urine Status: Acute Assessment and Plan: Suspected UTI await UC Pt is on iv zosyn history of vaginal prolapse 06/20/24: * Urine is reflecting acute UTI. * Urine cx grew out E.coli and Staph aureus. * Keep follow up appointment with QUALITY ASSURANCE QA LAB TECHNICIAN. * Abx changed to levaquin based on sensitivities. * Continue to monitor and trend labs and VS. 06/21/24: * Continue Levaquin for UTI of E.coli and staph aureus * MRSA swab negative. * Not meeting Sepsis criteria. (4) Pneumonia: Code(s): J18.9 - Pneumonia, unspecified organism Status: Acute Assessment and Plan: * As per CXR dated 06/19/24 pt has left basilar consolidation. * Abx changed to Levaquin. * Continue current treatment and monitoring. * Continue IS * Blood cultures negative to date. * Not meeting sepsis criteria. * Sputum culture ordered. 06/21/24: * VS stable including oxygen sats. * Not meeting sepsis criteria. * Continue IS * Obtain sputum cx * Blood cultures negative. * Day #2 of Levaquin. (5) Generalized weakness: Code(s): R53.1 - Weakness Status: Acute Assessment and Plan: * in setting of acute PNA, UTI and Colitis * Pt has been rehydrated as reflected in
--- NOTE | 2024-06-22 14:18 | PM.IMPN ---
Progress Note: A&P Assessment and Plan (1) Colitis: Code(s): K52.9 - Noninfective gastroenteritis and colitis, unspecified Status: Acute Assessment and Plan: CT abdo shows colitis Add iv zosyn and oral flagyl await stool culture pt to start on iv fluids and continue iv abx 06/18- stool cultures still pending slight increase in wbc, afebrile 06/19- wbc trending down 06/20/24: WBC's uptrending from 13.6-->15.9 today. Change Zosyn to Levaquin based on appearance of CXR and Urine cultures as well as presence of colitis. Continue to trend labs and VS. Not currently meeting sepsis criteria. Flagyl restarted. 06/21/24: Interval decrease in WBCs from 15.9-->13.3 today. Continue Levaquin and Flagyl. Continue to trend labs and VS. Not currently meeting sepsis criteria. 06/22/24: - Diarrhea appears to have improved. - No episodes yet today. - IV antibiotics switched to PO. - Continue Megace and encourage with meals. - Rn Hedis consulted for very poor PO intake. - Continue pain meds PRN but avoid narcotics. - Encourage with PT/OT treatment and out of bed. (2) Altered mental status: Qualifiers: Altered mental status type: unspecified Qualified Code(s): R41.82 - Altered mental status, unspecified Code(s): R41.82 - Altered mental status, unspecified Status: Acute Assessment and Plan: Likely due to dehydration and malnutrition Watch for improvement Ct head is negative unlikely due to neurology problem - continue to monitor, IV fluids, strick I/O - 06/18- she is a little better this am- but drowsy and very tired. Not much rest overnight as her roommate kept her awake- discussed with using staff about moving confused pt out or switching rooms to ensure adequate rest 06/19- resting now this am, anticipate moving pt out of IMU if improved with mental status 06/20/24: Alert and oriented, but very tired. Continue IMU with uptrend in WBC's. Continue I&O Continue IVF Trend labs 06/21/24: Continues to be fatigued and weak but stable. When aroused, answers questions appropriately. Continue to trend labs and abx. (3) Abnormal urinalysis: Code(s): R82.90 - Unspecified abnormal findings in urine Status: Acute Assessment and Plan: Suspected UTI await UC Pt is on iv zosyn history of vaginal prolapse 06/20/24: Urine is reflecting acute UTI. Urine cx grew out E.coli and Staph aureus. Keep follow up appointment with WELFARE WORKER. Abx changed to levaquin based on sensitivities. Continue to monitor and trend labs and VS. 06/21/24: Continue Levaquin for UTI of E.coli and staph aureus MRSA swab negative. Not meeting Sepsis criteria. (4) Pneumonia: Code(s): J18.9 - Pneumonia, unspecified organism Status: Acute Assessment and Plan: As per CXR dated 06/19/24 pt has left basilar consolidation. Abx changed to Levaquin. Continue current treatment and monitoring. Continue IS Blood cultures negative to date. Not meeting sepsis criteria. Sputum culture ordered. 06/21/24: VS stable including oxygen sats. Not meeting sepsis criteria. Continue IS Obtain sputum cx Blood cultures negative. Day #2 of Levaquin. (5) Generalized weakness: Code(s): R53.1 - Weakness Status: Acute Assessment and Plan: in setting of acute PNA, UTI and Colitis Pt has been rehydrated as reflected in labs. Poor appetite present. Start Megace 400 mg daily. Move out of IMU to tele floor Continue PT and OT for strengthening. (6) Vaginal vault prolapse: Code(s): N81.9 - Female genital prolapse, unspecified Status: Chronic Assessment and Plan: Chronic problem pt sees CUSTOMER SERVICE DRIVER here 06/18/26: Keep follow up appointment with CUSTOMER SERVICE DRIVER. (7) Cystocele: Status: Chronic Assessment and Plan: pt sees CUSTOMER SERVICE DRIVER pt is on oxybutynin 06/20/24: Keep upcoming appointment with CUSTOMER SERVICE DRIVER. (8)
--- NOTE | 2024-06-22 15:03 | PCPTNOTE ---
Attempted to see patient for PT, however patient refused. Nurse's intensive care nurse in room working with patient, nurse's intensive care nurse asked patient for this therapist if patient wanted to work with PT, patient stated no. .
[2024-06-22 16:39] LABS: Red Blood Cell Folate 719 ng/mL RBC (>280)
[2024-06-22] MEDS: metroNIDAZOLE 500 MG TABLET PO (21:19)
[2024-06-22] MEDS: MAGNESIUM OXIDE 400 MG TABLET PO (21:19)
[2024-06-23] VITALS (9 sets, daily range): BP systolic 109–151; BP diastolic 44–61; PULSE 68–93; RESP 18–28; TEMP 36.9–37.6; O2SAT 96–100
[2024-06-23] MEDS: metroNIDAZOLE 500 MG TABLET PO ×3 (05:40→20:48)
[2024-06-23 05:47] LABS: Basophils Absolute Auto 0.1 K/mm3 (0.0-0.1); Basophils Percent Auto 0.5 % (0.2-1.2); Eosinophils Absolute Auto 0.1 K/mm3 (0-0.3); Eosinophils Percent Auto 0.9 % (0-4.4); Hematocrit 30.4 % (37.0-47.0); Hemoglobin 10.3 g/dL (12.0-15.0); Immature Granulocyte Absolute 0.05 K/mm3 (0.00-0.031); Immature Granulocyte Percent A 0.5 % (0-0.5); Lymphocytes Absolute Auto 1.62 K/mm3 (0.9-3.2); Lymphocytes Percent Auto 16.3 % (18.3-44.2); Mean Corpuscular HGB Conc 33.9 g/dl (32-36); Mean Corpuscular Hemoglobin 30.4 pg (26-34); Mean Corpuscular Volume 89.7 fl (80-100); Mean Platelet Volume 10.9 fl (7.4-10.4); Monocytes Percent Auto 10.3 % (2.6-8.5); Neutrophils Absolute Auto 7.1 K/mm3 (1.3-6.7); Neutrophils Percent Auto 71.5 % (45.5-73.1); Platelet Count Result 282 k/mm3 (150-375); Red Blood Count 3.39 M/mm3 (4.2-5.4); Red Cell Distribution Width 13.5 % (11.5-14.5); White Blood Count 9.9 K/mm3 (4.5-10.0)
[2024-06-23 05:56] LABS: Alanine Aminotransferase 32 U/L (6-35); Alkaline Phosphatase 55 U/L (38-126); Anion Gap 8 mmol/L (4-12); Aspartate Amino Transferase 23 U/L (14-36); Bilirubin,Total 0.2 mg/dL (0.2-1.3); Blood Urea Nitrogen 9 mg/dL (7-17); Calcium 9.1 mg/dL (8.4-10.2); Carbon Dioxide 23 mmol/L (22-30); Chloride 104 mmol/L (98-107); Estimated CRCL calculation 57 ml/min; Estimated Glomerular Filt Rate > 60; Glucose 91 mg/dL (65-110); Magnesium 1.5 mg/dL (1.6-2.3); Potassium 2.9 mmol/L (3.4-5.0); Sodium 135 mmol/L (137-145)
[2024-06-23] MEDS: ACETAMINOPHEN 325 MG TABLET 650 MG PO (06:24)
[2024-06-23] MEDS: SODIUM CHLORIDE 0.9% IV 1,000 ML 100 ML IV CONT ×2 (09:44→20:51)
[2024-06-23] MEDS: POTASSIUM CHLORIDE INJ 40 MEQ in SODIUM CHLORIDE 0.9% IV 500 ML 130 MEQ IVPB (09:44)
[2024-06-23] MEDS: FERROUS SULFATE 325 MG TABLET DR BY MOUTH (09:45)
[2024-06-23] MEDS: amLODIPine BESYLATE 5 MG TABLET PO (09:45)
[2024-06-23] MEDS: CHOLECALCIFEROL 1,000 UNITS TABLET 2000 UNITS PO (09:45)
[2024-06-23] MEDS: MULTIVITAMINS THERAPEUTIC TAB (*BKC) 1 TABLET PO (09:45)
[2024-06-23] MEDS: ENOXAPARIN 40 MG/0.4 ML SYRINGE SUB-Q (09:45)
[2024-06-23] MEDS: MAGNESIUM OXIDE 400 MG TABLET PO ×2 (09:45→20:48)
[2024-06-23] MEDS: hydroCHLOROthiazide 12.5 MG CAPSULE PO (09:45)
[2024-06-23] MEDS: GABAPENTIN 300 MG CAPSULE PO (09:45)
[2024-06-23] MEDS: lisinopriL 20 MG TABLET 40 MG PO (09:45)
[2024-06-23] MEDS: ATORVASTATIN 10 MG TABLET PO (09:45)
[2024-06-23] MEDS: MEGESTROL ACETATE (*CHEMO) ORAL SUSP 40 MG/ML SYR 400 MG PO (09:45)
[2024-06-23] MEDS: ONDANSETRON INJ 4 MG/2 ML VIAL IV PUSH (10:01)
--- NOTE | 2024-06-23 11:38 | P.PNIM_ITS ---
Progress Note: A&P Assessment and Plan (1) Colitis: Code(s): K52.9 - Noninfective gastroenteritis and colitis, unspecified Status: Acute Assessment and Plan: CT abdo showed colitis. - Diarrhea appears much improved. - IV antibiotics switched to PO. - Continue Megace and encourage with meals. - Sandwich And Drink Cart Operator consulted for very poor PO intake. - Continue pain meds PRN but avoid narcotics. - Encourage with PT/OT treatment, staying out of bed. (2) Altered mental status: Qualifiers: Altered mental status type: unspecified Qualified Code(s): R41.82 - Altered mental status, unspecified Code(s): R41.82 - Altered mental status, unspecified Status: Acute Assessment and Plan: Possibly due to dehydration and malnutrition vs depression vs other. When aroused, answers questions appropriately. Continues to be fatigued and weak but stable. Ct head is negative unlikely due to neurology problem Continue to monitor for acute neuro changes. (3) Abnormal urinalysis: Code(s): R82.90 - Unspecified abnormal findings in urine Status: Acute Assessment and Plan: Urine culture grew E.Coli and Staph. Aureus. Currently on Levaquin and Flagyl per sensitivities. Continue PO abx for now. (4) Pneumonia: Code(s): J18.9 - Pneumonia, unspecified organism Status: Acute Assessment and Plan: * As per CXR dated 06/19/24 pt has left basilar consolidation. * Abx changed to Levaquin. * Continue current treatment and monitoring. * Continue to encourage with IS use. * Blood cultures negative to date. (5) Generalized weakness: Code(s): R53.1 - Weakness Status: Acute Assessment and Plan: * in setting of acute PNA, UTI and Colitis, * Possibly depressed as well, pt very withdrawn. * Very poor appetite and not participating in therapy. * Continue Megace 400 mg daily. * Continue to encourage with PT and OT for strengthening. * Awaiting placement to SNF. (6) Essential (primary) hypertension: Code(s): I10 - Essential (primary) hypertension Status: Chronic Assessment and Plan: chronic and stable on medications Continue norvasc, lasix, lisinopril. * Currently stable. (7) Vaginal vault prolapse: Code(s): N81.9 - Female genital prolapse, unspecified Status: Chronic Assessment and Plan: Chronic problem pt sees QUALITY ASSURANCE/R&D LAB TECHNICIAN here * Keep follow up appointment with QUALITY ASSURANCE/R&D LAB TECHNICIAN. (8) Cystocele: Status: Chronic Assessment and Plan: pt sees QUALITY ASSURANCE/R&D LAB TECHNICIAN pt is on oxybutynin * Keep upcoming appointment with QUALITY ASSURANCE/R&D LAB TECHNICIAN. (9) PAD (peripheral artery disease): Code(s): I73.9 - Peripheral vascular disease, unspecified Status: Chronic Assessment and Plan: chronic problem pt takes medications for PAD * Continue home medications. (10) Chronic kidney disease, stage 3 (moderate): Qualifiers: Chronic kidney disease stage 3 subtype: stage 3a (GFR 45-59) Qualified Code(s): N18.31 - Chronic kidney disease, stage 3a Code(s): N18.3 - Chronic kidney disease, stage 3 (moderate) Status: Chronic Assessment and Plan: continue fluids watch UO and BMp * Renal function remains stable. * Continue to monitor closely. (11) Chronic low back pain with sciatica: Code(s): M54.40 - Lumbago with sciatica, unspecified side; G89.29 - Other chronic pain Status: Acute Assessment and Plan: * No s/s of withdrawl. * Pt continually rates her pain at a 3/10. * Deferring any re
--- NOTE | 2024-06-23 11:38 | PM.IMPN ---
Progress Note: A&P Assessment and Plan (1) Colitis: Code(s): K52.9 - Noninfective gastroenteritis and colitis, unspecified Status: Acute Assessment and Plan: CT abdo showed colitis. - Diarrhea appears much improved. - IV antibiotics switched to PO. - Continue Megace and encourage with meals. - Nurse [employer] consulted for very poor PO intake. - Continue pain meds PRN but avoid narcotics. - Encourage with PT/OT treatment, staying out of bed. (2) Altered mental status: Qualifiers: Altered mental status type: unspecified Qualified Code(s): R41.82 - Altered mental status, unspecified Code(s): R41.82 - Altered mental status, unspecified Status: Acute Assessment and Plan: Possibly due to dehydration and malnutrition vs depression vs other. When aroused, answers questions appropriately. Continues to be fatigued and weak but stable. Ct head is negative unlikely due to neurology problem Continue to monitor for acute neuro changes. (3) Abnormal urinalysis: Code(s): R82.90 - Unspecified abnormal findings in urine Status: Acute Assessment and Plan: Urine culture grew E.Coli and Staph. Aureus. Currently on Levaquin and Flagyl per sensitivities. Continue PO abx for now. (4) Pneumonia: Code(s): J18.9 - Pneumonia, unspecified organism Status: Acute Assessment and Plan: As per CXR dated 06/19/24 pt has left basilar consolidation. Abx changed to Levaquin. Continue current treatment and monitoring. Continue to encourage with IS use. Blood cultures negative to date. (5) Generalized weakness: Code(s): R53.1 - Weakness Status: Acute Assessment and Plan: in setting of acute PNA, UTI and Colitis, Possibly depressed as well, pt very withdrawn. Very poor appetite and not participating in therapy. Continue Megace 400 mg daily. Continue to encourage with PT and OT for strengthening. Awaiting placement to SNF. (6) Essential (primary) hypertension: Code(s): I10 - Essential (primary) hypertension Status: Chronic Assessment and Plan: chronic and stable on medications Continue norvasc, lasix, lisinopril. Currently stable. (7) Vaginal vault prolapse: Code(s): N81.9 - Female genital prolapse, unspecified Status: Chronic Assessment and Plan: Chronic problem pt sees ELECTRICIAN RESEARCH here Keep follow up appointment with ELECTRICIAN RESEARCH. (8) Cystocele: Status: Chronic Assessment and Plan: pt sees ELECTRICIAN RESEARCH pt is on oxybutynin Keep upcoming appointment with ELECTRICIAN RESEARCH. (9) PAD (peripheral artery disease): Code(s): I73.9 - Peripheral vascular disease, unspecified Status: Chronic Assessment and Plan: chronic problem pt takes medications for PAD Continue home medications. (10) Chronic kidney disease, stage 3 (moderate): Qualifiers: Chronic kidney disease stage 3 subtype: stage 3a (GFR 45-59) Qualified Code(s): N18.31 - Chronic kidney disease, stage 3a Code(s): N18.3 - Chronic kidney disease, stage 3 (moderate) Status: Chronic Assessment and Plan: continue fluids watch UO and BMp Renal function remains stable. Continue to monitor closely. (11) Chronic low back pain with sciatica: Code(s): M54.40 - Lumbago with sciatica, unspecified side; G89.29 - Other chronic pain Status: Acute Assessment and Plan: No s/s of withdrawl. Pt continually rates her pain at a 3/10. Deferring any re-initiation of her Morphine or other narcotics. Not requiring much pain meds at this time. Time Spent With Patient Time with patient: 25 - 35 minutes Subjective Date/time seen: 06/23/24 10:30 Interval history: Patient presented to the the emergency department via EMS from home with her family at for nausea and vomiting, diarrhea and altered mental status. Imaging included ct head which was negative ct abdo shows lid colonic wall thi
[2024-06-23] MEDS: levoFLOXacin 750 MG TABLET PO (17:21)
[2024-06-23] MEDS: OPTI-GEN TAB 1 TABLET PO (17:27)
[2024-06-24] VITALS (7 sets, daily range): BP systolic 113–133; BP diastolic 50–53; PULSE 70–84; RESP 16–20; TEMP 36.9–37; O2SAT 96–98
[2024-06-24 05:36] LABS: Basophils Percent Auto 0.4 % (0.2-1.2); Eosinophils Absolute Auto 0.1 K/mm3 (0-0.3); Eosinophils Percent Auto 1.6 % (0-4.4); Hematocrit 30.3 % (37.0-47.0); Hemoglobin 10.1 g/dL (12.0-15.0); Immature Granulocyte Absolute 0.04 K/mm3 (0.00-0.031); Immature Granulocyte Percent A 0.5 % (0-0.5); Lymphocytes Absolute Auto 1.15 K/mm3 (0.9-3.2); Lymphocytes Percent Auto 15.2 % (18.3-44.2); Mean Corpuscular HGB Conc 33.3 g/dl (32-36); Mean Corpuscular Hemoglobin 30.5 pg (26-34); Mean Corpuscular Volume 91.5 fl (80-100); Mean Platelet Volume 10.4 fl (7.4-10.4); Monocytes Absolute Auto 0.7 K/mm3 (0.1-0.6); Monocytes Percent Auto 9.5 % (2.6-8.5); Neutrophils Absolute Auto 5.5 K/mm3 (1.3-6.7); Neutrophils Percent Auto 72.8 % (45.5-73.1); Platelet Count Result 275 k/mm3 (150-375); Red Blood Count 3.31 M/mm3 (4.2-5.4); Red Cell Distribution Width 14.1 % (11.5-14.5); White Blood Count 7.6 K/mm3 (4.5-10.0)
[2024-06-24] MEDS: metroNIDAZOLE 500 MG TABLET PO ×2 (05:56→14:33)
[2024-06-24] MEDS: ACETAMINOPHEN 325 MG TABLET 650 MG PO ×2 (06:33→14:30)
[2024-06-24 08:14] LABS: Anion Gap 5 mmol/L (4-12); Blood Urea Nitrogen 9 mg/dL (7-17); Calcium 8.9 mg/dL (8.4-10.2); Carbon Dioxide 24 mmol/L (22-30); Chloride 108 mmol/L (98-107); Estimated CRCL calculation 57 ml/min; Estimated Glomerular Filt Rate > 60; Glucose 86 mg/dL (65-110); Potassium 3.4 mmol/L (3.4-5.0); Sodium 137 mmol/L (137-145)
[2024-06-24] MEDS: ENOXAPARIN 40 MG/0.4 ML SYRINGE SUB-Q (09:41)
[2024-06-24] MEDS: TIZANIDINE HCL 2 MG TABLET PO (09:47)
[2024-06-24 10:52] LABS: Glucose Point of Care 250 mg/dl (65-105)
--- NOTE | 2024-06-24 11:03 | PCNFU ---
Nutrition Follow-Up Complete: Inadequate energy intake related to appetite and current mental status as evidenced by pt not participating in verbal discussion or feeding. goal: PO intake greater than 50% Patient not meeting goal at this time. Will continue current goal. Pt current nutrition is Heart Healthy with Enlive diet supplements. Last recorded weight is 62.8 kg, down from 63 kg on admit. Bowel Motility: +BM reported 06/24 Labs Reviewed: Hct 30.3, Hgb 10.1 Meds Noted:Lovenox, Megace,Flagyl. Skin: WNL Additional Notes: Patient remains on a heart healthy diet, 10% report for breakfast. She has been eating very little, Megace started for appetite stimulant. Ensure Enlive providing an additional 350 kcals and 20 gm protein. PO intake encouraged. Agree with diet orders. Monitor intake, wt, labs. Follow up in 5 days.
--- NOTE | 2024-06-24 11:12 | PC.NURSE ---
1035 went in room to see patient and she was asleep. Patient did not respond when name was called. Visitors in room. No respiratory distress noted. Name was called several times with no response and then light sternal rub applied and patient responded easily but did not want to open her eyes. Patient with generalized weakness. Glucose checked and was 250 at 1040, BP 116/53, HR 84, o2 sats on room air 97%. Patient appeared sad and continued to refuse medications and all other care. Vania Vee was called and made aware of episode and continue refusal of medications. NNO. Will continue to encourage medication compliance and activity level.
--- NOTE | 2024-06-24 11:16 | PC.NURSE ---
0930 attempted to give patient medication, patient is refusing to work with therapy and refusing to respond verbally or take meds. Responds quickly with sternal rub. At 0730 patient needed to use restroom and was willing to verbally respond and get up to bathroom with ayaan parnell. Will attempt medications again in an hour 1030 patient still refusing medications, provider aware
[2024-06-24] MEDS: SODIUM CHLORIDE 0.9% IV 1,000 ML 100 ML IV CONT (11:44)
--- NOTE | 2024-06-24 13:39 | PM.DS ---
DS: Admitting Diagnosis Discharge Date 06/24/2024 Admitting Diagnosis Colitis DS: Discharge Diagnosis Discharge Diagnosis (1) Colitis: Code(s): K52.9 - Noninfective gastroenteritis and colitis, unspecified Status: Acute Assessment and Plan: CT abdo showed colitis. - Diarrhea resolved with IV antibiotics prior to discharge. (2) Altered mental status: Qualifiers: Altered mental status type: unspecified Qualified Code(s): R41.82 - Altered mental status, unspecified Code(s): R41.82 - Altered mental status, unspecified Status: Acute Assessment and Plan: Mentation appears normal but patient with episodes where she doesn't respond to anyone though awake. Appears to be possibly secondary to depression vs possibly inbuilt anger from home narcotics discontinuation. Will discharge on low-dose citalopram. (3) Abnormal urinalysis: Code(s): R82.90 - Unspecified abnormal findings in urine Status: Acute Assessment and Plan: Urine culture grew E.Coli and Staph. Aureus. Completed Levaquin and Flagyl treatment. (4) Pneumonia: Code(s): J18.9 - Pneumonia, unspecified organism Status: Acute Assessment and Plan: As per CXR dated 06/19/24 pt had left basilar consolidation. Treated with Levaquin. Blood cultures negative to date. (5) Generalized weakness: Code(s): R53.1 - Weakness Status: Acute Assessment and Plan: in setting of acute PNA, UTI and Colitis, Possibly depressed as well, pt very withdrawn. Very poor appetite and not participating in therapy. Continue Megace 400 mg daily. PT and OT services offered. Pt being discharged to SNF for continued rehab placement. (6) Essential (primary) hypertension: Code(s): I10 - Essential (primary) hypertension Status: Chronic Assessment and Plan: Chronic and stable on norvasc, lasix, lisinopril. (7) Vaginal vault prolapse: Code(s): N81.9 - Female genital prolapse, unspecified Status: Chronic Assessment and Plan: Chronic and pt will f/u with RECONCILIATION MANAGER outpatient. (8) Cystocele: Status: Chronic Assessment and Plan: pt sees RECONCILIATION MANAGER pt is on oxybutynin Keep upcoming appointment with RECONCILIATION MANAGER. (9) PAD (peripheral artery disease): Code(s): I73.9 - Peripheral vascular disease, unspecified Status: Chronic Assessment and Plan: chronic problem pt takes medications for PAD Continue home medications. (10) Chronic kidney disease, stage 3 (moderate): Qualifiers: Chronic kidney disease stage 3 subtype: stage 3a (GFR 45-59) Qualified Code(s): N18.31 - Chronic kidney disease, stage 3a Code(s): N18.3 - Chronic kidney disease, stage 3 (moderate) Status: Chronic Assessment and Plan: Stable inpatient. (11) Chronic low back pain with sciatica: Code(s): M54.40 - Lumbago with sciatica, unspecified side; G89.29 - Other chronic pain Status: Acute Assessment and Plan: Chronic. Continue pain meds PRN. (12) Chronic, continuous use of opioids: Code(s): F11.90 - Opioid use, unspecified, uncomplicated Status: Acute DS: Summary Hospital Course Hospital Course: Patient was brought in to the ER with reports of nausea, vomiting and diarrhea. Family also reported that patient was not talking or eating at home. Patient had been seen in the ER 2 days prior to this presentation and had negative labs. She was discharged home after IV fluids in the ER but returned in 2 days. Patient was started on antibiotics for possible bacterial diarrhea that improved and resolved prior to discharge. She also developed a UTI during her hospital stay that was treated during her hospitalization. Pt was noted to be weak and had PT/OT treatment, who recommended SNF placement for safety purposes. Patient had episodes where she was becoming unresponsive to staff but was noted to be alert
[2024-06-24] MEDS: levoFLOXacin 750 MG TABLET PO (14:40)
--- NOTE | 2024-06-24 15:44 | PC.NURSE ---
Patient asleep in bed with family at bedside. Patient continues intermittent episodes of being fully awake, arousable to name and then non arousable to name but easily awakened to stimuli and will respond stop, open eyes and close back immediately. Patient has been up out of bed today x2 from bed to bathroom and back to bed with use of gait belt and ayaan steady. Patient voided and BM x2. Patient discharge/transfer in process to [facility] with report given to Nurse Hogan at 1548. Family will transport. IV removed. Will continue with transfer/discharge process as ordered.
--- NOTE | 2024-06-24 16:26 | PC.NURSE ---
Patient awake, telemetry box and chest stickers removed. No redness noted. Patient assisted into street clothes, stood with assist and was able to pivot to w/c with use of gait belt. Patient escorted to main entrance and assisted in car safely as witnessed by this nurse and PCT Blaire. All belongs returned. Discharge process completed.
== END 2024-06-24 16:22 | DRG 391 ==
LOC: ANHED 22:24 → ANHIMU 22:39 → ANH2MED 06-24 14:36 → ANHIMU 06-29 12:45
PROVIDERS: Family Medicine; Nurse Practitioner; Nurse Practitioner Adult Health; Student in an Organized Health Care Education/Training Program; Admitting Provider Internal Medicine; Emergency Provider Physician Assistant; PCP Family Medicine; Visit Provider Nurse Practitioner Adult Health
DX: K52.9 Noninfective gastroenteritis and colitis, unspecified (principal); J18.9 Pneumonia, unspecified organism; N39.0 Urinary tract infection, site not specified; R41.82 Altered mental status, unspecified; B96.20 Unspecified Escherichia coli [E. coli] as the cause of diseases classified elsewhere; B95.61 Methicillin susceptible Staphylococcus aureus infection as the cause of diseases classified elsewhere; E11.51 Type 2 diabetes mellitus with diabetic peripheral angiopathy without gangrene; E11.22 Type 2 diabetes mellitus with diabetic chronic kidney disease; G89.29 Other chronic pain; I35.0 Nonrheumatic aortic (valve) stenosis; I12.9 Hypertensive chronic kidney disease with stage 1 through stage 4 chronic kidney disease, or unspecified chronic kidney disease; I73.9 Peripheral vascular disease, unspecified; M54.9 Dorsalgia, unspecified; N18.32 Chronic kidney disease, stage 3b; N81.9 Female genital prolapse, unspecified; Z79.891 Long term (current) use of opiate analgesic
CPT/HCPCS: 36415; 36600; 70450; 71045; 74177; 80048; 80053; 81001; 82140; 82375; 82550; 82607; 82747; 82805; 82948; 83050; 83540; 83550; 83605; 83735; 84132; 84443; 84484; 85025; 85027; 85610; 85730; 87040; 87045; 87077; 87086; 87088; 87181; 87186; 87427; 87449; 87637; 87641; 93005; 96361; 96365; 96367; 96375; 97110; 97161; 97162; 97166; 97530; 99285; A9270; G0378; J1650; J1836; J1885; J1956; J2270; J2310; J2405; J2543; J3475; J3480; J7030; J7040; Q9967

== ENCOUNTER 2024-07-15 10:50 | Outpatient (CLI) | payer MEDICARE, SELFPAY ==
--- NOTE | ~2024-07-15 | US_ITS ---
EXAMINATION: US renal BI DATE: 07/15/2024 11:13 INDICATION: Acquired cyst of the kidney TECHNIQUE: Multiple ultrasound grayscale images of the kidneys were obtained. COMPARISON: None. FINDINGS: The right kidney measures 8.7 x 4.0 x 5.0 cm. The left kidney measures 8.5 x 3.5 x 4.9 cm. Exclusive of a 7.4 x 5.7 x 5.8 cm exophytic cyst arising from the lower pole of the left kidney. The kidneys de monstrate normal echogenicity. There is some cortical scarring at the upper pole of the right kidney There are a couple anechoic right renal cysts measuring up to 1.3 cm. There is no hydronephrosis in e ither kidney. No stones identified. The bladder is normal with bilateral ureteral jets visualized on color Doppler. IMPRESSION: 1. Bilateral renal cysts the largest on the right measuring up to 7.4 cm. No hydronephrosis. Reviewed, dictated and finalized at location B. IMPRESSION: 1. Bilateral renal cysts the largest on the right measuring up to 7.4 cm. No h ydronephrosis.
== END 2024-07-15 10:51 | disposition home or self-care (01) ==
LOC: GOSHIMG 10:51
PROVIDERS: PCP Family Medicine; Visit Provider Family Medicine
DX: N28.1 Cyst of kidney, acquired (principal)
CPT/HCPCS: 76775

== ENCOUNTER 2024-12-06 14:42 | Outpatient (CLI) | payer MEDICARE, SELFPAY ==
--- NOTE | 2024-12-06 15:01 | ECHO_ITS ---
Patient Info Name: Kate Mccormick Age: 74 years : 1950 Gender: Female Ht: 63 in Wt: 165 lbs BSA: 1.85 m2 HR: 81 bpm BP: 165 / 96 mmHg Heart Rhythm: Sinus Rhythm Technical Quality: Good Exam Date: 12/06/2024 3:08 PM Exam Location: Echo Lab Patient Status: Outpatient Admit Date: 12/06/2024 Staff Ordering Physician: Randi Kelley MD Pharmacy Student: Clare To RDCS Attending Provider: Randi Kelley MD Referring Physician: Warren GRESHAM; Exam Type: CA echo doppler color flow Study Info Indications I35.0 - Nonrheumatic aortic (valve) stenosis Complete two-dimensional, color flow and Doppler transthoracic echocardiogram is performed. Summary 1. Complete two-dimensional, color flow and Doppler transthoracic echocardiogram is performed. 2. Left ventricular chamber dimension is normal. 3. Left ventricular systolic function is normal, estimated at 60-65%. 4. The left ventricular diastolic function is grade I diastolic dysfunction. 5. E/e' 10 is mildly elevated. 6. Left atrial chamber dimension is moderately enlarged. 7. The aortic valve is not well visualized. Cannot determine number of aortic valve leaflets. 8. There is moderate aortic valve sclerosis. 9. There is moderate aortic valve stenosis with a peak velocity of 311 cm/s, mean gradient of 21 mmHg, and aortic valve area of 1.1 cm2. 10. There is trace aortic valve regurgitation. 11. The mitral valve has mildly calcified annulus. 12. There is trace mitral valve regurgitation. 13. There is trace tricuspid valve regurgitation. 14. No pulmonary hypertension, estimated pulmonary arterial systolic pressure is 31 mmHg. Left Ventricle E/e' 10 is mildly elevated. Left ventricular chamber dimension is normal. Left ventricular systolic function is normal, estimated at 60-65%. The left ventricular diastolic function is grade I diastolic dysfunction. Right Ventricle Right ventricular systolic function is normal and with normal TAPSE 2.3 cm. Right ventricular chamber dimension is normal. Left Atria Left atrial chamber dimension is moderately enlarged. Right Atria Right atrial chamber dimension is normal. Aortic Valve The aortic valve is not well visualized. Cannot determine number of aortic valve leaflets. There is moderate aortic valve sclerosis. There is moderate aortic valve stenosis with a peak velocity of 311 cm/s, mean gradient of 21 mmHg, and aortic valve area of 1.1 cm2. There is trace aortic valve regurgitation. Pulmonic Valve There is no pulmonic regurgitation. Mitral Valve The mitral valve has mildly calcified annulus. There is no mitral valve stenosis. There is trace mitral valve regurgitation. Tricuspid Valve There is trace tricuspid valve regurgitation. No pulmonary hypertension, estimated pulmonary arterial systolic pressure is 31 mmHg. Pericardium/Pleural There is no pericardial effusion. Inferior Vena Cava Normal inferior vena cava with >50% collapse upon inspiration consistent with normal right atrial pressure, 5 mmHg. Aorta The aortic root size at the sinus of Valsalva is normal. Left Ventricular Outflow Tract Name Value Normal LVOT 2D LVOT Diameter 2.0 cm LVOT Doppler LVOT Peak Gradient 5 mmHg LVOT Mean Gradient 3 mmHg LVOT VTI 24 cm LVOT VTI/AV VTI Ratio 0.4 LVOT Stroke Volume 75 ml LVOT CO 6.0 l/min LVOT CI 3.3 l/min/m2 Pulmonic Valve Name Value Normal RVOT Doppler RVOT Peak Gradient 2 mmHg PV Doppler PV Peak Gradient 3 mmHg Mitral Valve Name Value Normal MV Doppler MV Decel [place] 299 cm/s2 MV PHT 66 ms MV Area (PHT) 3.4 cm2 4.0-5.0 MV Diastolic Function MV E Peak Velocity 68 cm/s MV A Peak Velocity 114 cm/s MV E/A 0.6 MV Decel Time 226 ms MV Annular TDI MV E/e' (Septal) 14.4 <=8.0 MV E/e' (Lateral) 8.2 <=8.0 MV E/e' (Average) 11.3 Tricuspid Valve Name Value Normal TV Regurgitation Doppler TR Peak Velocity 255 cm/s TR Peak Gradient 26 mmHg Estimated PAP/RSVP RA Pressure 5 mmHg <=5 PA Systolic Pressure 31 mmHg <36 RV Systolic Pressure 31 mmHg <36 Aorta Name Value Normal Ascending Aorta Ao Root Diameter (MM) 2.8 cm Ao Root Diam Index (MM) 1.5 cm/m2 Aortic Valve Name Value Normal AV 2D/MM AV Cusp Sep (MM) 0.0 cm AV Doppler AV Peak Velocity 311 cm/s AV Peak Gradient 37 mmHg AV Mean Gradient 21 mmHg AV VTI 66 cm AV Area (Cont Eq VTI) 1.1 cm2 >=3.0 AV Area (Cont Eq [place]) 1.1 cm2 AV Regurgitation 2D LVOT Area 3.2 cm2 AV Regurgitation Doppler AR Decel Time 1,189 ms AR Decel [place] 434 cm/s2 AR PHT 345 ms Ventricles Name Value Normal LV Dimensions 2D/MM IVS Diastolic Thickness (2D) 0.9 cm 0.6-1.0 LVID Diastole (2D) 5.2 cm 3.8-5.2 LVIW Diastolic Thickness (2D) 0.9 cm 0.6-0.9 LVID Systole (2D) 3.0 cm 2.2-3.5 LVOT Diameter 2.0 cm LV Mass (2D Cubed) 165.70 g 67.00-162.00 LV Mass Index (2D Cubed) 90 g/m2 43-95 Relative Wall Thickness (2D) 0.36 LV Fractional Shortening/Ejection Fraction 2D/MM LV Fractional Shortening (2D) 42 % 27-45 LV EF (2D Teicholz) 73 % 54-74 LV Diastolic Volume (4C MOD) 94 ml LV EF (4C MOD) 64 % LV Diastolic Volume (2C MOD) 93 ml LV EF (2C MOD) 72 % LV Diastolic Volume (BP MOD) 96 ml 46-106 LV Diastolic Volume Index (BP MOD) 52 ml/m2 29-61 LV Systolic Volume (BP MOD) 31 ml 14-42 LV Systolic Volume Index (BP MOD) 17 ml/m2 8-24 LV EF (BP MOD) 68 % 54-74 LV Diastolic Length (4C) 8.0 cm LV Systolic Length (4C) 6.6 cm LV Stroke Volume (4C MOD) 61 ml Atria Name Value Normal LA Dimensions LA Dimension (MM) 3.4 cm 2.7-3.8 LA Volume (4C A-L) 60 ml LA Volume (BP A-L) 77 ml RA Dimensions RA Area (4C) 9.2 cm2 <=18.0 Report Signatures
--- OUTSIDE RECORDS SUMMARY | 2024-12-06 15:29 | XMS_ITS | Clinical Summary ---
Author Organization [facility] Address [facility] [place] [address] Care Team Providers Care Mill Manager Name Role Phone Randi Kelley MD Primary Care Provider [phone] Encounters Date Type Department Care Team Description 11/29/2024 11:45 AM LINE AND FRAME POLER - 11/29/2024 11:59 PM LINE AND FRAME POLER Hospital Encounter [facility] [address] [place] [address] Randi Kelley MD Discharge Disposition: Home or Self Care (Routine Discharge) 11/29/2024 Travel from Last 3 Months Social History Tobacco Use Types Packs/Day Years Used Date Smoking Tobacco: Never Assessed Comments Unknown Sex and Gender Information Value Date Recorded Sex Assigned at Not on file Legal Sex Female 11:00 AM LINE AND FRAME POLER Gender Identity Not on file Sexual Orientation Not on file Plan of Treatment Health Maintenance Due Date Last Done Comments Colorectal Cancer Screening Colonoscopy (10 Years) 1950 Hepatitis C 1967 DTaP, Tdap and Td Vaccines (1 - Tdap) 1968 Annual Medicare Wellness Visit 2014 Pneumococcal Vaccine: 65+ Years (1 of 1 - PCV) 2014 Zoster Vaccines Completed 08/05/2022, 05/11/2022 RSV Immunization or 60+ Years Completed 07/15/2023 Influenza Adult Completed 07/14/2024, 05/26, 08/01/2022, Additional history exists COVID-19 Vaccine Completed 07/26/2024, 05/2024, 07/15/2023, Additional history exists Dexa Scan (General) Completed 11/29/2024 Meningococcal B Vaccine Aged Out No l onger eligible based on patient's age to complete this topic Meningococcal Vaccine Aged Out No silas january eligible based on patient's age to complete this topic RSV Immunizations Under 20 Months Aged Out No longer eligible based on patient's age to complete this topic Procedures Procedure Name Priority Date/Time Associated Diagnosis Comments BONE DENSITY/DEXA Routine 11/29/2024 12: 09 PM LINE AND FRAME POLER Menopause Screening for osteoporosis Other specified disorders of bone density and structure, multiple sites from Last 3 Months Results * BONE DENSITY/DEXA (11/29/2024 12:09 PM LINE AND FRAME POLER) Anatomical Region Laterality Modality Bone Bone Density 11/29/2024 12:1 1 PM LINE AND FRAME POLER Impressions 11/29/2024 12:13 PM LINE AND FRAME POLER Impression: Consistent with osteoporosis in the left hip and osteopenia in the right hip. Ordered By: RANDI KELLEY Interpreted By: Ambrosio Short MD, 11/29/2024 12:11 PM Narrative 11/29/2024 12:13 PM LINE AND FRAME POLER [address] [place] [address] Examination: DEXA Bone densitometry Clinical history: Postmenopausal. Osteoporosis screening. History of spinal stimulator placement. Comparison: None. Technique: DEXA bone mineral density evaluation was performed over both hips in the AP projection utilizing standard imaging techniques. Assessment: The BMD measured at the femoral neck left is 0.560 g/cm2 with a T-score of -2.6 and a Z-score of -0.5. This patient is considered osteoporotic according to the world health organizations (WHO) criteria. Fracture risk is high. Pharmacological treatment, if not already prescribed should be considered. If pharmacological treatment is utilized, a followup bone density is recommended in one year to monitor response to therapy. The BMD measured at the femoral neck right is 0.598 g/cm2 with a T-score of -2.3 and a Z-score of -0.2. The patient is considered osteopenic according to World Health Organization (WHO) criteria. Bone density is between 10 and 25% below young normal. Fracture risk is moderate. Treatment is advised. FRAX 10-year fracture risk: Major Osteoporotic Fracture: 24%. Hip Fracture: 7.7%. Recommendations: All patients should ensure an adequate intake of dietary calcium and vitamin D. The NOF recommend adults under the age of 50 need 1000 mg of calcium and 400-800 IU of vitamin D daily. Effective therapy for the prevention and treatment of osteoporosis include biphosphonates. Follow-up: People with diagnosed cases of osteoporosis or at high risk for fracture should have regular bone mineral density test. For patients eligible for Medicare, routine testing is allowed once every 2 years. Testing frequency can be increased to one year for patients who have rapidly progressing disease, those who are receiving or discontinuing medical therapy to restore bone mass, or have additional risk factors. Based on these results, a followup exam is recommended in 1-2 years. Procedure Note Ambrosio Short MD - 11/29/[address] [place] [address] Examination: DEXA Bone densitometry Clinical history: Postmenopausal. Osteoporosis screening. History ofspinal stimulator placement. Comparison: None. Technique: DEXA bone mineral density evaluation was performed over bothhips in the AP projection utilizing standard imaging techniques. Assessment: The BMD measured at the femoral neck left is 0.560 g/cm2 with a T-score of-2.6 and a Z-score of -0.5. This patient is considered osteoporoticaccording to the world health organizations (WHO) criteria. Fracture riskis high. Pharmacological treatment, if not already prescribed should beconsidered. If pharmacological treatment is utilized, a followup bonedensity is recommended in one year to monitor response to therapy. The BMD measured at the femoral neck right is 0.598 g/cm2 with a T-scoreof -2.3 and a Z-score of -0.2. The patient is considered osteopenicaccording to World Health Organization (WHO) criteria. Bone density isbetween 10 and 25% below young normal. Fracture risk is moderate.Treatment is advised. FRAX 10-year fracture risk: Major Osteoporotic Fracture: 24%. Hip Fracture: 7.7%. Recommendations: All patients should ensure an adequate intake of dietary calcium andvitamin D. The NOF recommend adults under the age of 50 need 1000 mg ofcalcium and 400-800 IU of vitamin D daily. Effective therapy for theprevention and treatment of osteoporosis include biphosphonates. Follow-up: People with diagnosed cases of osteoporosis or at high risk for fractureshould have regular bone mineral density test. For patients eligible forMedicare, routine testing is allowed once every 2 years. Testing frequencycan be increased to one year for patients who have rapidly progressingdisease, those who are receiving or discontinuing medical therapy torestore bone mass, or have additional risk factors. Based on these results, a followup exam is recommended in 1-2 years. Impression: Consistent with osteoporosis in the left hip and osteopenia in the righthip. Ordered By: RANDI KELLEY Interpreted By: Ambrosio Short MD, 11/29/2024 12:11 PM Randi Kelley MD DEXA Final Res ult from Last 3 Months Insurance [facility] Care Teams Mill Manager Relationship Specialty Start Date End Date Randi Kelley MD [id number] [facility] [address] [address] PCP - General 11/29/24
== END 2024-12-06 14:43 | disposition home or self-care (01) ==
PROVIDERS: PCP Family Medicine; Visit Provider Family Medicine
DX: I35.0 Nonrheumatic aortic (valve) stenosis (principal); I35.1 Nonrheumatic aortic (valve) insufficiency
CPT/HCPCS: 93306

== ENCOUNTER 2025-04-24 13:02 | Emergency (ER) | payer MEDICARE, SELFPAY ==
--- NOTE | ~2025-04-24 | CT_ITS ---
EXAMINATION: CT brain wo con DATE: 04/24/2025 18:20 INDICATION: confusion . TECHNIQUE: Computed tomography (CT) of the head was performed without intravenous contrast. The mA wa s adjusted according to patient size. Iterative reconstruction technique was employed. The dose-lengt h product was 605.33 mGy-cm. COMPARISON: 06/19/2024. FINDINGS: No acute intracranial hemorrhage or extra-axial fluid collection. No hydrocephalus, mass, or herniation. No acute ischemic infarct. Unremarkable dural venous sinus attenuation. No acute osseous abnormality. The aerated spaces are clear. Mild atrophy and chronic white matter change. Atherosclerotic intracranial calcification. 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 IMPRESSION: No acute intracranial process. Reviewed, dictated and finalized at location K.
[2025-04-24 13:36] VITALS: BP 119/86; PULSE 79; RESP 14; TEMP 37; O2SAT 97
[2025-04-24 16:09] VITALS: BP 174/68; PULSE 79; RESP 17; TEMP 36.5; O2SAT 96
[2025-04-24 16:50] LABS: Add Urine Microscopic? YES; Appearance Urine Cloudy (Clear); Bacteria Urine 4+ /hpf; Bilirubin Urine Negative (Negative); Blood Urine Negative (Negative); Color Urine Yellow (Yellow); Glucose Urine UA Negative (Negative); Ketones Urine Trace mg/dL (Negative); Leukocyte Esterase Ur 3+ LEU/UL (Negative); Nitrate Urine Negative (Negative); Non Pathogenic Casts 0-2; Protein Urine 2+ mg/dL (Negative); RBC Urine 0-2 /hpf (0-2); Specific Grav Ur 1.018 (1.001-1.035); Squamous Epithelial Cell Urine None Seen /hpf (Few); Urobilinogen Urine 0.2 mg/dL (<2.0); WBC Urine >100 /hpf (0-3); pH Urine 7.5 (5.0-9.0)
[2025-04-24 17:32] LABS: Basophils Absolute Auto 0.1 K/mm3 (0.0-0.1); Basophils Percent Auto 0.8 % (0.2-1.2); Eosinophils Absolute Auto 0.1 K/mm3 (0-0.3); Eosinophils Percent Auto 1.6 % (0-4.4); Hematocrit 41.2 % (37.0-47.0); Hemoglobin 13.2 g/dL (12.0-15.0); Immature Granulocyte Absolute 0.02 K/mm3 (0.00-0.031); Immature Granulocyte Percent A 0.2 % (0-0.5); Lymphocytes Absolute Auto 1.48 K/mm3 (0.9-3.2); Lymphocytes Percent Auto 17.4 % (18.3-44.2); Mean Corpuscular Hemoglobin 29.9 pg (26-34); Mean Corpuscular Volume 93.4 fl (80-100); Mean Platelet Volume 10.7 fl (7.4-10.4); Monocytes Absolute Auto 0.8 K/mm3 (0.1-0.6); Neutrophils Absolute Auto 6.1 K/mm3 (1.3-6.7); Platelet Count Result 291 k/mm3 (150-375); Red Blood Count 4.41 M/mm3 (4.2-5.4); Red Cell Distribution Width 13.4 % (11.5-14.5); White Blood Count 8.5 K/mm3 (4.5-10.0)
--- NOTE | 2025-04-24 17:40 | ED.AMS ---
HPI - Altered Mental Status General Chief Complaint: Altered Mental Status Stated Complaint: Poss UTI, confusion, urinary retention Time Seen by Provider: 04/24/25 17:10 Source: patient and family Mode of arrival: ambulatory Limitations: no limitations History of Present Illness HPI narrative: This is a 74 year old female that presents to the ER with family for confusion. Reportedly worsening over the last 2 week. Reports history of UTI last year with similar symptoms. Concerned for another UTI. Patient does not have any focal complaints. Related Data Home Medications ?Medication ?Instructions ?Recorded ?Confirmed ?Last Taken ?Type multivitamin (Daily Multi-Vitamin 1 tablet PO DAILY 10/12/19 04/18/25 04/20/20 History tablet) vit C 250 mg-vit E 90 mg-zinc 40 1 tablet PO BID 04/12/20 04/18/25 04/20/20 History mg-copper 1 ch-hyzckx-nzkxlq capsule (PreserVision AREDS-2) whaycfz-ywrgueliu-sjcc 333 mg-133 1 tablet PO DAILY 12/10/22 04/18/25 Unknown History mg-5 mg tablet cholecalciferol (vitamin D3) 50 50 mcg PO DAILY 12/10/22 04/18/25 Unknown History mcg (2,000 unit) capsule hydrochlorothiazide 12.5 mg capsule mg PO 04/18/25 04/18/25 Unknown History Allergies Allergy/AdvReac Type Severity Reaction Status Date / Time metformin AdvReac Severe Diarrhea Verified 04/18/25 14:00 Review of Systems Review of Systems: All systems reviewed & are unremarkable except as noted in HPI and below PMFSH Past Medical History Medical History Generalized weakness Colon, diverticulosis Abnormal finding on ultrasound 8.8.22 calcified fibroid/ borderline endometrium 3.7 mm Degenerative scoliosis Shingles Hepatitis Back pain Arthritis Anemia Surgical History Surgical History S/P shoulder surgery Fracture of greater tuberosity of left humerus ORIF March 2020 History of tonsillectomy and adenoidectomy History of hernia repair (~05/04/13) History of hernia repair (~05/30/15) Hx of appendectomy (~12/31/11) Family History Family History (Updated 04/18/25 @ 15:03 by Randi Kelley MD) Grandparent Diabetes mellitus Father Acute myocardial infarction, Onset Age: 49 Sibling Malignant neoplasm of prostate Daughter Hemochromatosis Social History Social History Smoking status: Never smoker Second hand tobacco smoke exposure: No Alcohol intake: never Substance use: never Substance use type: does not use Do You Feel Safe in your Home?: Yes Lack of Transportation: No Lack of Food: Never True Current Housing: I Have Housing Concerned About Future Housing: No Difficulty Paying Gas/Electric Bills: No Difficulty Paying for Meds: No Currently Unemployed: No Education: High School Diploma/GED Difficulty w/ Childcare or Family Care: No Living arrangements: with family Spiritual care concerns: No Exam Narrative: GENERAL: Elderly, well-nourished, and in no acute distress. HEAD: Normocephalic, atraumatic. EYES: PERRLA and EOMI. ENT: Nares clear, no rhinorrhea or epistaxis. Mucous membranes moist. Oropharynx without tonsillar hypertrophy exudate or other lesions. Bilateral TMs pearly [place] non-bulging NECK: Supple. No adenopathy or masses. CHEST: Clear to auscultation. No respiratory distress. No wheezes rales or rhonchi HEART: Regular rate and rhythm. No murmur heard. Normal peripheral pulses. ABDOMEN: No CVA tenderness EXTREMITIES: Normal range of motion. No edema. Strength equal bilateral upper and lower extremities (5/5) SKIN: Warm, dry, no rash. NEURO: No focal deficits. Alert and oriented x3. Cranial nerves 2-12 grossly intact PSYCH: Normal mood and affect Course Course Emergency Course: patient and family updated on workup. We spoke about further inpatient management with IV antibiotics versus outpatient management with close follow up. They prefer patient to be discharged with oral antibiotics Vital Signs Vital signs: Vital Signs Temperature 98.6 F 04/24/25 13:36 Pulse Rate 79 04/24/25 13:36 Respiratory Rate 14 04/24/25 13:36 Blood Pressure 119/86 04/24/25 13:36 Pulse Oximetry 97 04/24/25 13:36 Oxygen Delivery Room Air 04/24/25 13:36 Temperature 97.7 F 04/24/25 16:09 Pulse Rate 79 04/24/25 16:09 Respiratory Rate 17 04/24/25 16:09 Blood Pressure 174/68 H 04/24/25 16:09 Pulse Oximetry 96 04/24/25 16:09 Oxygen Delivery Room Air 04/24/25 13:36 MDM - Altered Mental Status MDM Narrative Medical decision making narrative: Patient presents emergency department for increasing confusion noted over the last couple of weeks. Patient is afebrile and nontoxic appearing. Her vitals are stable. She is neurologically intact. Cbc without leukocytosis. Metabolic panel with some evidence of dehydration, patient hydrated with IV fluids in the ED. Urine with evidence of infection. This was sent for culture. Blood cultures obtained patient started on IV antibiotics. Patient and family updated on workup. We spoke about further inpatient management with IV antibiotics versus outpatient management with close follow up. They prefer patient to be discharged with oral antibiotics. They were given warnings to return to the ER Differential Diagnosis Differential diagnosis: Likely altered mental status, delirium, dementia and other (UTI, electrolyte derangement, dehydration) Lab Data Attestation: I reviewed the patient's lab results. 04/24/25 17:26 04/24/25 17:26 Labs: Lab Results 04/24/25 04/24/25 Range/Units 16:40 17:26 WBC 8.5 (4.5-10.0) K/mm3 RBC 4.41 (4.2-5.4) M/mm3 Hgb 13.2 D (12.0-15.0) g/dL Hct 41.2 (37.0-47.0) % MCV 93.4 (80-100) fl MCH 29.9 (26-34) pg MCHC 32.0 (32-36) g/dl RDW 13.4 (11.5-14.5) % Plt Count 291 (150-375) k/mm3 MPV 10.7 H (7.4-10.4) fl Immature Gran % (Auto) 0.2 (0-0.5) % Neut % (Auto) 71.0 (45.5-73.1) % Lymph % (Auto) 17.4 L (18.3-44.2) % [place] % (Auto) 9.0 H (2.6-8.5) % Eos % (Auto) 1.6 (0-4.4) % Baso % (Auto) 0.8 (0.2-1.2) % Lymph # (Auto) 1.48 (0.9-3.2) K/mm3 [place] # (Auto) 0.8 H (0.1-0.6) K/mm3 Eos # (Auto) 0.1 (0-0.3) K/mm3 Baso # (Auto) 0.1 (0.0-0.1) K/mm3 Abs Immat Gran (auto) 0.02 (0.00-0.031) K/mm3 Absolute Neuts (auto) 6.1 (1.3-6.7) K/mm3 Absolute Nucleated RBC 0.000 (0.0-0.012) K/mm3 Nucleated RBC % 0.0 (0.0-0.2) % Sodium 139 (137-145) mmol/L Potassium 4.4 (3.4-5.0) mmol/L Chloride 101 (98-107) mmol/L Carbon Dioxide 25 (22-30) mmol/L Anion Gap 13 H (4-12) mmol/L BUN 21 H D (7-17) mg/dL Creatinine 0.92 (0.7-1.0) mg/dL Estim Creat Clear Calc 39 ml/min Estimated GFR 60 (59 - ) Glucose 117 H (65-110) mg/dL Lactic Acid 0.9 (0.7-2.0) mmol/L Calcium 10.6 H (8.4-10.2) mg/dL Total Bilirubin 0.6 (0.2-1.3) mg/dL AST 35 (14-36) U/L ALT 23 (6-35) U/L Alkaline Phosphatase 82 (38-126) U/L Total Creatine Kinase 102 (30-135) U/L C-Reactive Protein < 0.5 (<1.0) mg/dL Total Protein 8.5 H (6.3-8.2) g/dL Albumin 4.8 (3.5-5.1) g/dL Urine Color Yellow (Yellow) Urine Appearance Cloudy H (Clear) Urine pH 7.5 (5.0-9.0) Ur Specific [place] 1.018 (1.001-1.035) Urine Protein 2+ H (Negative) mg/dL Urine Glucose (UA) Negative (Negative) mg/dL Urine Ketones Trace H (Negative) mg/dL Ur Blood (Man) Negative (Negative) Urine Nitrate Negative (Negative) Urine Bilirubin Negative (Negative) Urine Urobilinogen 0.2 (<2.0) mg/dL Leukocyte Esterase Rfl 3+ H (Negative) KAROLINE/UL Urine RBC 0-2 (0-2) /hpf Urine WBC >100 H (0-3) /hpf Ur Squamous Epith Cells None seen (Few) /hpf Urine Bacteria 4+ /hpf Urine Casts 0-2 Imaging Data Radiologist's impression: ITS Impressions Head CT 04/24/25 18:27 IMPRESSION: No acute intracranial process. Critical Care Time Critical Care Time Critical Care Time: No Discharge Plan Discharge Clinical Impression: Acute UTI, Confusion Patient Disposition: Home Condition: Stable Instructions: Antibiotic Form, Urinary Tract Infection in Older Adults (ED) Additional Instructions: Return to the emergency department if you experience fever, chest pain, shortness of breath, abdominal pain with nausea and vomiting, weakness, numbness, or any other symptoms that are concerning to you. Remain well hydrated. Take oral antibiotic as prescribed Follow up with your primary care doctor Patient Language: Occitan Prescriptions: New cefdinir 300 mg capsule 300 mg PO Q12H 5 Days Qty: 10 0RF No Action multivitamin [Daily Multi-Vitamin] Tablet 1 tablet PO DAILY cholecalciferol (vitamin D3) 50 mcg (2,000 unit) capsule 50 mcg PO DAILY dergwai-iwkjupgwi-yjkl 333-133-5 mg tablet 1 tablet PO DAILY hydrochlorothiazide 12.5 mg capsule PO triamcinolone acetonide 0.1 % cream 1 applic topical TID Qty: 453.6 0RF PreserVision AREDS-2 [id number] ko-uxdw-kf-mg capsule 1 tablet PO BID Rx Instructions: administer with meals iron, carbonyl 25 mg iron tablet 50 mg PO DAILY Qty: 90 3RF gabapentin 300 mg capsule 300 mg PO DAILY Qty: 90 3RF Rx Instructions: TAKE 1 CAPSULE BY MOUTH EVERY DAY tizanidine 2 mg tablet See Rx Instructions .ROUTE .COMPLEX Qty: 90 11RF Dose Instruction: TAKE 1 TABLET THREE TIMES DAILY NEEDED FOR MUSCLE SPASTICITY Rx Instructions: TAKE 1 TABLET THREE TIMES DAILY NEEDED FOR MUSCLE SPASTICITY alendronate 70 mg tablet 70 mg PO WEEKLY Qty: 14 3RF lisinopril 40 mg tablet See Rx Instructions .ROUTE .COMPLEX Qty: 90 1RF Dose Instruction: TAKE 1 TABLET EVERY DAY Rx Instructions: TAKE 1 TABLET EVERY DAY hydralazine 25 mg tablet 25 mg PO BID Qty: 60 5RF furosemide 20 mg tablet 20 mg PO QAM PRN (Reason: Edema) Qty: 90 1RF diclofenac sodium 75 mg tablet,delayed release (DR/EC) 75 mg PO BID PRN (Reason: pain) Qty: 180 1RF oxybutynin chloride 10 mg tablet extended release 24hr 10 mg PO DAILY PRN (Reason: Overactive Bladder) Qty: 90 1RF Rx Instructions: TAKE 1 TABLET EVERY DAY NEEDED FOR OVERACTIVE BLADDER atorvastatin 10 mg tablet 10 mg PO DAILY Qty: 90 1RF Rx Instructions: TAKE 1 TABLET EVERY DAY tramadol 50 mg tablet 50 mg PO Q6H PRN (Reason: pain) Qty: 120 5RF Follow-up/Referrals: Randi Kelley MD [Primary Care Provider] -
[2025-04-24 17:41] LABS: Lactic Acid Reflex 0.9 mmol/L (0.7-2.0)
[2025-04-24 17:45] LABS: Alanine Aminotransferase 23 U/L (6-35); Albumin Level 4.8 g/dL (3.5-5.1); Alkaline Phosphatase 82 U/L (38-126); Anion Gap 13 mmol/L (4-12); Aspartate Amino Transferase 35 U/L (14-36); Bilirubin,Total 0.6 mg/dL (0.2-1.3); Blood Urea Nitrogen 21 mg/dL (7-17); CRP. < 0.5 mg/dL (<1.0); Calcium 10.6 mg/dL (8.4-10.2); Carbon Dioxide 25 mmol/L (22-30); Chloride 101 mmol/L (98-107); Creatine Kinase 102 U/L (30-135); Estimated CRCL calculation 39 ml/min; Estimated Glomerular Filt Rate 60; Glucose 117 mg/dL (65-110); Potassium 4.4 mmol/L (3.4-5.0); Sodium 139 mmol/L (137-145); Total Protein 8.5 g/dL (6.3-8.2)
--- OUTSIDE RECORDS SUMMARY | 2025-04-24 17:48 | XMS_ITS | Clinical Summary ---
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 Gender Identity Not on file Sexual Orientation Not on file Plan of Treatment Health Maintenance Due Date Last Done Comments Colorectal Cancer Screening Colonoscopy (10 Years) 1950 Hepatitis C 1968 DTaP, Tdap and Td Vaccines (1 - Tdap) 1968 Pneumococcal Vaccine: 50+ Years (1 of 1 - PCV) 1999 Annual Medicare Wellness Visit 2014 COVID-19 Vaccine ( season) 2025 07/26/2024, 01/01/2024, 07/15/2023, Additional history exists Zoster Vaccines Completed 08/05/2022, 05/11/2022 RSV Immunization or 60+ Years Completed 07/15/2023 Dexa Scan (General) Completed 11/29/2024 Meningococcal B [...] BONE DENSITY/DEXA Routine 11/29/2024 12: 09 PM OIL BURNER REPAIRER Menopause Screening for osteoporosis Other specified disorders of bone density and structure, multiple sites from Last 3 Months or Most Recently Relevant to Health Maintenance Results * BONE DENSITY/DEXA (11/29/2024 12:09 PM OIL BURNER REPAIRER) Anatomical Region Laterality Modality Bone Bone Density 11/29/2024 12:1 1 PM OIL BURNER REPAIRER Impressions 11/29/2024 12:13 PM OIL BURNER REPAIRER Impression: Consistent with osteoporosis in the left hip and osteopenia in the right hip. Ordered By: RANDI KELLEY Interpreted By: Ambrosio Short MD, 11/29/2024 12:11 PM Narrative 11/29/2024 12:13 PM OIL BURNER REPAIRER [address] [place] [address] Examination: DEXA Bone densitometry Clinical history: Postmenopausal. [...] Procedure Note Ambrosio Short MD - 11/29/[address] [place] [address] Examination: DEXA Bone densitometry Clinical history: Postmenopausal. [...] bone mineral density test. [facility], routine testing is allowed once every 2 [...] By: Ambrosio Short MD, 11/29/2024 12:11 PM us Randi Kelley MD DEXA Final Res ult from Last 3 Months or Most Recently Relevant to Health Maintenance Insurance [facility] Care Teams Entry Level Installation Technician Relationship Specialty Start Date End Date Randi Kelley MD [facility] [address] [address] PCP - General 11/29/24
[2025-04-24] MEDS: SODIUM CHLORIDE 0.9% IV 500 ML 999 ML IV CONT (18:53)
== END 2025-04-24 19:16 | disposition home or self-care (01) ==
PROVIDERS: Student in an Organized Health Care Education/Training Program; Emergency Provider Physician Assistant; PCP Family Medicine
DX: N39.0 Urinary tract infection, site not specified (principal); F44.89 Other dissociative and conversion disorders
CPT/HCPCS: 36415; 70450; 80053; 81001; 82550; 83605; 85025; 86140; 87040; 87077; 87086; 87186; 96361; 96365; 99284; J0696; J7040

== ENCOUNTER 2025-05-03 16:22 | Outpatient (NON) | payer MEDICARE, SELFPAY ==
--- OUTSIDE RECORDS SUMMARY | 2025-05-03 16:24 | XMS_ITS | Clinical Summary ---
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 Gender Identity Not on file Sexual Orientation [...] BONE DENSITY/DEXA Routine 11/29/2024 12: 09 PM EBD SPECIAL EDUCATION TEACHER Menopause Screening for osteoporosis Other specified disorders of bone density and structure, multiple sites from Last 3 Months or Most Recently Relevant to Health Maintenance Results * BONE DENSITY/DEXA (11/29/2024 12:09 PM EBD SPECIAL EDUCATION TEACHER) Anatomical Region Laterality Modality Bone Bone Density 11/29/2024 12:1 1 PM EBD SPECIAL EDUCATION TEACHER Impressions 11/29/2024 12:13 PM EBD SPECIAL EDUCATION TEACHER Impression: Consistent with osteoporosis in the left hip and osteopenia in the right hip. Ordered By: RANDI KELLEY Interpreted By: Ambrosio Short MD, 11/29/2024 12:11 PM Narrative 11/29/2024 12:13 PM EBD SPECIAL EDUCATION TEACHER [address] [place] [address] Examination: DEXA Bone densitometry Clinical history: Postmenopausal. [...] Procedure Note Ambrosio Short MD - 11/29/[address] [place] [address] Examination: DEXA Bone densitometry Clinical history: Postmenopausal. [...] bone mineral density test. [facility], [facility] testing is allowed once every [...] Most Recently Relevant to Health Maintenance Insurance [facility] Care Teams Apartment House Manager Relationship Specialty Start Date End Date Randi Kelley MD [facility] [address] [address] PCP - General 11/29/24
[2025-05-03 20:21] LABS: Add Urine Microscopic? YES; Appearance Urine Cloudy (Clear); Glucose Urine UA Negative (Negative); Leukocyte Esterase Ur Trace LEU/UL (Negative); Nitrate Urine Negative (Negative); Non Pathogenic Casts 0-2; Specific Grav Ur 1.019 (1.001-1.035)
== END 2025-05-03 16:23 | disposition home or self-care (01) ==
LOC: ANHGOSHLAB 16:23
PROVIDERS: PCP Family Medicine; Visit Provider Family Medicine
DX: R30.0 Dysuria (principal); R82.90 Unspecified abnormal findings in urine
CPT/HCPCS: 81001

== ENCOUNTER 2025-10-20 14:52 | Outpatient (CLI) | payer MEDICARE, SELFPAY ==
[2025-10-20 19:40] LABS: Alanine Aminotransferase 28 U/L (6-35); Albumin Level 4.3 g/dL (3.5-5.1); Alkaline Phosphatase 78 U/L (38-126); Anion Gap 6 mmol/L (4-12); Aspartate Amino Transferase 39 U/L (14-36); Bilirubin,Total 0.5 mg/dL (0.2-1.3); Blood Urea Nitrogen 23 mg/dL (7-17); Calcium 10.6 mg/dL (8.4-10.2); Carbon Dioxide 29 mmol/L (22-30); Chloride 102 mmol/L (98-107); Cholesterol 137 mg/dL (0-200); Estimated Glomerular Filt Rate 50; Glucose 190 mg/dL (65-110); HDL Direct 73 mg/dL; Potassium 4.3 mmol/L (3.4-5.0); Sodium 137 mmol/L (137-145); Total Protein 7.4 g/dL (6.3-8.2); Triglycerides 117 mg/dL (<150)
[2025-10-20 20:08] LABS: Hemoglobin A1C 5.6 % (<5.7)
== END 2025-10-20 14:53 | disposition home or self-care (01) ==
PROVIDERS: PCP Family Medicine; Visit Provider Family Medicine
DX: E11.42 Type 2 diabetes mellitus with diabetic polyneuropathy (principal); E83.110 Hereditary hemochromatosis; Z83.49 Family history of other endocrine, nutritional and metabolic diseases; R30.0 Dysuria; R82.90 Unspecified abnormal findings in urine
CPT/HCPCS: 36415; 80053; 80061; 83036

== ENCOUNTER 2025-10-23 09:24 | Outpatient (NON) | payer MEDICARE, SELFPAY ==
--- OUTSIDE RECORDS SUMMARY | 2025-10-23 09:41 | XMS_ITS | Clinical Summary ---
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 Gender Identity Not on file Sexual Orientation Not on file Plan of Treatment Health Maintenance Due Date Last Done Comments Hepatitis C 1968 DTaP, Tdap and Td Vaccines (1 - Tdap) 1968 Pneumococcal Vaccine: 50+ Years (1 of 1 - PCV) 1999 Annual Medicare Wellness Visit 2014 COVID-19 Vaccine ( season) 2025 07/26/2024, 01/01/2024, 07/15/2023, Additional history exists Influenza Adult (#1) 2025 07/14/2024, 06/12/2023, 08/01/2022, Additional history exists Zoster Vaccines Completed 08/05/2022, 05/11/2022 RSV Immunization or 60+ Years Completed 07/15/2023 Dexa Scan (General) Completed 11/29/2024 Hepatitis A Vaccines Aged Out No long er eligible based on patient's age to complete this topic Meningococcal B Vaccine Aged Out No l [...] BONE DENSITY/DEXA Routine 11/29/2024 12: 09 PM SENIOR SALESFORCE DEVELOPER Menopause Screening for osteoporosis Other specified disorders of bone density and structure, multiple sites from Last 3 Months or Most Recently Relevant to Health Maintenance Results * BONE DENSITY/DEXA (11/29/2024 12:09 PM SENIOR SALESFORCE DEVELOPER) Anatomical Region Laterality Modality Bone Bone Density 11/29/2024 12:1 1 PM SENIOR SALESFORCE DEVELOPER Impressions 11/29/2024 12:13 PM SENIOR SALESFORCE DEVELOPER Impression: Consistent with osteoporosis in the left hip and osteopenia in the right hip. Ordered By: RANDI KELLEY Interpreted By: Ambrosio Short MD, 11/29/2024 12:11 PM Narrative 11/29/2024 12:13 PM SENIOR SALESFORCE DEVELOPER [address] [place] [address] Examination: DEXA Bone densitometry Clinical history: Postmenopausal. [...] Procedure Note Ambrosio Short MD - 11/29/[address] [place] [address] Examination: DEXA Bone densitometry Clinical history: [...] bone mineral density test. For [facility], routine testing is allowed once every 2 [...] Most Recently Relevant to Health Maintenance Insurance [employer] Care Teams Artificial Flowers Starcher Relationship Specialty Start Date End Date Randi Kelley MD [address] [facility] [address] [address] PCP - General 11/29/24
[2025-10-23 13:56] LABS: Add Urine Microscopic? YES; Appearance Urine Turbid (Clear); Glucose Urine UA Negative (Negative); Leukocyte Esterase Ur 1+ LEU/UL (Negative); Need Manual Microscopic Reviewed; Nitrate Urine Negative (Negative); Non Pathogenic Casts 0-2; Specific Grav Ur 1.025 (1.001-1.035)
[2025-10-23 14:52] LABS: MALB Creatinine Ratio 78.4 mg/g (0-30)
== END 2025-10-23 09:25 | disposition home or self-care (01) ==
LOC: ANHGOSHLAB 09:26
PROVIDERS: PCP Family Medicine; Visit Provider Family Medicine
DX: R30.0 Dysuria (principal); R82.90 Unspecified abnormal findings in urine
CPT/HCPCS: 81001; 82043; 87086